=== PATIENT | male | born 1930 | race Caucasian/White ===

== ENCOUNTER → 2016-12-29 | Outpatient (CLI) | payer OTHER, BC ==
[2016-07-06 11:44] VITALS: BP 75/41
[2016-12-29 09:56] LABS: CREATININE 1.33 mg/dL (0.70-1.30)
--- NOTE | 2016-12-29 17:28 | MRI ---
HISTORY: Radiculopathy. Study: MRI lumbar spine without contrast. Comparison: MRI lumbar spine dated May 14, 2016. Technique: Multiplanar multi-sequence MRI of the lumbar spine was obtained. Sagittal T1, sagittal T 2, and stir weighted images, axial T1, and axial T2 images were obtained. Findings: Patient is status post posterior fusion at L4-L5. Otherwise, anatomic alignment without acute fractu re or listhesis. Multilevel disc desiccation with moderate disc height loss at L4-L5. Associated typ e 1 Modic endplate changes. The conus medullaris terminates at L1. A small seroma seen posterior to the surgical site. Otherwise, the soft tissues are unremarkable. L1 -- L2: No significant disc bulge, neural foraminal narrowing, or spinal canal stenosis. L2 -- L3: No significant disc bulge, neural foraminal narrowing, or spinal canal stenosis. L3 -- L4: Broad-based disc bulge with associated moderate to severe ligamentum flavum/facet hypertro phy causing moderate left and mild/moderate right neural foraminal narrowing. No significant spinal canal stenosis. L4 -- L5: No significant recurrent disc bulge. Moderate to severe facet hypertrophy causing moderate to severe bilateral neural foraminal narrowing. No significant spinal canal stenosis. L5 -- S1: Broad-based disc bulge with associated moderate to severe ligamentum flavum/facet hypertro phy causing bilateral moderate to severe neural foraminal narrowing. No significant spinal canal demi nosis. IMPRESSION: Postsurgical and chronic degenerative changes as above. Reported By:
== END | disposition home or self-care (01) | DRG 552 ==
LOC: RAD 09:10
PROVIDERS: ATTEND Neurological Surgery
DX: M51.26 Other intervertebral disc displacement, lumbar region (principal); M54.16 Radiculopathy, lumbar region
CPT/HCPCS: 36415; 72148; 82565; 84520

== ENCOUNTER → 2017-05-10 | Outpatient (CLI) | payer OTHER, BC ==
[2016-07-06 11:44] VITALS: BP 75/41
[2017-05-10 09:35] LABS: BASOPHILS # (AUTO) 0.1 X10^3/uL (0.0-0.1); BASOPHILS % (AUTO) 0.8 % (0.2-1.0); EOSINOPHILS # (AUTO) 0.5 x10^3/uL (0.0-0.2); EOSINOPHILS % (AUTO) 5.8 % (0.9-2.9); HEMOGLOBIN 12.4 g/dL (13.5-18.0); LYMPHOCYTES # (AUTO) 2.8 X10^3/uL (1.3-2.9); MEAN CORPUSCULAR HEMOGLOBIN 30.3 pg (27.0-34.0); MEAN CORPUSCULAR HGB CONC 34.4 g/dL (33.0-35.0); MEAN CORPUSCULAR VOLUME 88.3 fL (80.0-100.0); MEAN PLATELET VOLUME 7.8 fL (7.4-11.0); MONOCYTES # (AUTO) 0.7 x10^3/uL (0.3-0.8); MONOCYTES % (AUTO) 7.6 % (0.0-13.0); NEUTROPHILS # (AUTO) 4.7 x10^3/uL (2.2-4.8); NEUTROPHILS % (AUTO) 53.8 % (42.0-75.0); PLATELET COUNT 218 X10^3/uL (150.0-450.0); RED BLOOD COUNT 4.07 X10^6/uL (4.7-6.0); RED CELL DISTRIBUTION WIDTH 13.4 % (11.6-16.5); WHITE BLOOD COUNT 8.7 X10^3/uL (3.6-10.0)
[2017-05-10 09:38] LABS: ALBUMIN 3.5 g/dL (3.4-5.0); BLOOD UREA NITROGEN 22 mg/dL (7-18); CALCIUM 9.2 mg/dL (8.5-10.1); CARBON DIOXIDE 28.3 mmol/L (21-32); CHLORIDE 103 mmol/L (98-107); CREATININE 1.39 mg/dL (0.70-1.30); PHOSPHORUS 2.7 mg/dL (2.6-4.7); SODIUM 138 mmol/L (136-145); URIC ACID 5.6 mg/dL (3.5-7.2); eGFR BLACK RACES > 60 (>60); eGFR NON BLACK RACES 52 (>60)
[2017-05-10 09:52] LABS: CREATININE,URINE 60.96 mg/dL (40-278); TOTAL PROTEIN,URINE 7.3 mg/dl (0-11.9)
== END ==
LOC: LAB 08:51
PROVIDERS: ATTEND Internal Medicine
DX: I12.9 Hypertensive chronic kidney disease with stage 1 through stage 4 chronic kidney disease, or unspecified chronic kidney disease (principal); N18.9 Chronic kidney disease, unspecified
CPT/HCPCS: 36415; 80069; 82570; 84157; 84550; 85025

== ENCOUNTER 2019-09-20 09:42 | Inpatient (IN) ==
--- NOTE | 2019-09-20 09:56 | DR.SOBA ---
HPI - Time Seen Time seen: 09:55 - HPI Comment HPI Comment: Patient complaint of fever dyspnea onset today. Saw Dr. PETERS for last 2 weeks for stomache soreness. Patient here for further test and fever. - COVID-19 Coronavirus risk:travel/contact w/high risk person: No Has patient experienced Coronavirus symptoms: Yes Coronavirus symptoms experienced: Fever, Shortness of Breath - Reviewed Nurses Notes Reviewed: Yes - Source History Provided: Patient - Mode of Arrival Mode of Arrival: EMS - Context Onset:: At Rest History of:: None Currently on:: Neither - Modifying Factors Worsens:: Nothing - Associated Signs and Symptoms Associated Signs and Symptoms: Fever - If Cough Cough: None PMH - PMH Past Medical History: Dyslipidemia, GERD, Hypertension, Hypothyroidism Past Surgical History: Yes Surgical History: Ortho Surgery, Tonsillectomy - Social History Does patient currently use any type of tobacco product: No Do you use any recreational Drugs:: No ROS - Review of Systems Constitutional: Fever, Weakness Eyes: No Symptoms Reported ENTM: No Symptoms Reported Respiratoy: Short of Breath Cardiovascular: No Symptoms Reported Gastrointestinal/Abdominal: Abdominal Pain Genitourinary: No Symptoms Reported Neurological: No Symptoms Reported Musculoskeletal: No Symptoms Reported Integumentary: No Symptoms Reported Hematologic/Lymphatic: No Symptoms Reported Endocrine: No Symptoms Reported Psychiatric: No Symptoms Reported All Other Systems: Reviewed and Negative PE - General Limitations: No Limitations General Appearance: Alert, In No Apparent Distress - Head Head Exam: Normal Inspection - Eyes Eye exam: Normal Appearance, EOMI - ENT ENT Exam: Normal Exam, Normal Oropharynx - Neck Neck Exam: Normal Inspection, Full ROM, Trachea Midline - Chest Chest Inspection: Normal Inspection - Respiratory Respiratory Exam: Normal Lung Sounds Bilat, Accessory Muscle Use Respiratory Exam: Bilateral Clear to Auscultation - Cardiovascular Cardiovascular Exam: Tachycardia - Abdominal Exam Abdominal Exam: Normal Inspection, Normal Bowel Sounds, Soft. negative: Distent ion, Tenderness, Guarding Abdominal Tenderness: Epigastrium - Extremities Extremities Exam: Normal Inspection - Back Back Exam: Normal Inspection, Full ROM - Neurologic Neurological Exam: Alert, Oriented X3, CN II-XII Intact - Psychiatric Psychiatric Exam: Normal Mood - Skin Skin Exam: Intact, Normal Color - Vital Signs Vitals: Temperature 102.5 F Pulse Rate [Left Radial] 104 Pulse Rate 118 Respiratory Rate 18 Blood Pressure [Right Arm] 89/41 Blood Pressure [Left Arm] 128/61 Blood Pressure [Standing] 89/50 Blood Pressure [Sitting] 110/61 Blood Pressure [Lying] 109/52 Blood Pressure 125/56 O2 Sat by Pulse Oximetry 100 Course - Treatment Treatment: 1211: case discussed with DR. Peters [place] start sepsis protocol ROR - Labs Reviewed Result Diagrams: 09/20/19 10:05 09/20/19 10:05 - XRAY XRAY Interpreted by: Radiologist - Labs Reviewed Laboratory: WBC 16.8 X10^3/uL (3.6-10.0) H 09/20/19 10:05 RBC 3.27 X10^6/uL (4.7-6.0) L 09/20/19 10:05 Hgb 9.9 g/dL (13.5-18.0) L 09/20/19 10:05 Hct 29.6 % (42.0-54.0) L 09/20/19 10:05 MCV 90.5 fL (80.0-100.0) 09/20/19 10:05 MCH 30.4 pg (27.0-34.0) 09/20/19 10:05 MCHC 33.6 g/dL (33.0-35.0) 09/20/19 10:05 RDW 13.5 % (11.6-16.5) 09/20/19 10:05 Plt Count 360 X10^3/uL (150.0-450.0) 09/20/19 10:05 Plt Count Comment Adequate (ADEQUATE) 09/20/19 10:05 MPV 7.0 fL (7.4-11.0) L 09/20/19 10:05 Neut % (Auto) 95.2 % (42.0-75.0) H 09/20/19 10:05 Lymph % (Auto) 3.7 % (21.0-51.0) L 09/20/19 10:05 [place] % (Auto) 0.2 % (0.0-13.0) 09/20/19 10:05 Eos % (Auto) 0.7 % (0.9-2.9) L 09/20/19 10:05 Baso % (Auto) 0.2 % (0.2-1.0) 09/20/19 10:05 Neut # (Auto) 16.0 x10^3/uL (2.2-4.8) H 09/20/19 10:05 Lymph # (Auto) 0.6 X10^3/uL (1.3-2.9) L 09/20/19 10:05 [place] # (Auto) 0 x10^3/uL (0.3-0.8) L 09/20/19 10:05 Eos # (Auto) 0.1 x10^3/uL (0.0-0.2) 09/20/19 10:05 Baso # (Auto) 0.0 X10^3/uL (0.0-0.1) 09/20/19 10:05 Absolute Nucleated RBC 0.0 /100WBC 09/20/19 10:05 Total Counted 100 09/20/19 10:05 Neutrophils % (Manual) 91 % (39-76) H 09/20/19 10:05 Band Neutrophils % 4 % (0-10) 09/20/19 10:05 Lymphocytes % (Manual) 4 % (13-43) L 09/20/19 10:05 Monocytes % (Manual) 1 % (4-9) L 09/20/19 10:05 Plt Morphology Comment Normal (NORMAL) 09/20/19 10:05 RBC Morphology Normal (NORMAL) 09/20/19 10:05 ESR 108 MM/HOUR (0-15) H 09/20/19 10:05 Sodium 135 mmol/L (136-145) L 09/20/19 10:05 Corrected Sodium 136 mmol/L (136-145) 09/20/19 10:05 Potassium 4.5 mmol/L (3.5-5.1) 09/20/19 10:05 Chloride 100 mmol/L (98-107) 09/20/19 10:05 Carbon Dioxide 25.3 mmol/L (21-32) 09/20/19 10:05 BUN 33 mg/dL (7-18) H 09/20/19 10:05 Creatinine 2.10 mg/dL (0.70-1.30) H 09/20/19 10:05 Est GFR (MDRD) Af Amer 39 (>60) L 09/20/19 10:05 Est GFR (MDRD) Non-Af 32 (>60) L 09/20/19 10:05 Glucose 123 mg/dL (65-99) H 09/20/19 10:05 Calcium 8.5 mg/dL (8.5-10.1) 09/20/19 10:05 Corrected Calcium 9.9 mg/dL (8.5-10.1) 09/20/19 10:05 Total Bilirubin 0.50 mg/dL (0.2-1.0) 09/20/19 10:05 AST 25 Units/L (15-37) 09/20/19 10:05 ALT 28 Units/L (12-78) 09/20/19 10:05 Alkaline Phosphatase 147 Units/L (46-116) H 09/20/19 10:05 C-Reactive Protein 178.70 mg/L (0-3.0) H 09/20/19 10:05 Total Protein 6.9 g/dL (6.4-8.2) 09/20/19 10:05 Albumin 2.3 g/dL (3.4-5.0) L 09/20/19 10:05 Globulin 4.6 g/dL (2.5-4.5) H 09/20/19 10:05 Albumin/Globulin Ratio 0.5 Ratio (1.1-2.1) L 09/20/19 10:05 Influenza Type A Ag Negative-presumptive (NEGATIVE) 09/20/19 10:15 Influenza Type B Ag Negative-presumptive (NEGATIVE) 09/20/19 10:15 Mycoplasma pneumon IgG Negative (NEGATIVE) 09/20/19 10:05 S. pyogenes (TEM-PCR) Not detected (NOT DETECT) 09/20/19 10:15 - XRAY Xray Findings: GB ultrasound: hepatic steatosis AAS: No acute findings (NEDRA DO) Opioid - Opioid Risk Tool Total: 0 Total Score Risk Category: Low Risk - Diagnosis Discharge Problem: Sepsis associated hypotension - Discharge Plan Condition: Stable - Follow ups/Referrals Follow ups/Referrals: BRITTANIE PETERS [Primary Care Provider] - 3 days - Instructions
[2019-09-20] MEDS ORDERED: XOPENEX 1.25 MG/3 ML NEBULE NEB ONE ×2 (10:01→10:15)
[2019-09-20 10:09] VITALS: BMI 25.1
[2019-09-20 10:09] LABS: BASOPHILS % (AUTO) 0.2 % (0.2-1.0); EOSINOPHILS # (AUTO) 0.1 x10^3/uL (0.0-0.2); EOSINOPHILS % (AUTO) 0.7 % (0.9-2.9); HEMATOCRIT 29.6 % (42.0-54.0); HEMOGLOBIN 9.9 g/dL (13.5-18.0); LYMPHOCYTES # (AUTO) 0.6 X10^3/uL (1.3-2.9); LYMPHOCYTES % (AUTO) 3.7 % (21.0-51.0); MEAN CORPUSCULAR HEMOGLOBIN 30.4 pg (27.0-34.0); MEAN CORPUSCULAR HGB CONC 33.6 g/dL (33.0-35.0); MEAN CORPUSCULAR VOLUME 90.5 fL (80.0-100.0); MONOCYTES # (AUTO) 0 x10^3/uL (0.3-0.8); MONOCYTES % (AUTO) 0.2 % (0.0-13.0); NEUTROPHILS % (AUTO) 95.2 % (42.0-75.0); PLATELET COUNT 360 X10^3/uL (150.0-450.0); RED BLOOD COUNT 3.27 X10^6/uL (4.7-6.0); RED CELL DISTRIBUTION WIDTH 13.5 % (11.6-16.5); WHITE BLOOD COUNT 16.8 X10^3/uL (3.6-10.0)
[2019-09-20 10:29] LABS: BAND NEUTROPHILS % 4 % (0-10); PLATELET MORPHOLOGY COMMENT NORMAL (NORMAL)
[2019-09-20 10:38] LABS: ALBUMIN 2.3 g/dL (3.4-5.0); CALCIUM 8.5 mg/dL (8.5-10.1); CARBON DIOXIDE 25.3 mmol/L (21-32); COR CA(FOR HYPOALB) 9.9 mg/dL (8.5-10.1); CREATININE 2.1 mg/dL (0.70-1.30); TOTAL PROTEIN 6.9 g/dL (6.4-8.2)
[2019-09-20 10:47] LABS: ERYTHROCYTE SEDIMENTATION RATE 108 MM/HOUR (0-15)
--- NOTE | 2019-09-20 10:50 | RAD ---
HISTORYRUQ PAIN, SOB, FEVER HTN, SPINE, ORTHO, TONSILSSTUDYACUTE ABDOMEN SERIESCOMPARISONNoneFINDINGSThe trachea is midline. The cardiac silhouette is [unremarkable]. [The lungs are relatively clear without focalconsolidation. The aortic knob is partially calcified.Flat plate and upright evaluation of the abdomen demonstrates a [nonspecific bowel gas pattern.]. The renal shadows are partially obscured by overlying bowel content. Postoperative and degenerative changes of the spine are noted. If symptoms or clinical concern persist recommend continue follow-up for further evaluation.IMPRESSION1. [No acute cardiopulmonary disease.]2. [Overall nonspecific bowel gas pattern.]Electronically signed by: SARAI SALCIDO (Sep 20, 2019 10:49:20)
[2019-09-20 11:13] LABS: MYCOPLASMA PNEUMONIAE IGM AB NEGATIVE (NEGATIVE)
--- NOTE | 2019-09-20 11:26 | US ---
HISTORYRUQ PAINSTUDYGALL BLADDERCOMPARISONNoneTECHNIQUEMultiple nation scale and color flow Doppler images of the right upper quadrant were obtained.FINDINGSThe liver measures 13.9 cm. Increased echogenicity throughout the liver suggests fatty infiltration. Correlate clinically as other causes of hepatic disease may produce a similar appearance. No definite shadowing echogenic stones are appreciated within the gallbladder. Gallbladder wall thickness is within normal limits measuring approximately 2.6 mm. The common bile duct is within normal limits in caliber measuring 2.1 mm. The right kidney measures 9.2 x 5.8 x 5.0 cm. The right renal cortical thickness measures 1.8 cm. Pancreas is incompletely visualized. Proximal abdominal aorta measures 1.3 cm. The mid abdominal aorta measures 1.4 cm. The distal abdominal aorta measures 1.4 cm.IMPRESSIONSonographic findings of hepatic steatosis.Electronically signed by: SARAI SALCIDO (Sep 20, 2019 11:25:52)
[2019-09-20] MEDS ORDERED: NS 1000 ML 1,000 ML ONE ×2 (11:32→12:36)
[2019-09-20] MEDS ORDERED: NS 1000 ML 1,000 ML IV ONE (11:32)
[2019-09-20] MEDS ORDERED: DOPAMINE IV PREMIX 400 MG/250 ML 400 MG/250 ML BAG IV ONE (12:03)
[2019-09-20] MEDS ORDERED: NS 500 ML IV 500 ML IV ONE (12:06)
[2019-09-20] MEDS: DOPAMINE IV PREMIX 400 MG/250 ML 400 MG/250 ML BAG IV PRN (12:10)
[2019-09-20] MEDS ORDERED: VANCOMYCIN IV *PREMIX 1 G/200 ML BAG 1 G/200 ML PIGGYBACK IV ONE (12:18)
[2019-09-20] MEDS ORDERED: NS 250 ML IV 250 ML IV ONE (12:34)
[2019-09-20] MEDS ORDERED: VANCOMYCIN HCL ONE (12:34)
[2019-09-20] MEDS: NS 1000 ML 1,000 ML IV SCH ×2 (12:43→21:21)
[2019-09-20] MEDS: ZOSYN VIAL 3.375 GRAMS 3.375 G in NS 100 ML IV + SPIKE MINIBAG* 100 ML IV SCH ×2 (13:55→21:06)
--- NOTE | 2019-09-20 15:52 | CT ---
HISTORY:SepsisStudy: CT abdomen and pelvis without contrastComparison:NoneTechnique: Multiple axial images of the abdomen and pelvis were obtained without IV contrast. Oral contrast was administered. Dose reduction techniques including Automated Exposure Control (AEC) and adjustment of mA and kV were utilized.FINDINGS:Please note evaluation is limited without IV contrast.There is borderline cardiomegaly with extensive calcified plaque throughout the coronary arteries. There is bibasilar atelectasis. There is inflammatory stranding around the pancreas with low-attenuation changes compatible with pancreatitis. Necrotizing pancreatitis not excluded on noncontrast imaging. Inflammatory changes and low-density fluid or seen extending from the pancreatic tail into the splenic capsule suggestive of a pseudocyst or abscess measuring 5.2 x 3.2 cm. Again evaluation is limited without contrast. Cholelithiasis is noted. No biliary duct dilation. There is soft tissue thickening in the region of the ampulla for which underlying mass lesion is not excluded. The unenhanced liver and adrenal glands are unremarkable. There is bilateral perinephric stranding suggestive of chronic renal insufficiency.No free intraperitoneal air. No evidence of intestinal obstruction or inflammation. Moderate retained stool is seen throughout the colon with scattered colonic diverticula. The appendix is normal. No ascites.There are degenerative and postsurgical changes of the lumbosacral spine. There is extensive vascular plaque throughout the aorta and branch vessels. No pathologically enlarged lymph nodes are identified. Normal urinary bladder.IMPRESSION ABDOMEN/PELVIS:1. Inflammatory stranding in low-attenuation changes of the pancreas concerning for pancreatitis; necrotizing pancreatitis not excluded on noncontrast imaging. Low-density fluid seen at the pancreatic tail that extends to the splenic capsule may represent a pseudocyst or abscess measuring 5.2 x 3.2 cm.2. Cholelithiasis.3. There is suggestion of soft tissue thickening at the ampulla that may be reactive in nature but cannot exclude underlying ampullary lesion.4. Colonic diverticulosis and additional findings as noted above.Electronically signed by: YADI PATRICIA (Sep 20, 2019 15:51:30)
--- NOTE | 2019-09-20 16:12 | DR.H&P ---
H&P History & Physical for Day of: H&P Date: 09/20/19 Chief Complaint Chief Complaint: abdominal pain, weakness, chills Allergies Allergies Allergy/AdvReac Type Severity Reaction Status Date / Time niacin Allergy Verified 09/20/19 10:09 History of Present Illness History of Present Illness: Mr. June is a 89y/o male with a PMH of HTN and GERD who was seen by his PCP yesterday due to weakness, abdominal pain and fever. Patient states he has been feeling sick for about 10 days. He reports generalized weakness, decreased appetite and diffuse abdominal pain. He describes the pain as achy in the abdomen that has been intermittent, does not get worse with eating. He also reports low grade fever, chills and rigors. He was given Rocephin shot along with oral antibiotics and advised to get labs done along with GB U/S and abdominal XR. He also had a COVID swab done while in clinic which is pending.Patient reports he started having bad shakes and chills today so his called 911 and he was brought to the ED. He reports not taking his BP medication today. He denies hx of CAD or COPD. No smoking hx. Denies any abdominal problems in the past. ED work-up: Abdominal Xr/CXR: no acute process GB U/S: normal gallbladder and CBD, hepatic steatosis CTAP: inflammatory stranding in the pancreas concerning for pancreatitis, fluid seen at the pancreatic tail that extends to the splenic capsule may represent pseudocyst/abscess. Cholelithiasis. Thickening at the ampulla may be reactive but cannot exclude underlying lesion. Labs: elevated WBC: 16.8, Cr: 2.10 Hgb: 9.9 Lactic acid: 1.5 CRP: 178 Blood cultures collected, Strep, Flu, Mycoplasma negative. COVID pending Patient's BP dropped while in ED, received 2L NS but SBP in 80s, started on dopamine drip. Received dose of Vancomycin. Plan: titrate dopamine to keep MAP > 65, increase NS to 150 cc/hr, NPO, pain control prn, hold anti-hypertensives, check CEA, CA 19-9. Hood consult Dr. Trejo with surgery. Monitor AM labs. Follow cultures and COVID results. Continue vancomycin, add Zosyn. Past Medical History Past Medical History: Dyslipidemia, GERD, Hypertension and Hypothyroidism Past Surgical History Surgical History: Ortho Surgery Social History Does patient currently use any type of tobacco product: No Have you used tobacco products in the last 12 months: No Type of Tobacco Use: None Does any household member use tobacco: No Alcohol Use: Rarely Drug Use: None Medications Home Medications: niacin Allergy (Verified 09/20/19 10:09) CONTINUE taking the following medications doxycycline hyclate 100 mg PO BID 09/20/19 [History] Labs Result Diagrams: 09/20/19 10:05 09/20/19 10:05 Labs: Laboratory WBC 16.8 X10^3/uL (3.6-10.0) H 09/20/19 10:05 RBC 3.27 X10^6/uL (4.7-6.0) L 09/20/19 10:05 Hgb 9.9 g/dL (13.5-18.0) L 09/20/19 10:05 Hct 29.6 % (42.0-54.0) L 09/20/19 10:05 MCV 90.5 fL (80.0-100.0) 09/20/19 10:05 MCH 30.4 pg (27.0-34.0) 09/20/19 10:05 MCHC 33.6 g/dL (33.0-35.0) 09/20/19 10:05 RDW 13.5 % (11.6-16.5) 09/20/19 10:05 Plt Count 360 X10^3/uL (150.0-450.0) 09/20/19 10:05 Plt Count Comment Adequate (ADEQUATE) 09/20/19 10:05 MPV 7.0 fL (7.4-11.0) L 09/20/19 10:05 Neut % (Auto) 95.2 % (42.0-75.0) H 09/20/19 10:05 Lymph % (Auto) 3.7 % (21.0-51.0) L 09/20/19 10:05 [place] % (Auto) 0.2 % (0.0-13.0) 09/20/19 10:05 Eos % (Auto) 0.7 % (0.9-2.9) L 09/20/19 10:05 Baso % (Auto) 0.2 % (0.2-1.0) 09/20/19 10:05 Neut # (Auto) 16.0 x10^3/uL (2.2-4.8) H 09/20/19 10:05 Lymph # (Auto) 0.6 X10^3/uL (1.3-2.9) L 09/20/19 10:05 [place] # (Auto) 0 x10^3/uL (0.3-0.8) L 09/20/19 10:05 Eos # (Auto) 0.1 x10^3/uL (0.0-0.2) 09/20/19 10:05 Baso # (Auto) 0.0 X10^3/uL (0.0-0.1) 09/20/19 10:05 Absolute Nucleated RBC 0.0 /100WBC 09/20/19 10:05 Total Counted 100 09/20/19 10:05 Neutrophils % (Manual) 91 % (39-76) H 09/20/19 10:05 Band Neutrophils % 4 % (0-10) 09/20/19 10:05 Lymphocytes % (Manual) 4 % (13-43) L 09/20/19 10:05 Monocytes % (Manual) 1 % (4-9) L 09/20/19 10:05 Plt Morphology Comment Normal (NORMAL) 09/20/19 10:05 RBC Morphology Normal (NORMAL) 09/20/19 10:05 ESR 108 MM/HOUR (0-15) H 09/20/19 10:05 Sodium 135 mmol/L (136-145) L 09/20/19 10:05 Corrected Sodium 136 mmol/L (136-145) 09/20/19 10:05 Potassium 4.5 mmol/L (3.5-5.1) 09/20/19 10:05 Chloride 100 mmol/L (98-107) 09/20/19 10:05 Carbon Dioxide 25.3 mmol/L (21-32) 09/20/19 10:05 BUN 33 mg/dL (7-18) H 09/20/19 10:05 Creatinine 2.10 mg/dL (0.70-1.30) H 09/20/19 10:05 Est GFR (MDRD) Af Amer 39 (>60) L 09/20/19 10:05 Est GFR (MDRD) Non-Af 32 (>60) L 09/20/19 10:05 Glucose 123 mg/dL (65-99) H 09/20/19 10:05 Lactic Acid 1.5 mmol/L (0.4-2.0) 09/20/19 12:25 Calcium 8.5 mg/dL (8.5-10.1) 09/20/19 10:05 Corrected Calcium 9.9 mg/dL (8.5-10.1) 09/20/19 10:05 Total Bilirubin 0.50 mg/dL (0.2-1.0) 09/20/19 10:05 AST 25 Units/L (15-37) 09/20/19 10:05 ALT 28 Units/L (12-78) 09/20/19 10:05 Alkaline Phosphatase 147 Units/L (46-116) H 09/20/19 10:05 C-Reactive Protein 178.70 mg/L (0-3.0) H 09/20/19 10:05 Total Protein 6.9 g/dL (6.4-8.2) 09/20/19 10:05 Albumin 2.3 g/dL (3.4-5.0) L 09/20/19 10:05 Globulin 4.6 g/dL (2.5-4.5) H 09/20/19 10:05 Albumin/Globulin Ratio 0.5 Ratio (1.1-2.1) L 09/20/19 10:05 Influenza Type A Ag Negative-presumptive (NEGATIVE) 09/20/19 10:15 Influenza Type B Ag Negative-presumptive (NEGATIVE) 09/20/19 10:15 Mycoplasma pneumon IgG Negative (NEGATIVE) 09/20/19 10:05 S. pyogenes (TEM-PCR) Not detected (NOT DETECT) 09/20/19 10:15 Review of Systems Constitutional: Fever, Chills, Weakness and Malaise Eyes: No Symptoms Reported ENT: No Symptoms Reported Respiratory: No Symptoms Reported Cardiovascular: Light Headedness Gastrointestinal: Vomiting and Abdominal Pain Genitourinary: No Symptoms Reported Musculoskeletal: Back Pain Skin: No Symptoms Reported Neurological: No Symptoms Reported Physical Exam Vital Signs: Temperature 99.5 F Pulse Rate [Left Radial] 104 Pulse Rate 107 Respiratory Rate 35 Blood Pressure [Right Arm] 89/41 Blood Pressure [Left Arm] 128/61 Blood Pressure [Standing] 89/50 Blood Pressure [Sitting] 110/61 Blood Pressure [Lying] 109/52 Blood Pressure 108/53 O2 Sat by Pulse Oximetry 100 Oriented: Normal Eyes: Normal Nose: Normal Throat: Normal Respiratory: Diminished Throughout Cardiovascular: Normal Auscultation: Bowel Sounds: Decreased Palpation: Normal Tenderness: Normal Skin: Normal Musculoskeletal: Normal Psychiatric: Normal Mood Description: Calm Affect: Normal Speech Pattern: Clear and Appropriate Assessment/Plan (1) Sepsis associated hypotension: Status: Acute (2) Acute pancreatitis: Qualifiers: Acute pancreatitis complication: unspecified Pancreatitis type: unspecified pancreatitis type Qualified Code(s): K85.90 - Acute pancreatitis without necrosis or infection, unspecified Status: Acute (3) Suspected COVID-19 virus infection: Status: Acute (4) Anemia: Qualifiers: Anemia type: other cause Other causes of anemia: other cause, not classified Qualified Code(s): D64.89 - Other specified anemias Status: Acute (5) FARRAH (acute kidney injury): Status: Acute Review H&P Reviewed: Yes Patient was examined?: Yes
[2019-09-20] MEDS ORDERED: ULTRAM PO PRN (16:48)
[2019-09-20 18:44] LABS: AMYLASE 94 Units/L (25-115); LIPASE 1177 Units/L (73-393)
[2019-09-20 19:31] LABS: APPEARANCE,URINE CLEAR (CLEAR); BILIRUBIN,URINE NEGATIVE (NEGATIVE); BLOOD/HEMOGLOBIN,URINE NEGATIVE (NEGATIVE); COLOR,URINE YELLOW (YELLOW); GLUCOSE, URINE NEGATIVE (NEGATIVE); KETONES,URINE NEGATIVE (NEGATIVE); LEUKOCYTE ESTERASE ,URINE NEGATIVE (NEGATIVE); NITRITES,URINE NEGATIVE (NEGATIVE); PROTEIN,URINE 1+ (NEGATIVE); UROBILINOGEN,URINE NORMAL (NORMAL)
[2019-09-20 19:38] LABS: BACTERIA,URINE TRACE /HPF (NEGATIVE); MUCUS,URINE FEW /HPF (NEGATIVE); RBC,URINE 0-2 /HPF (0-3); SQUAMOUS EPITHELIAL CELL,UR FEW /HPF (NEGATIVE)
[2019-09-20] MEDS: LIPITOR TAB 10 MG PO SCH (20:23)
[2019-09-20] MEDS: PREVACID PO SCH (20:24)
[2019-09-20] MEDS ORDERED: PRAVASTATIN SODIUM 40 MG PO SCH (21:00)
[2019-09-21] MEDS: DOPAMINE IV PREMIX 400 MG/250 ML 400 MG/250 ML BAG IV PRN ×5 (00:35→13:46)
[2019-09-21] MEDS: NS 1000 ML 1,000 ML IV SCH ×4 (03:12→20:40)
[2019-09-21] MEDS: ZOSYN VIAL 3.375 GRAMS 3.375 G in NS 100 ML IV + SPIKE MINIBAG* 100 ML IV SCH ×3 (06:00→21:30)
[2019-09-21 06:02] LABS: BASOPHILS % (AUTO) 0.1 % (0.2-1.0); HEMATOCRIT 28.7 % (42.0-54.0); HEMOGLOBIN 9.6 g/dL (13.5-18.0); LYMPHOCYTES % (AUTO) 3.1 % (21.0-51.0); MEAN CORPUSCULAR HEMOGLOBIN 29.9 pg (27.0-34.0); MEAN CORPUSCULAR HGB CONC 33.3 g/dL (33.0-35.0); MEAN CORPUSCULAR VOLUME 89.7 fL (80.0-100.0); MEAN PLATELET VOLUME 7.5 fL (7.4-11.0); MONOCYTES # (AUTO) 1.2 x10^3/uL (0.3-0.8); MONOCYTES % (AUTO) 3.9 % (0.0-13.0); NEUTROPHILS # (AUTO) 28.8 x10^3/uL (2.2-4.8); NEUTROPHILS % (AUTO) 92.9 % (42.0-75.0); PLATELET COUNT 333 X10^3/uL (150.0-450.0); RED CELL DISTRIBUTION WIDTH 13.2 % (11.6-16.5)
[2019-09-21 06:25] LABS: WHITE BLOOD COUNT 31.1 X10^3/uL (3.6-10.0)
--- NOTE | 2019-09-21 06:25 | RAD ---
HISTORYHypoxiaSTUDYCHEST, 1 VIEWCOMPARISONNoneFINDINGSThe heart is within normal limits in size. The chely are normal. The lung gaffney are clear. No pleural effusions are identified. Bony thorax is unremarkable.IMPRESSIONNo significant abnormality identifiedElectronically signed by: PAMELA MARIE (September 21, 2019 06:24:00)
[2019-09-21 06:26] LABS: CALCIUM 7.9 mg/dL (8.5-10.1); CARBON DIOXIDE 22.2 mmol/L (21-32); COR CA(FOR HYPOALB) 9.5 mg/dL (8.5-10.1); CREATININE 2.05 mg/dL (0.70-1.30); TOTAL PROTEIN 6.6 g/dL (6.4-8.2)
[2019-09-21 06:46] LABS: BAND NEUTROPHILS % 6 % (0-10)
[2019-09-21 06:47] LABS: PLATELET MORPHOLOGY COMMENT NORMAL (NORMAL)
[2019-09-21] MEDS: VANCOMYCIN HCL 1 G in D5W 250 ML IV 250 ML IV SCH (08:57)
[2019-09-21] MEDS: PREVACID PO SCH ×2 (08:57→20:26)
[2019-09-21 10:22] LABS: ABG BASE EXCESS -1.9 mmol/L (-2.0-2.0); ABG HCO3 22.2 mmol/L (22-26)
[2019-09-21 10:23] LABS: ABG ALLEN TEST POS
[2019-09-21 10:46] LABS: BILIRUBIN,URINE NEGATIVE (NEGATIVE); BLOOD/HEMOGLOBIN,URINE 3+ (NEGATIVE); GLUCOSE, URINE 1+ (NEGATIVE); KETONES,URINE NEGATIVE (NEGATIVE); LEUKOCYTE ESTERASE ,URINE NEGATIVE (NEGATIVE); NITRITES,URINE NEGATIVE (NEGATIVE); PROTEIN,URINE 2+ (NEGATIVE); UROBILINOGEN,URINE NORMAL (NORMAL)
[2019-09-21 10:54] LABS: APPEARANCE,URINE CLEAR (CLEAR); COLOR,URINE YELLOW (YELLOW)
[2019-09-21 10:55] LABS: AMORPHOUS SEDIMENT,UR 2+ /HPF (NEGATIVE); SQUAMOUS EPITHELIAL CELL,UR RARE /HPF (NEGATIVE); TRANSITIONAL EPI CELLS,URINE FEW /HPF (NEGATIVE)
[2019-09-21 10:56] LABS: MUCUS,URINE FEW /HPF (NEGATIVE)
[2019-09-21 10:57] LABS: BACTERIA,URINE NEGATIVE /HPF (NEGATIVE)
[2019-09-21 10:58] LABS: GRANULAR CASTS,URINE FEW /LPF (NEGATIVE)
--- NOTE | 2019-09-21 11:24 | DR.PROGNOT ---
Hospital Progress Notes - Progress Note for Day of: Progress Note Date: 09/21/19 - Chief Complaint Chief Complaint: had another episode of chills and fever early on .. feeling better now . no SOB , vo chest pain or coughing . moderate abdominal pain , tolerated diet well and had normal BM. BP dropped after stopping DOPAMIN . GOOD URINE OUT PUT . ABG was normal. WBC was high 31.000. Amylase , Lipase - Past Medical Family Social History Past Med/Fam/Surg Hx: No changes since H&P Allergies: Allergies niacin Allergy (Verified 09/20/19 10:09) - Review Of Systems ROS: No change since H&P - Vital Signs Vital Signs: Temperature 97.8 F Pulse Rate [Left Radial] 104 Pulse Rate 76 Respiratory Rate 31 Blood Pressure [Right Arm] 89/41 Blood Pressure [Left Arm] 128/61 Blood Pressure [Standing] 89/50 Blood Pressure [Sitting] 110/61 Blood Pressure [Lying] 109/52 Blood Pressure 120/58 O2 Sat by Pulse Oximetry 99 - Physical Exam Oriented: Normal Eyes: Normal Nose: Normal Throat: Normal Respiratory: Normal Cardiovascular: Other (still on small dose of Dopamin ) : Normal GI:Auscultation: Decreased GI:Palpation: Normal GI: Tenderness: Diffuse (diffuse tenderness with hypoactive BS . no rebound ) Skin: Normal Musculoskeletal: Normal Psychiatric: Normal Mood Description: Calm Affect: Normal Speech Pattern: Clear, Appropriate - Laboratory and Diagnostics Result Diagrams: 09/21/19 05:42 09/21/19 05:42 Labs: Laboratory WBC 31.1 X10^3/uL (3.6-10.0) H* D 09/21/19 05:42 RBC 3.20 X10^6/uL (4.7-6.0) L 09/21/19 05:42 Hgb 9.6 g/dL (13.5-18.0) L 09/21/19 05:42 Hct 28.7 % (42.0-54.0) L 09/21/19 05:42 MCV 89.7 fL (80.0-100.0) 09/21/19 05:42 MCH 29.9 pg (27.0-34.0) 09/21/19 05:42 MCHC 33.3 g/dL (33.0-35.0) 09/21/19 05:42 RDW 13.2 % (11.6-16.5) 09/21/19 05:42 Plt Count 333 X10^3/uL (150.0-450.0) 09/21/19 05:42 Plt Count Comment Increased (ADEQUATE) 09/21/19 05:42 MPV 7.5 fL (7.4-11.0) 09/21/19 05:42 Neut % (Auto) 92.9 % (42.0-75.0) H 09/21/19 05:42 Lymph % (Auto) 3.1 % (21.0-51.0) L 09/21/19 05:42 [place] % (Auto) 3.9 % (0.0-13.0) 09/21/19 05:42 Eos % (Auto) 0.0 % (0.9-2.9) L 09/21/19 05:42 Baso % (Auto) 0.1 % (0.2-1.0) L 09/21/19 05:42 Neut # (Auto) 28.8 x10^3/uL (2.2-4.8) H 09/21/19 05:42 Lymph # (Auto) 1.0 X10^3/uL (1.3-2.9) L 09/21/19 05:42 [place] # (Auto) 1.2 x10^3/uL (0.3-0.8) H 09/21/19 05:42 Eos # (Auto) 0.0 x10^3/uL (0.0-0.2) 09/21/19 05:42 Baso # (Auto) 0.0 X10^3/uL (0.0-0.1) 09/21/19 05:42 Absolute Nucleated RBC 0.0 /100WBC 09/21/19 05:42 Total Counted 100 09/21/19 05:42 Neutrophils % (Manual) 86 % (39-76) H 09/21/19 05:42 Band Neutrophils % 6 % (0-10) 09/21/19 05:42 Lymphocytes % (Manual) 6 % (13-43) L 09/21/19 05:42 Monocytes % (Manual) 2 % (4-9) L 09/21/19 05:42 Plt Morphology Comment Normal (NORMAL) 09/21/19 05:42 RBC Morphology Normal (NORMAL) 09/21/19 05:42 ESR 108 MM/HOUR (0-15) H 09/21/19 05:42 Sample Site Lrad 09/21/19 10:12 ABG pH 7.410 (7.35-7.45) 09/21/19 10:12 ABG pCO2 35.0 mmHg (35.0-45.0) 09/21/19 10:12 ABG pO2 101.0 mmHg (80.0-100.0) H 09/21/19 10:12 ABG HCO3 22.2 mmol/L (22-26) 09/21/19 10:12 ABG O2 Saturation 98.0 % (90-100) 09/21/19 10:12 ABG Base Excess -1.9 mmol/L (-2.0-2.0) 09/21/19 10:12 Damian Test Pos 09/21/19 10:12 A-a Gradient 55.0 mmHg 09/21/19 10:12 FiO2 28.0 09/21/19 10:12 Blood Gas Comments Pt katlyn well elj cdn 09/21/19 10:12 Sodium 139 mmol/L (136-145) 09/21/19 05:42 Corrected Sodium 141 mmol/L (136-145) 09/21/19 05:42 Potassium 4.3 mmol/L (3.5-5.1) 09/21/19 05:42 Chloride 105 mmol/L (98-107) 09/21/19 05:42 Carbon Dioxide 22.2 mmol/L (21-32) 09/21/19 05:42 BUN 32 mg/dL (7-18) H 09/21/19 05:42 Creatinine 2.05 mg/dL (0.70-1.30) H 09/21/19 05:42 Est GFR (MDRD) Af Amer 40 (>60) L 09/21/19 05:42 Est GFR (MDRD) Non-Af 33 (>60) L 09/21/19 05:42 Glucose 177 mg/dL (65-99) H 09/21/19 05:42 Lactic Acid 1.5 mmol/L (0.4-2.0) 09/20/19 12:25 Calcium 7.9 mg/dL (8.5-10.1) L 09/21/19 05:42 Corrected Calcium 9.5 mg/dL (8.5-10.1) 09/21/19 05:42 Iron 19 ug/dL (50-175) L 09/20/19 10:05 Transferrin 102 mg/dL (202-364) L 09/20/19 10:05 Ferritin 1349 ng/mL (26-388) H 09/20/19 10:05 Total Bilirubin 0.60 mg/dL (0.2-1.0) 09/21/19 05:42 AST 44 Units/L (15-37) H 09/21/19 05:42 ALT 42 Units/L (12-78) 09/21/19 05:42 Alkaline Phosphatase 145 Units/L (46-116) H 09/21/19 05:42 C-Reactive Protein 227.70 mg/L (0-3.0) H 09/21/19 05:42 Total Protein 6.6 g/dL (6.4-8.2) 09/21/19 05:42 Albumin 2.0 g/dL (3.4-5.0) L 09/21/19 05:42 Globulin 4.6 g/dL (2.5-4.5) H 09/21/19 05:42 Albumin/Globulin Ratio 0.4 Ratio (1.1-2.1) L 09/21/19 05:42 Amylase 49 Units/L (25-115) 09/21/19 05:42 Lipase 381 Units/L (73-393) 09/21/19 05:42 Vitamin B12 955 pg/mL (193-986) 09/20/19 10:05 Folate 19.2 ng/mL (>8.6) 09/20/19 10:05 Specimen Type Catherized urine 09/21/19 10:38 Urine Color Yellow (YELLOW) 09/21/19 10:38 Urine Appearance Clear (CLEAR) 09/21/19 10:38 Urine pH 5.0 (5.0 - 8.0) 09/21/19 10:38 Ur Specific [place] 1.020 (1.000-1.030) 09/21/19 10:38 Urine Protein 2+ (NEGATIVE) 09/21/19 10:38 Urine Glucose (UA) 1+ (NEGATIVE) 09/21/19 10:38 Urine Ketones Negative (NEGATIVE) 09/21/19 10:38 Urine Occult Blood 3+ (NEGATIVE) 09/21/19 10:38 Urine Nitrite Negative (NEGATIVE) 09/21/19 10:38 Urine Bilirubin Negative (NEGATIVE) 09/21/19 10:38 Urine Urobilinogen Normal (NORMAL) 09/21/19 10:38 Ur Leukocyte Esterase Negative (NEGATIVE) 09/21/19 10:38 Urine RBC 3-5 /HPF (0-3) A 09/21/19 10:38 Urine WBC 0-2 /HPF (0-5) 09/21/19 10:38 Ur Squamous Epith Cells Rare /HPF (NEGATIVE) 09/21/19 10:38 Ur Transition Epith Cell Few /HPF (NEGATIVE) 09/21/19 10:38 Amorphous Sediment 2+ /HPF (NEGATIVE) 09/21/19 10:38 Urine Bacteria Negative /HPF (NEGATIVE) 09/21/19 10:38 Granular Casts Few /LPF (NEGATIVE) 09/21/19 10:38 Urine Mucus Few /HPF (NEGATIVE) 09/21/19 10:38 Ur Culture Indicated? No/not indicated 09/21/19 10:38 Influenza Type A Ag Negative-presumptive (NEGATIVE) 09/20/19 10:15 Influenza Type B Ag Negative-presumptive (NEGATIVE) 09/20/19 10:15 Mycoplasma pneumon IgG Negative (NEGATIVE) 09/20/19 10:05 S. pyogenes (TEM-PCR) Not detected (NOT DETECT) 09/20/19 10:15 - Assessment and Plan 1: 1-acute pancreatitis possible distal pacreatic abscess . sepsis secondary to 1. gallstones . same IVF and ATB . DVT prophylaxis and close monitoring of BP, O2, ABG , urine output - Problem Patient Problems: Patient Problems FARRAH (acute kidney injury) (Acute) N17.9 Suspected COVID-19 virus infection (Acute) Z20.828 Acute pancreatitis (Acute) K85.90 Sepsis associated hypotension (Acute) A41.9, I95.9
[2019-09-21] MEDS: CIPRO IV 400 MG PREMIX* 400 MG/200 ML IV.SOLN. IV SCH ×2 (11:25→20:26)
[2019-09-21] MEDS ORDERED: TYLENOL 325 MG TAB PO ONE (12:37)
[2019-09-21] MEDS ORDERED: TYLENOL 325 MG TAB PO PRN (12:52)
[2019-09-21] MEDS: LIPITOR TAB 10 MG PO SCH (20:26)
[2019-09-21] MEDS: RESTORIL CAP 15 MG PO PRN (22:20)
[2019-09-22] MEDS: ZOSYN VIAL 3.375 GRAMS 3.375 G in NS 100 ML IV + SPIKE MINIBAG* 100 ML IV SCH ×3 (06:45→22:30)
[2019-09-22 07:29] LABS: ALBUMIN 1.8 g/dL (3.4-5.0); CALCIUM 7.8 mg/dL (8.5-10.1); CARBON DIOXIDE 21.5 mmol/L (21-32); COR CA(FOR HYPOALB) 9.6 mg/dL (8.5-10.1); CREATININE 1.66 mg/dL (0.70-1.30); TOTAL PROTEIN 6.1 g/dL (6.4-8.2)
[2019-09-22 07:34] LABS: BASOPHILS # (AUTO) 0.1 X10^3/uL (0.0-0.1); BASOPHILS % (AUTO) 0.4 % (0.2-1.0); EOSINOPHILS # (AUTO) 0.4 x10^3/uL (0.0-0.2); EOSINOPHILS % (AUTO) 1.7 % (0.9-2.9); HEMOGLOBIN 9.1 g/dL (13.5-18.0); LYMPHOCYTES # (AUTO) 1.6 X10^3/uL (1.3-2.9); LYMPHOCYTES % (AUTO) 7.7 % (21.0-51.0); MEAN CORPUSCULAR HEMOGLOBIN 30.3 pg (27.0-34.0); MEAN CORPUSCULAR HGB CONC 33.9 g/dL (33.0-35.0); MEAN CORPUSCULAR VOLUME 89.5 fL (80.0-100.0); MEAN PLATELET VOLUME 7.8 fL (7.4-11.0); MONOCYTES # (AUTO) 1.7 x10^3/uL (0.3-0.8); MONOCYTES % (AUTO) 8.4 % (0.0-13.0); NEUTROPHILS % (AUTO) 81.8 % (42.0-75.0); PLATELET COUNT 291 X10^3/uL (150.0-450.0); RED BLOOD COUNT 3.01 X10^6/uL (4.7-6.0); RED CELL DISTRIBUTION WIDTH 13.8 % (11.6-16.5); WHITE BLOOD COUNT 20.8 X10^3/uL (3.6-10.0)
[2019-09-22 08:39] LABS: ERYTHROCYTE SEDIMENTATION RATE 115 MM/HOUR (0-15)
[2019-09-22] MEDS: LOVENOX INJ 30 MG SYR SC SCH (09:37)
[2019-09-22] MEDS: CIPRO IV 400 MG PREMIX* 400 MG/200 ML IV.SOLN. IV SCH ×2 (09:37→20:56)
[2019-09-22] MEDS: VANCOMYCIN HCL 1 G in D5W 250 ML IV 250 ML IV SCH (09:38)
[2019-09-22] MEDS: PREVACID PO SCH ×2 (09:39→20:57)
--- NOTE | 2019-09-22 10:09 | PCM.PROG ---
Progress Note - Progress Note for Day of Date of Exam: 09/21/19 - Subjective Subjective: IS A 89 YEAR OLD PATIENT OF . HE WS ADMITTED ON 09/20/19 FOR SEPSIS. ABDOMEN/PELVIS CT WITHOUT CONTRAST SUGGESTED PANCRATITIS AND CHOLELITHIASIS. NECROTIZING PANCREATITIS COULD NOT BE RULE OUT. IT ALSO REVEALED LOW DENSITY FLUID AT THE PANCRATIC TAIL THAT MAY REPRESENT A PSEUDOCYST OR ABSCESS MEASURING 5.2X3.2CM. TODAY, HE IS ALERT AND ORIENTED, LYING IN BED ON MORNING ROUNDS. HE REMAINS IN THE INTENSIVE CARE UNIT ON A DOPAMINE DRIP TODAY. STAFF REPORTS THAT BLOOD PRESSURE FALLS WHEN THEY TRY TO WEAN HIM OFF OF THE DRIP. HE CONTINUES WITH COMPLAINTS OF ABDOMINAL PAIN AND WEAKNESS. ON EXAMINATION, HEART IS REGULAR IN RATE AND RHYTHM. BILATERAL LUNGS ARE NOTED WITH DIMINISHED LUNG SOUNDS THROUGHOUT. ABDOMEN IS ROUND, SOFT, AND NOTED WITH DIFFUSE TENDERNESS TO PALPATION. NORMAL BOWEL SOUNDS ARE NOTED IN ALL QUADRANTS. HIS VITALS THIS MORNING ARE: 97.8-88-25-97%-142/69. LABS WERE OBTAINED. ABNORMAL LAB VALUES INCLUDE THE FOLLOWING: WBC INCREASED FROM 16.8 TO 31.1, RBC 3.20, HGB 9.6, HCT 28.7, BUN 32, CREATININE 2.05, GLUCOSE 177, CALCIUM 7.9, AST 44, ALK PHOS 145, ALBUMIN 2.0, GLOBULIN 4.6. CEA AND CA19-9 LEVELS ARE PENDING. BLOOD CULTURES AND COVID-19 ARE ALSO PENDING. A CHEST XRAY WAS OBTAINED TODAY AND REVEALED: NO SIGNIFICANT ABNORMALITY IDENTIFIED. HE IS CURRENTLY RECEIVING VANCOMYCIN 1G IV DAILY, ZOSYN 3.375G IV TID, NS AT 150ML/HR, LOVENOX 30MG SC D AILY, AND IS ON A DOPAMINE DRIP. TODAY, WE WILL ADD CIPRO 400MG IV Q12H. OTHERWISE, WE WILL CONTINUE WITH CURRENT PLAN OF CARE. WE WILL FOLLOW UP WITH AM LABS AND CONTINUE TO MONITOR. - Past Medical Family Social History Past Med/Fam/Surg Hx: No changes since H&P Allergies: Allergies niacin Allergy (Verified 09/20/19 10:09) - Review of Systems ROS: No change since H&P - Vital Signs and I&O's Vital Signs: Temperature 98.9 F Pulse Rate [Left Radial] 104 Pulse Rate 91 Respiratory Rate 20 Blood Pressure [Right Arm] 89/41 Blood Pressure [Left Arm] 128/61 Blood Pressure [Standing] 89/50 Blood Pressure [Sitting] 110/61 Blood Pressure [Lying] 109/52 Blood Pressure 145/65 O2 Sat by Pulse Oximetry 98 Intake and Output: Intake & Output 09/19/19 09/20/19 09/21/19 09/22/19 11:59 11:59 11:59 11:59 Intake Total 5475 / 5475 4802 / 4802 Output Total 1900 / 1900 Balance 5475 / 5475 2902 / 2902 - Physical Exam Oriented: Normal Eyes: Normal Nose: Normal Throat: Normal Respiratory: Generalized, Diminished Cardiovascular: Other (still on small dose of Dopamin ) : Normal Auscultation: Bowel Sounds: Decreased Palpation: Normal Tenderness: Diffuse (diffuse tenderness . no rebound ) Skin: Normal Musculoskeletal: Normal Psychiatric: Normal Mood Description: Calm Affect: Normal Speech Pattern: Clear, Appropriate - Laboratory and Diagnostics Result Diagrams: 09/22/19 06:30 09/22/19 06:30 Labs: 09/20/19 13:15 Blood Blood Culture - Preliminary 09/20/19 12:25 Blood Blood Culture - Preliminary Laboratory WBC 20.8 X10^3/uL (3.6-10.0) H D 09/22/19 06:30 RBC 3.01 X10^6/uL (4.7-6.0) L 09/22/19 06:30 Hgb 9.1 g/dL (13.5-18.0) L 09/22/19 06:30 Hct 27.0 % (42.0-54.0) L 09/22/19 06:30 MCV 89.5 fL (80.0-100.0) 09/22/19 06:30 MCH 30.3 pg (27.0-34.0) 09/22/19 06:30 MCHC 33.9 g/dL (33.0-35.0) 09/22/19 06:30 RDW 13.8 % (11.6-16.5) 09/22/19 06:30 Plt Count 291 X10^3/uL (150.0-450.0) 09/22/19 06:30 Plt Count Comment Increased (ADEQUATE) 09/21/19 05:42 MPV 7.8 fL (7.4-11.0) 09/22/19 06:30 Neut % (Auto) 81.8 % (42.0-75.0) H 09/22/19 06:30 Lymph % (Auto) 7.7 % (21.0-51.0) L 09/22/19 06:30 [place] % (Auto) 8.4 % (0.0-13.0) 09/22/19 06:30 Eos % (Auto) 1.7 % (0.9-2.9) 09/22/19 06:30 Baso % (Auto) 0.4 % (0.2-1.0) 09/22/19 06:30 Neut # (Auto) 17.0 x10^3/uL (2.2-4.8) H 09/22/19 06:30 Lymph # (Auto) 1.6 X10^3/uL (1.3-2.9) 09/22/19 06:30 [place] # (Auto) 1.7 x10^3/uL (0.3-0.8) H 09/22/19 06:30 Eos # (Auto) 0.4 x10^3/uL (0.0-0.2) H 09/22/19 06:30 Baso # (Auto) 0.1 X10^3/uL (0.0-0.1) 09/22/19 06:30 Absolute Nucleated RBC 0.0 /100WBC 09/22/19 06:30 Total Counted 100 09/21/19 05:42 Neutrophils % (Manual) 86 % (39-76) H 09/21/19 05:42 Band Neutrophils % 6 % (0-10) 09/21/19 05:42 Lymphocytes % (Manual) 6 % (13-43) L 09/21/19 05:42 Monocytes % (Manual) 2 % (4-9) L 09/21/19 05:42 Plt Morphology Comment Normal (NORMAL) 09/21/19 05:42 RBC Morphology Normal (NORMAL) 09/21/19 05:42 ESR 115 MM/HOUR (0-15) H 09/22/19 06:30 Sample Site Lrad 09/21/19 10:12 ABG pH 7.410 (7.35-7.45) 09/21/19 10:12 ABG pCO2 35.0 mmHg (35.0-45.0) 09/21/19 10:12 ABG pO2 101.0 mmHg (80.0-100.0) H 09/21/19 10:12 ABG HCO3 22.2 mmol/L (22-26) 09/21/19 10:12 ABG O2 Saturation 98.0 % (90-100) 09/21/19 10:12 ABG Base Excess -1.9 mmol/L (-2.0-2.0) 09/21/19 10:12 Damian Test Pos 09/21/19 10:12 A-a Gradient 55.0 mmHg 09/21/19 10:12 FiO2 28.0 09/21/19 10:12 Blood Gas Comments Pt katlyn well elj cdn 09/21/19 10:12 Sodium 140 mmol/L (136-145) 09/22/19 06:30 Corrected Sodium 140 mmol/L (136-145) 09/22/19 06:30 Potassium 4.0 mmol/L (3.5-5.1) 09/22/19 06:30 Chloride 108 mmol/L (98-107) H 09/22/19 06:30 Carbon Dioxide 21.5 mmol/L (21-32) 09/22/19 06:30 BUN 26 mg/dL (7-18) H 09/22/19 06:30 Creatinine 1.66 mg/dL (0.70-1.30) H 09/22/19 06:30 Est GFR (MDRD) Af Amer 51 (>60) L 09/22/19 06:30 Est GFR (MDRD) Non-Af 42 (>60) L 09/22/19 06:30 Glucose 114 mg/dL (65-99) H 09/22/19 06:30 Lactic Acid 1.5 mmol/L (0.4-2.0) 09/20/19 12:25 Calcium 7.8 mg/dL (8.5-10.1) L 09/22/19 06:30 Corrected Calcium 9.6 mg/dL (8.5-10.1) 09/22/19 06:30 Iron 19 ug/dL (50-175) L 09/20/19 10:05 Transferrin 102 mg/dL (202-364) L 09/20/19 10:05 Ferritin 1349 ng/mL (26-388) H 09/20/19 10:05 Total Bilirubin 0.20 mg/dL (0.2-1.0) 09/22/19 06:30 AST 37 Units/L (15-37) 09/22/19 06:30 ALT 38 Units/L (12-78) 09/22/19 06:30 Alkaline Phosphatase 158 Units/L (46-116) H 09/22/19 06:30 C-Reactive Protein 158.40 mg/L (0-3.0) H 09/22/19 06:30 Total Protein 6.1 g/dL (6.4-8.2) L 09/22/19 06:30 Albumin 1.8 g/dL (3.4-5.0) L 09/22/19 06:30 Globulin 4.3 g/dL (2.5-4.5) 09/22/19 06:30 Albumin/Globulin Ratio 0.4 Ratio (1.1-2.1) L 09/22/19 06:30 Amylase 32 Units/L (25-115) 09/22/19 06:30 Lipase 289 Units/L (73-393) 09/22/19 06:30 Vitamin B12 955 pg/mL (193-986) 09/20/19 10:05 Folate 19.2 ng/mL (>8.6) 09/20/19 10:05 Specimen Type Catherized urine 09/21/19 10:38 Urine Color Yellow (YELLOW) 09/21/19 10:38 Urine Appearance Clear (CLEAR) 09/21/19 10:38 Urine pH 5.0 (5.0 - 8.0) 09/21/19 10:38 Ur Specific [place] 1.020 (1.000-1.030) 09/21/19 10:38 Urine Protein 2+ (NEGATIVE) 09/21/19 10:38 Urine Glucose (UA) 1+ (NEGATIVE) 09/21/19 10:38 Urine Ketones Negative (NEGATIVE) 09/21/19 10:38 Urine Occult Blood 3+ (NEGATIVE) 09/21/19 10:38 Urine Nitrite Negative (NEGATIVE) 09/21/19 10:38 Urine Bilirubin Negative (NEGATIVE) 09/21/19 10:38 Urine Urobilinogen Normal (NORMAL) 09/21/19 10:38 Ur Leukocyte Esterase Negative (NEGATIVE) 09/21/19 10:38 Urine RBC 3-5 /HPF (0-3) A 09/21/19 10:38 Urine WBC 0-2 /HPF (0-5) 09/21/19 10:38 Ur Squamous Epith Cells Rare /HPF (NEGATIVE) 09/21/19 10:38 Ur Transition Epith Cell Few /HPF (NEGATIVE) 09/21/19 10:38 Amorphous Sediment 2+ /HPF (NEGATIVE) 09/21/19 10:38 Urine Bacteria Negative /HPF (NEGATIVE) 09/21/19 10:38 Granular Casts Few /LPF (NEGATIVE) 09/21/19 10:38 Urine Mucus Few /HPF (NEGATIVE) 09/21/19 10:38 Ur Culture Indicated? No/not indicated 09/21/19 10:38 Influenza Type A Ag Negative-presumptive (NEGATIVE) 09/20/19 10:15 Influenza Type B Ag Negative-presumptive (NEGATIVE) 09/20/19 10:15 Mycoplasma pneumon IgG Negative (NEGATIVE) 09/20/19 10:05 S. pyogenes (TEM-PCR) Not detected (NOT DETECT) 09/20/19 10:15 - Plan (1) Sepsis associated hypotension Status: Acute Plan: VANCOMYCIN 1G IV DAILY, ZOSYN 3.375G IV TID, CIPRO 400MG IV Q12H, NS AT 150ML/HR, LOVENOX 30MG SC DAILY, AND IS ON A DOPAMINE DRIP (2) Acute pancreatitis Status: Acute Qualifiers: Pancreatitis type: unspecified pancreatitis type Acute pancreatitis comp lication: unspecified Qualified Code(s): K85.90 - Acute pancreatitis without necrosis or infection, unspecified (3) FARRAH (acute kidney injury) Status: Acute (4) Suspected COVID-19 virus infection Status: Acute (5) Anemia Status: Acute Qualifiers: Anemia type: iron deficiency Iron deficiency anemia type: unspecified iron deficiency Qualified Code(s): D50.9 - Iron deficiency anemia, unspecified Plan: CONTINUE TO MONITOR
--- NOTE | 2019-09-22 10:36 | DR.PROGNOT ---
Hospital Progress Notes - Progress Note for Day of: Progress Note Date: 09/22/19 - Chief Complaint Chief Complaint: feeling much better today. no chills or fever last night . off Dopamin . mild abdominal pain and all lab work is improving . Amylase 32. lipase 289. WBC 20.8. CRP 158 - Past Medical Family Social History Past Med/Fam/Surg Hx: No changes since H&P Allergies: Allergies niacin Allergy (Verified 09/20/19 10:09) - Review Of Systems ROS: No change since H&P - Vital Signs Vital Signs: Temperature 98.9 F Pulse Rate [Left Radial] 104 Pulse Rate 91 Respiratory Rate 20 Blood Pressure [Right Arm] 89/41 Blood Pressure [Left Arm] 128/61 Blood Pressure [Standing] 89/50 Blood Pressure [Sitting] 110/61 Blood Pressure [Lying] 109/52 Blood Pressure 145/65 O2 Sat by Pulse Oximetry 98 - Physical Exam Oriented: Normal Eyes: Normal Nose: Normal Throat: Normal Respiratory: Generalized, Diminished Cardiovascular: Other (still on small dose of Dopamin ) : Normal GI:Auscultation: Decreased GI:Palpation: Normal GI: Tenderness: Diffuse (diffuse tenderness . no rebound ) Skin: Normal Musculoskeletal: Normal Psychiatric: Normal Mood Description: Calm Affect: Normal Speech Pattern: Clear, Appropriate - Laboratory and Diagnostics Result Diagrams: 09/22/19 06:30 09/22/19 06:30 Labs: 09/20/19 13:15 Blood Blood Culture - Preliminary 09/20/19 12:25 Blood Blood Culture - Preliminary Laboratory WBC 20.8 X10^3/uL (3.6-10.0) H D 09/22/19 06:30 RBC 3.01 X10^6/uL (4.7-6.0) L 09/22/19 06:30 Hgb 9.1 g/dL (13.5-18.0) L 09/22/19 06:30 Hct 27.0 % (42.0-54.0) L 09/22/19 06:30 MCV 89.5 fL (80.0-100.0) 09/22/19 06:30 MCH 30.3 pg (27.0-34.0) 09/22/19 06:30 MCHC 33.9 g/dL (33.0-35.0) 09/22/19 06:30 RDW 13.8 % (11.6-16.5) 09/22/19 06:30 Plt Count 291 X10^3/uL (150.0-450.0) 09/22/19 06:30 Plt Count Comment Increased (ADEQUATE) 09/21/19 05:42 MPV 7.8 fL (7.4-11.0) 09/22/19 06:30 Neut % (Auto) 81.8 % (42.0-75.0) H 09/22/19 06:30 Lymph % (Auto) 7.7 % (21.0-51.0) L 09/22/19 06:30 [place] % (Auto) 8.4 % (0.0-13.0) 09/22/19 06:30 Eos % (Auto) 1.7 % (0.9-2.9) 09/22/19 06:30 Baso % (Auto) 0.4 % (0.2-1.0) 09/22/19 06:30 Neut # (Auto) 17.0 x10^3/uL (2.2-4.8) H 09/22/19 06:30 Lymph # (Auto) 1.6 X10^3/uL (1.3-2.9) 09/22/19 06:30 [place] # (Auto) 1.7 x10^3/uL (0.3-0.8) H 09/22/19 06:30 Eos # (Auto) 0.4 x10^3/uL (0.0-0.2) H 09/22/19 06:30 Baso # (Auto) 0.1 X10^3/uL (0.0-0.1) 09/22/19 06:30 Absolute Nucleated RBC 0.0 /100WBC 09/22/19 06:30 Total Counted 100 09/21/19 05:42 Neutrophils % (Manual) 86 % (39-76) H 09/21/19 05:42 Band Neutrophils % 6 % (0-10) 09/21/19 05:42 Lymphocytes % (Manual) 6 % (13-43) L 09/21/19 05:42 Monocytes % (Manual) 2 % (4-9) L 09/21/19 05:42 Plt Morphology Comment Normal (NORMAL) 09/21/19 05:42 RBC Morphology Normal (NORMAL) 09/21/19 05:42 ESR 115 MM/HOUR (0-15) H 09/22/19 06:30 Sample Site Lrad 09/21/19 10:12 ABG pH 7.410 (7.35-7.45) 09/21/19 10:12 ABG pCO2 35.0 mmHg (35.0-45.0) 09/21/19 10:12 ABG pO2 101.0 mmHg (80.0-100.0) H 09/21/19 10:12 ABG HCO3 22.2 mmol/L (22-26) 09/21/19 10:12 ABG O2 Saturation 98.0 % (90-100) 09/21/19 10:12 ABG Base Excess -1.9 mmol/L (-2.0-2.0) 09/21/19 10:12 Damian Test Pos 09/21/19 10:12 A-a Gradient 55.0 mmHg 09/21/19 10:12 FiO2 28.0 09/21/19 10:12 Blood Gas Comments Pt katlyn well elj cdn 09/21/19 10:12 Sodium 140 mmol/L (136-145) 09/22/19 06:30 Corrected Sodium 140 mmol/L (136-145) 09/22/19 06:30 Potassium 4.0 mmol/L (3.5-5.1) 09/22/19 06:30 Chloride 108 mmol/L (98-107) H 09/22/19 06:30 Carbon Dioxide 21.5 mmol/L (21-32) 09/22/19 06:30 BUN 26 mg/dL (7-18) H 09/22/19 06:30 Creatinine 1.66 mg/dL (0.70-1.30) H 09/22/19 06:30 Est GFR (MDRD) Af Amer 51 (>60) L 09/22/19 06:30 Est GFR (MDRD) Non-Af 42 (>60) L 09/22/19 06:30 Glucose 114 mg/dL (65-99) H 09/22/19 06:30 Lactic Acid 1.5 mmol/L (0.4-2.0) 09/20/19 12:25 Calcium 7.8 mg/dL (8.5-10.1) L 09/22/19 06:30 Corrected Calcium 9.6 mg/dL (8.5-10.1) 09/22/19 06:30 Iron 19 ug/dL (50-175) L 09/20/19 10:05 Transferrin 102 mg/dL (202-364) L 09/20/19 10:05 Ferritin 1349 ng/mL (26-388) H 09/20/19 10:05 Total Bilirubin 0.20 mg/dL (0.2-1.0) 09/22/19 06:30 AST 37 Units/L (15-37) 09/22/19 06:30 ALT 38 Units/L (12-78) 09/22/19 06:30 Alkaline Phosphatase 158 Units/L (46-116) H 09/22/19 06:30 C-Reactive Protein 158.40 mg/L (0-3.0) H 09/22/19 06:30 Total Protein 6.1 g/dL (6.4-8.2) L 09/22/19 06:30 Albumin 1.8 g/dL (3.4-5.0) L 09/22/19 06:30 Globulin 4.3 g/dL (2.5-4.5) 09/22/19 06:30 Albumin/Globulin Ratio 0.4 Ratio (1.1-2.1) L 09/22/19 06:30 Amylase 32 Units/L (25-115) 09/22/19 06:30 Lipase 289 Units/L (73-393) 09/22/19 06:30 Vitamin B12 955 pg/mL (193-986) 09/20/19 10:05 Folate 19.2 ng/mL (>8.6) 09/20/19 10:05 Specimen Type Catherized urine 09/21/19 10:38 Urine Color Yellow (YELLOW) 09/21/19 10:38 Urine Appearance Clear (CLEAR) 09/21/19 10:38 Urine pH 5.0 (5.0 - 8.0) 09/21/19 10:38 Ur Specific [place] 1.020 (1.000-1.030) 09/21/19 10:38 Urine Protein 2+ (NEGATIVE) 09/21/19 10:38 Urine Glucose (UA) 1+ (NEGATIVE) 09/21/19 10:38 Urine Ketones Negative (NEGATIVE) 09/21/19 10:38 Urine Occult Blood 3+ (NEGATIVE) 09/21/19 10:38 Urine Nitrite Negative (NEGATIVE) 09/21/19 10:38 Urine Bilirubin Negative (NEGATIVE) 09/21/19 10:38 Urine Urobilinogen Normal (NORMAL) 09/21/19 10:38 Ur Leukocyte Esterase Negative (NEGATIVE) 09/21/19 10:38 Urine RBC 3-5 /HPF (0-3) A 09/21/19 10:38 Urine WBC 0-2 /HPF (0-5) 09/21/19 10:38 Ur Squamous Epith Cells Rare /HPF (NEGATIVE) 09/21/19 10:38 Ur Transition Epith Cell Few /HPF (NEGATIVE) 09/21/19 10:38 Amorphous Sediment 2+ /HPF (NEGATIVE) 09/21/19 10:38 Urine Bacteria Negative /HPF (NEGATIVE) 09/21/19 10:38 Granular Casts Few /LPF (NEGATIVE) 09/21/19 10:38 Urine Mucus Few /HPF (NEGATIVE) 09/21/19 10:38 Ur Culture Indicated? No/not indicated 09/21/19 10:38 Influenza Type A Ag Negative-presumptive (NEGATIVE) 09/20/19 10:15 Influenza Type B Ag Negative-presumptive (NEGATIVE) 09/20/19 10:15 Mycoplasma pneumon IgG Negative (NEGATIVE) 09/20/19 10:05 S. pyogenes (TEM-PCR) Not detected (NOT DETECT) 09/20/19 10:15 - Assessment and Plan 1: 1-subsiding acute pancreatitis possible distal pacreatic abscess . sepsis secondary to 1. gallstones . anemia and dehydration. same IVF and ATB . DVT prophylaxis and close monitoring - Problem Patient Problems: Patient Problems Anemia (Acute) D64.9 FARRAH (acute kidney injury) (Acute) N17.9 Suspected COVID-19 virus infection (Acute) Z20.828 Acute pancreatitis (Acute) K85.90 Sepsis associated hypotension (Acute) A41.9, I95.9
[2019-09-22] MEDS: ALBUMIN HUMAN 25%- 100 ML 100 ML IV SCH (11:25)
[2019-09-22] MEDS: VENTOLIN or PROAIR HFA IN PRN ×2 (13:06→17:49)
[2019-09-22] MEDS: NS 1000 ML 1,000 ML IV SCH (15:33)
--- NOTE | 2019-09-22 17:49 | PCM.PROG ---
Progress Note - Progress Note for Day of Date of Exam: 09/22/19 - Subjective Subjective: IS A 89 YEAR OLD PATIENT OF . HE WS ADMITTED ON 09/20/19 FOR SEPSIS. ABDOMEN/PELVIS CT WITHOUT CONTRAST SUGGESTED PANCRATITIS AND CHOLELITHIASIS. NECROTIZING PANCREATITIS COULD NOT BE RULE OUT. IT ALSO REVEALED LOW DENSITY FLUID AT THE PANCRATIC TAIL THAT MAY REPRESENT A PSEUDOCYST OR ABSCESS MEASURING 5.2X3.2CM. TODAY, HE IS ALERT AND ORIENTED, LYING IN BED ON MORNING ROUNDS. HE REMAINS IN THE INTENSIVE CARE UNIT ON A DOPAMINE DRIP TODAY. STAFF REPORTS THAT BLOOD PRESSURE FALLS WHEN THEY TRY TO WEAN HIM OFF OF THE DRIP. HE CONTINUES WITH COMPLAINTS OF ABDOMINAL PAIN AND WEAKNESS. ON EXAMINATION, HEART IS REGULAR IN RATE AND RHYTHM. BILATERAL LUNGS ARE NOTED WITH DIMINISHED LUNG SOUNDS THROUGHOUT. ABDOMEN IS ROUND, SOFT, AND NOTED WITH DIFFUSE TENDERNESS TO PALPATION. NORMAL BOWEL SOUNDS ARE NOTED IN ALL QUADRANTS. HIS VITALS THIS MORNING ARE: 97.8-88-25-97%-142/69. LABS WERE OBTAINED. ABNORMAL LAB VALUES INCLUDE THE FOLLOWING: WBC INCREASED FROM 16.8 TO 31.1, RBC 3.20, HGB 9.6, HCT 28.7, BUN 32, CREATININE 2.05, GLUCOSE 177, CALCIUM 7.9, AST 44, ALK PHOS 145, ALBUMIN 2.0, GLOBULIN 4.6. CEA AND CA19-9 LEVELS ARE PENDING. BLOOD CULTURES PENDING. COVID-19 NEGATIVE. A CHEST XRAY WAS OBTAINED TODAY AND REVEALED: NO SIGNIFICANT ABNORMALITY IDENTIFIED. HE IS CURRENTLY RECEIVING VANCOMYCIN 1G IV DAILY, ZOSYN 3.375G IV TID, NS AT 150ML/HR, LOVENOX 30MG SC DAILY, AND IS ON A DOPAMINE DRIP. TODAY, WE WILL ADD CIPRO 400MG IV Q12H. OTHERWISE, WE WILL CONTINUE WITH CURRENT PLAN OF CARE. WE WILL FOLLOW UP WITH AM LABS AND CONTINUE TO MONITOR. - Past Medical Family Social History Past Med/Fam/Surg Hx: No changes since H&P Allergies: Allergies niacin Allergy (Verified 09/20/19 10:09) - Review of Systems ROS: No change since H&P - Vital Signs and I&O's Vital Signs: Temperature 98.5 F Pulse Rate [Left Radial] 104 Pulse Rate 92 Respiratory Rate 20 Blood Pressure [Right Arm] 89/41 Blood Pressure [Left Arm] 128/61 Blood Pressure [Standing] 89/50 Blood Pressure [Sitting] 110/61 Blood Pressure [Lying] 109/52 Blood Pressure 146/68 O2 Sat by Pulse Oximetry 98 Intake and Output: Intake & Output 09/20/19 09/21/19 09/22/19 09/23/19 11:59 11:59 11:59 11:59 Intake Total 5475 / 5475 4802 / 4802 Output Total 1900 / 1900 Balance 5475 / 5475 2902 / 2902 - Physical Exam Oriented: Normal Eyes: Normal Nose: Normal Throat: Normal Respiratory: Generalized, Diminished Cardiovascular: Other (still on small dose of Dopamin ) : Normal Auscultation: Bowel Sounds: Decreased Palpation: Normal Tenderness: Diffuse (diffuse tenderness . no rebound ) Skin: Normal Musculoskeletal: Normal Psychiatric: Normal Mood Description: Calm Affect: Normal Speech Pattern: Clear, Appropriate - Laboratory and Diagnostics Result Diagrams: 09/22/19 06:30 09/22/19 06:30 Labs: 09/20/19 13:15 Blood Blood Culture - Preliminary 09/20/19 12:25 Blood Blood Culture - Preliminary Laboratory WBC 20.8 X10^3/uL (3.6-10.0) H D 09/22/19 06:30 RBC 3.01 X10^6/uL (4.7-6.0) L 09/22/19 06:30 Hgb 9.1 g/dL (13.5-18.0) L 09/22/19 06:30 Hct 27.0 % (42.0-54.0) L 09/22/19 06:30 MCV 89.5 fL (80.0-100.0) 09/22/19 06:30 MCH 30.3 pg (27.0-34.0) 09/22/19 06:30 MCHC 33.9 g/dL (33.0-35.0) 09/22/19 06:30 RDW 13.8 % (11.6-16.5) 09/22/19 06:30 Plt Count 291 X10^3/uL (150.0-450.0) 09/22/19 06:30 Plt Count Comment Increased (ADEQUATE) 09/21/19 05:42 MPV 7.8 fL (7.4-11.0) 09/22/19 06:30 Neut % (Auto) 81.8 % (42.0-75.0) H 09/22/19 06:30 Lymph % (Auto) 7.7 % (21.0-51.0) L 09/22/19 06:30 [place] % (Auto) 8.4 % (0.0-13.0) 09/22/19 06:30 Eos % (Auto) 1.7 % (0.9-2.9) 09/22/19 06:30 Baso % (Auto) 0.4 % (0.2-1.0) 09/22/19 06:30 Neut # (Auto) 17.0 x10^3/uL (2.2-4.8) H 09/22/19 06:30 Lymph # (Auto) 1.6 X10^3/uL (1.3-2.9) 09/22/19 06:30 [place] # (Auto) 1.7 x10^3/uL (0.3-0.8) H 09/22/19 06:30 Eos # (Auto) 0.4 x10^3/uL (0.0-0.2) H 09/22/19 06:30 Baso # (Auto) 0.1 X10^3/uL (0.0-0.1) 09/22/19 06:30 Absolute Nucleated RBC 0.0 /100WBC 09/22/19 06:30 Total Counted 100 09/21/19 05:42 Neutrophils % (Manual) 86 % (39-76) H 09/21/19 05:42 Band Neutrophils % 6 % (0-10) 09/21/19 05:42 Lymphocytes % (Manual) 6 % (13-43) L 09/21/19 05:42 Monocytes % (Manual) 2 % (4-9) L 09/21/19 05:42 Plt Morphology Comment Normal (NORMAL) 09/21/19 05:42 RBC Morphology Normal (NORMAL) 09/21/19 05:42 ESR 115 MM/HOUR (0-15) H 09/22/19 06:30 Sample Site Lrad 09/21/19 10:12 ABG pH 7.410 (7.35-7.45) 09/21/19 10:12 ABG pCO2 35.0 mmHg (35.0-45.0) 09/21/19 10:12 ABG pO2 101.0 mmHg (80.0-100.0) H 09/21/19 10:12 ABG HCO3 22.2 mmol/L (22-26) 09/21/19 10:12 ABG O2 Saturation 98.0 % (90-100) 09/21/19 10:12 ABG Base Excess -1.9 mmol/L (-2.0-2.0) 09/21/19 10:12 Damian Test Pos 09/21/19 10:12 A-a Gradient 55.0 mmHg 09/21/19 10:12 FiO2 28.0 09/21/19 10:12 Blood Gas Comments Pt katlyn well elj cdn 09/21/19 10:12 Sodium 140 mmol/L (136-145) 09/22/19 06:30 Corrected Sodium 140 mmol/L (136-145) 09/22/19 06:30 Potassium 4.0 mmol/L (3.5-5.1) 09/22/19 06:30 Chloride 108 mmol/L (98-107) H 09/22/19 06:30 Carbon Dioxide 21.5 mmol/L (21-32) 09/22/19 06:30 BUN 26 mg/dL (7-18) H 09/22/19 06:30 Creatinine 1.66 mg/dL (0.70-1.30) H 09/22/19 06:30 Est GFR (MDRD) Af Amer 51 (>60) L 09/22/19 06:30 Est GFR (MDRD) Non-Af 42 (>60) L 09/22/19 06:30 Glucose 114 mg/dL (65-99) H 09/22/19 06:30 Lactic Acid 1.5 mmol/L (0.4-2.0) 09/20/19 12:25 Calcium 7.8 mg/dL (8.5-10.1) L 09/22/19 06:30 Corrected Calcium 9.6 mg/dL (8.5-10.1) 09/22/19 06:30 Iron 19 ug/dL (50-175) L 09/20/19 10:05 Transferrin 102 mg/dL (202-364) L 09/20/19 10:05 Ferritin 1349 ng/mL (26-388) H 09/20/19 10:05 Total Bilirubin 0.20 mg/dL (0.2-1.0) 09/22/19 06:30 AST 37 Units/L (15-37) 09/22/19 06:30 ALT 38 Units/L (12-78) 09/22/19 06:30 Alkaline Phosphatase 158 Units/L (46-116) H 09/22/19 06:30 C-Reactive Protein 158.40 mg/L (0-3.0) H 09/22/19 06:30 Total Protein 6.1 g/dL (6.4-8.2) L 09/22/19 06:30 Albumin 1.8 g/dL (3.4-5.0) L 09/22/19 06:30 Globulin 4.3 g/dL (2.5-4.5) 09/22/19 06:30 Albumin/Globulin Ratio 0.4 Ratio (1.1-2.1) L 09/22/19 06:30 Amylase 32 Units/L (25-115) 09/22/19 06:30 Lipase 289 Units/L (73-393) 09/22/19 06:30 Vitamin B12 955 pg/mL (193-986) 09/20/19 10:05 Folate 19.2 ng/mL (>8.6) 09/20/19 10:05 Specimen Type Catherized urine 09/21/19 10:38 Urine Color Yellow (YELLOW) 09/21/19 10:38 Urine Appearance Clear (CLEAR) 09/21/19 10:38 Urine pH 5.0 (5.0 - 8.0) 09/21/19 10:38 Ur Specific [place] 1.020 (1.000-1.030) 09/21/19 10:38 Urine Protein 2+ (NEGATIVE) 09/21/19 10:38 Urine Glucose (UA) 1+ (NEGATIVE) 09/21/19 10:38 Urine Ketones Negative (NEGATIVE) 09/21/19 10:38 Urine Occult Blood 3+ (NEGATIVE) 09/21/19 10:38 Urine Nitrite Negative (NEGATIVE) 09/21/19 10:38 Urine Bilirubin Negative (NEGATIVE) 09/21/19 10:38 Urine Urobilinogen Normal (NORMAL) 09/21/19 10:38 Ur Leukocyte Esterase Negative (NEGATIVE) 09/21/19 10:38 Urine RBC 3-5 /HPF (0-3) A 09/21/19 10:38 Urine WBC 0-2 /HPF (0-5) 09/21/19 10:38 Ur Squamous Epith Cells Rare /HPF (NEGATIVE) 09/21/19 10:38 Ur Transition Epith Cell Few /HPF (NEGATIVE) 09/21/19 10:38 Amorphous Sediment 2+ /HPF (NEGATIVE) 09/21/19 10:38 Urine Bacteria Negative /HPF (NEGATIVE) 09/21/19 10:38 Granular Casts Few /LPF (NEGATIVE) 09/21/19 10:38 Urine Mucus Few /HPF (NEGATIVE) 09/21/19 10:38 Ur Culture Indicated? No/not indicated 09/21/19 10:38 Influenza Type A Ag Negative-presumptive (NEGATIVE) 09/20/19 10:15 Influenza Type B Ag Negative-presumptive (NEGATIVE) 09/20/19 10:15 Mycoplasma pneumon IgG Negative (NEGATIVE) 09/20/19 10:05 S. pyogenes (TEM-PCR) Not detected (NOT DETECT) 09/20/19 10:15 - Plan (1) Sepsis associated hypotension Status: Acute Plan: VANCOMYCIN 1G IV DAILY, ZOSYN 3.375G IV TID, CIPRO 400MG IV Q12H, NS AT 150ML/HR, LOVENOX 30MG SC DAILY, AND IS ON A DOPAMINE DRIP (2) Acute pancreatitis Status: Acute Qualifiers: Pancreatitis type: unspecified pancreatitis type Acute pancreatitis complic ation: unspecified Qualified Code(s): K85.90 - Acute pancreatitis without necrosis or infection, unspecified Plan: REPEAT ABDOMEN/PELVIS CT WITH CONTRAST IN AM, CONTINUE TO MONITOR (3) FARRAH (acute kidney injury) Status: Acute (4) Suspected COVID-19 virus infection Status: Acute (5) Anemia Status: Acute Qualifiers: Anemia type: iron deficiency Iron deficiency anemia type: unspecified iron deficiency Qualified Code(s): D50.9 - Iron deficiency anemia, unspecified Plan: CONTINUE TO MONITOR
[2019-09-22] MEDS: LIPITOR TAB 10 MG PO SCH (20:57)
[2019-09-22] MEDS: RESTORIL CAP 15 MG PO PRN (20:57)
[2019-09-23] MEDS: ZOSYN VIAL 3.375 GRAMS 3.375 G in NS 100 ML IV + SPIKE MINIBAG* 100 ML IV SCH ×3 (05:37→21:45)
[2019-09-23 06:16] LABS: BASOPHILS # (AUTO) 0.1 X10^3/uL (0.0-0.1); BASOPHILS % (AUTO) 0.5 % (0.2-1.0); EOSINOPHILS # (AUTO) 0.3 x10^3/uL (0.0-0.2); EOSINOPHILS % (AUTO) 1.7 % (0.9-2.9); HEMATOCRIT 23.7 % (42.0-54.0); HEMOGLOBIN 8.1 g/dL (13.5-18.0); LYMPHOCYTES # (AUTO) 1.8 X10^3/uL (1.3-2.9); LYMPHOCYTES % (AUTO) 11.6 % (21.0-51.0); MEAN CORPUSCULAR HEMOGLOBIN 30.7 pg (27.0-34.0); MEAN CORPUSCULAR HGB CONC 33.9 g/dL (33.0-35.0); MEAN CORPUSCULAR VOLUME 90.3 fL (80.0-100.0); MEAN PLATELET VOLUME 8.1 fL (7.4-11.0); MONOCYTES # (AUTO) 1.3 x10^3/uL (0.3-0.8); MONOCYTES % (AUTO) 8.3 % (0.0-13.0); NEUTROPHILS # (AUTO) 12.3 x10^3/uL (2.2-4.8); NEUTROPHILS % (AUTO) 77.9 % (42.0-75.0); PLATELET COUNT 247 X10^3/uL (150.0-450.0); RED BLOOD COUNT 2.63 X10^6/uL (4.7-6.0); RED CELL DISTRIBUTION WIDTH 13.6 % (11.6-16.5); WHITE BLOOD COUNT 15.7 X10^3/uL (3.6-10.0)
[2019-09-23 06:21] LABS: ALANINE AMINOTRANSFERASE 36 Units/L (12-78); ALBUMIN 2.1 g/dL (3.4-5.0); ALKALINE PHOSPHATASE 177 Units/L (46-116); AMYLASE 27 Units/L (25-115); ASPARTATE AMINO TRANSFERASE 30 Units/L (15-37); BLOOD UREA NITROGEN 18 mg/dL (7-18); CALCIUM 7.5 mg/dL (8.5-10.1); CARBON DIOXIDE 22.6 mmol/L (21-32); CHLORIDE 110 mmol/L (98-107); LIPASE 263 Units/L (73-393); SODIUM 143 mmol/L (136-145); TOTAL PROTEIN 5.8 g/dL (6.4-8.2); eGFR NON BLACK RACES 56 (>60)
[2019-09-23 07:14] LABS: ERYTHROCYTE SEDIMENTATION RATE 109 MM/HOUR (0-15)
[2019-09-23] MEDS ORDERED: PHARMACY COMMENT IV NR (08:30)
[2019-09-23] MEDS: CIPRO IV 400 MG PREMIX* 400 MG/200 ML IV.SOLN. IV SCH ×2 (08:46→21:44)
[2019-09-23] MEDS: LOVENOX INJ 30 MG SYR SC SCH (08:46)
[2019-09-23] MEDS: ALBUMIN HUMAN 25%- 100 ML 100 ML IV SCH (08:47)
[2019-09-23 09:22] LABS: CREATININE 1.38 mg/dL (0.70-1.30); VANCOMYCIN,TROUGH 11.3 ug/mL (15-20)
--- NOTE | 2019-09-23 11:09 | DR.PROGNOT ---
Hospital Progress Notes - Progress Note for Day of: Progress Note Date: 09/23/19 - Chief Complaint Chief Complaint: moderate SOB and mild whezing . no chills or fever last night . no abdominal pain , LFT , Amylase , Lipase are normal . WBC 15.7. afebrile - Past Medical Family Social History Past Med/Fam/Surg Hx: No changes since H&P Allergies: Allergies niacin Allergy (Verified 09/20/19 10:09) - Review Of Systems ROS: No change since H&P - Vital Signs Vital Signs: Temperature 97.8 F Pulse Rate [Left Radial] 104 Pulse Rate 75 Respiratory Rate 20 Blood Pressure [Right Arm] 89/41 Blood Pressure [Left Arm] 128/61 Blood Pressure [Standing] 89/50 Blood Pressure [Sitting] 110/61 Blood Pressure [Lying] 109/52 Blood Pressure 195/87 O2 Sat by Pulse Oximetry 98 - Physical Exam Oriented: Normal Eyes: Normal Nose: Normal Throat: Normal Respiratory: Generalized, Diminished Cardiovascular: Other (still on small dose of Dopamin ) : Normal GI:Auscultation: Decreased GI:Palpation: Normal GI: Tenderness: Diffuse (diffuse tenderness . no rebound ) Skin: Normal Musculoskeletal: Normal Psychiatric: Normal Mood Description: Calm Affect: Normal Speech Pattern: Clear, Appropriate - Laboratory and Diagnostics Result Diagrams: 09/23/19 05:20 09/23/19 08:58 Labs: 09/20/19 13:15 Blood Blood Culture - Preliminary 09/20/19 12:25 Blood Blood Culture - Preliminary Laboratory WBC 15.7 X10^3/uL (3.6-10.0) H 09/23/19 05:20 RBC 2.63 X10^6/uL (4.7-6.0) L 09/23/19 05:20 Hgb 8.1 g/dL (13.5-18.0) L 09/23/19 05:20 Hct 23.7 % (42.0-54.0) L 09/23/19 05:20 MCV 90.3 fL (80.0-100.0) 09/23/19 05:20 MCH 30.7 pg (27.0-34.0) 09/23/19 05:20 MCHC 33.9 g/dL (33.0-35.0) 09/23/19 05:20 RDW 13.6 % (11.6-16.5) 09/23/19 05:20 Plt Count 247 X10^3/uL (150.0-450.0) 09/23/19 05:20 Plt Count Comment Increased (ADEQUATE) 09/21/19 05:42 MPV 8.1 fL (7.4-11.0) 09/23/19 05:20 Neut % (Auto) 77.9 % (42.0-75.0) H 09/23/19 05:20 Lymph % (Auto) 11.6 % (21.0-51.0) L 09/23/19 05:20 [place] % (Auto) 8.3 % (0.0-13.0) 09/23/19 05:20 Eos % (Auto) 1.7 % (0.9-2.9) 09/23/19 05:20 Baso % (Auto) 0.5 % (0.2-1.0) 09/23/19 05:20 Neut # (Auto) 12.3 x10^3/uL (2.2-4.8) H 09/23/19 05:20 Lymph # (Auto) 1.8 X10^3/uL (1.3-2.9) 09/23/19 05:20 [place] # (Auto) 1.3 x10^3/uL (0.3-0.8) H 09/23/19 05:20 Eos # (Auto) 0.3 x10^3/uL (0.0-0.2) H 09/23/19 05:20 Baso # (Auto) 0.1 X10^3/uL (0.0-0.1) 09/23/19 05:20 Absolute Nucleated RBC 0.0 /100WBC 09/23/19 05:20 Total Counted 100 09/21/19 05:42 Neutrophils % (Manual) 86 % (39-76) H 09/21/19 05:42 Band Neutrophils % 6 % (0-10) 09/21/19 05:42 Lymphocytes % (Manual) 6 % (13-43) L 09/21/19 05:42 Monocytes % (Manual) 2 % (4-9) L 09/21/19 05:42 Plt Morphology Comment Normal (NORMAL) 09/21/19 05:42 RBC Morphology Normal (NORMAL) 09/21/19 05:42 ESR 109 MM/HOUR (0-15) H 09/23/19 05:20 Sample Site Lrad 09/21/19 10:12 ABG pH 7.410 (7.35-7.45) 09/21/19 10:12 ABG pCO2 35.0 mmHg (35.0-45.0) 09/21/19 10:12 ABG pO2 101.0 mmHg (80.0-100.0) H 09/21/19 10:12 ABG HCO3 22.2 mmol/L (22-26) 09/21/19 10:12 ABG O2 Saturation 98.0 % (90-100) 09/21/19 10:12 ABG Base Excess -1.9 mmol/L (-2.0-2.0) 09/21/19 10:12 Damian Test Pos 09/21/19 10:12 A-a Gradient 55.0 mmHg 09/21/19 10:12 FiO2 28.0 09/21/19 10:12 Blood Gas Comments Pt katlyn well elj cdn 09/21/19 10:12 Sodium 143 mmol/L (136-145) 09/23/19 05:20 Corrected Sodium TNP 09/23/19 05:20 Potassium 3.7 mmol/L (3.5-5.1) 09/23/19 05:20 Chloride 110 mmol/L (98-107) H 09/23/19 05:20 Carbon Dioxide 22.6 mmol/L (21-32) 09/23/19 05:20 BUN 18 mg/dL (7-18) 09/23/19 05:20 Creatinine 1.38 mg/dL (0.70-1.30) H 09/23/19 08:58 Est GFR (MDRD) Af Amer > 60 (>60) 09/23/19 05:20 Est GFR (MDRD) Non-Af 56 (>60) L 09/23/19 05:20 Glucose 86 mg/dL (65-99) 09/23/19 05:20 Lactic Acid 1.5 mmol/L (0.4-2.0) 09/20/19 12:25 Calcium 7.5 mg/dL (8.5-10.1) L 09/23/19 05:20 Corrected Calcium 9.0 mg/dL (8.5-10.1) 09/23/19 05:20 Iron 19 ug/dL (50-175) L 09/20/19 10:05 Transferrin 102 mg/dL (202-364) L 09/20/19 10:05 Ferritin 1349 ng/mL (26-388) H 09/20/19 10:05 Total Bilirubin 0.30 mg/dL (0.2-1.0) 09/23/19 05:20 AST 30 Units/L (15-37) 09/23/19 05:20 ALT 36 Units/L (12-78) 09/23/19 05:20 Alkaline Phosphatase 177 Units/L (46-116) H 09/23/19 05:20 C-Reactive Protein 121.30 mg/L (0-3.0) H 09/23/19 05:20 Total Protein 5.8 g/dL (6.4-8.2) L 09/23/19 05:20 Albumin 2.1 g/dL (3.4-5.0) L 09/23/19 05:20 Globulin 3.7 g/dL (2.5-4.5) 09/23/19 05:20 Albumin/Globulin Ratio 0.6 Ratio (1.1-2.1) L 09/23/19 05:20 Amylase 27 Units/L (25-115) 09/23/19 05:20 Lipase 263 Units/L (73-393) 09/23/19 05:20 Vitamin B12 955 pg/mL (193-986) 09/20/19 10:05 Folate 19.2 ng/mL (>8.6) 09/20/19 10:05 Specimen Type Catherized urine 09/21/19 10:38 Urine Color Yellow (YELLOW) 09/21/19 10:38 Urine Appearance Clear (CLEAR) 09/21/19 10:38 Urine pH 5.0 (5.0 - 8.0) 09/21/19 10:38 Ur Specific [place] 1.020 (1.000-1.030) 09/21/19 10:38 Urine Protein 2+ (NEGATIVE) 09/21/19 10:38 Urine Glucose (UA) 1+ (NEGATIVE) 09/21/19 10:38 Urine Ketones Negative (NEGATIVE) 09/21/19 10:38 Urine Occult Blood 3+ (NEGATIVE) 09/21/19 10:38 Urine Nitrite Negative (NEGATIVE) 09/21/19 10:38 Urine Bilirubin Negative (NEGATIVE) 09/21/19 10:38 Urine Urobilinogen Normal (NORMAL) 09/21/19 10:38 Ur Leukocyte Esterase Negative (NEGATIVE) 09/21/19 10:38 Urine RBC 3-5 /HPF (0-3) A 09/21/19 10:38 Urine WBC 0-2 /HPF (0-5) 09/21/19 10:38 Ur Squamous Epith Cells Rare /HPF (NEGATIVE) 09/21/19 10:38 Ur Transition Epith Cell Few /HPF (NEGATIVE) 09/21/19 10:38 Amorphous Sediment 2+ /HPF (NEGATIVE) 09/21/19 10:38 Urine Bacteria Negative /HPF (NEGATIVE) 09/21/19 10:38 Granular Casts Few /LPF (NEGATIVE) 09/21/19 10:38 Urine Mucus Few /HPF (NEGATIVE) 09/21/19 10:38 Ur Culture Indicated? No/not indicated 09/21/19 10:38 Vancomycin Trough 11.3 ug/mL (15-20) L 09/23/19 08:58 Influenza Type A Ag Negative-presumptive (NEGATIVE) 09/20/19 10:15 Influenza Type B Ag Negative-presumptive (NEGATIVE) 09/20/19 10:15 Mycoplasma pneumon IgG Negative (NEGATIVE) 09/20/19 10:05 S. pyogenes (TEM-PCR) Not detected (NOT DETECT) 09/20/19 10:15 - Assessment and Plan 1: 1-subsiding acute pancreatitis possible distal pacreatic abscess . sepsis secondary to 1. gallstones . anemia and dehydration. same IVF and ATB . DVT prophylaxis and close monitoring . for abdominal CT today . - Problem Patient Problems: Patient Problems Anemia (Acute) D64.9 FARRAH (acute kidney injury) (Acute) N17.9 Suspected COVID-19 virus infection (Acute) Z20.828 Acute pancreatitis (Acute) K85.90 Sepsis associated hypotension (Acute) A41.9, I95.9
[2019-09-23] MEDS: VANCOMYCIN HCL 1 G in D5W 250 ML IV 250 ML IV SCH ×2 (12:00→21:44)
--- NOTE | 2019-09-23 12:30 | CT ---
ABDOMEN/PELVIS WITH CONIndication: Abdominal pain, sepsis, pancreatitisTechnique: Helical CT images of the abdomen and pelvis were obtained with IV contrast. Reformatted images in the coronal and sagittal planes were also generated for review.Comparison: 09/20/2019Findings: Limited images of the lower chest demonstrate small bilateral pleural effusions and mild atelectasis of the bilateral lung bases. Degenerative changes throughout the spine and postsurgical changes of the lower lumbar spine noted. No acute osseous abnormality.The liver, adrenals and kidneys are unremarkable. There is cholelithiasis without CT evidence of acute cholecystitis. There is mild retroperitoneal stranding centered about the pancreas, which appears grossly unchanged when compared to prior exam and is compatible with persistent acute pancreatitis. There is a grossly stable multilobulated 5.2 cm peripherally enhancing collection arising from the pancreatic tail extending into the splenic hilum. There is diffuse smooth dilatation of the pancreatic duct and diffuse atrophy of the pancreas. The remainder of the pancreas otherwise enhances normally without current evidence of necrosis. There is a 2.1 cm periampullary duodenal diverticulum. No definite lesion within the pancreatic head is otherwise seen. The main portal vein, splenic vein and SMV remain patent.There is mild likely reactive thickening of the duodenal C loop. There is colonic diverticulosis without diverticulitis. The remainder of the GI tract is otherwise without obstruction or inflammation. The appendix is normal. There is moderate calcification of the abdominal aorta without aneurysm. The urinary bladder is collapsed around a Pope catheter, limiting evaluation. The prostate is not enlarged. No free air, significant free fluid or lymphadenopathy is identified.Impression:1. Persistent but stable findings of acute interstitial pancreatitis as above.2. Unchanged 5.2 cm fluid collection in the region of the pancreatic tail, which is favored to represent a pseudocyst, with or without superimposed infection. Correlate clinically.3. 2.1 cm periampullary duodenal diverticulum with mild diffuse dilatation of the main pancreatic duct. Associated obstruction is possible. No definite pancreatic head lesion is identified, although ERCP is recommended for further evaluation, when clinically possible.4. Colonic diverticulosis without diverticulitis, cholelithiasis, small bilateral pleural effusions and additional nonacute findings as above.Electronically signed by: KAYLI FUENTES (September 23, 2019 12:28:10)
[2019-09-23] MEDS: NS 1000 ML 1,000 ML IV SCH ×2 (14:08)
[2019-09-23] MEDS: PREVACID PO SCH ×2 (14:08→21:43)
[2019-09-23] MEDS: VENTOLIN or PROAIR HFA IN PRN ×2 (16:40→21:05)
--- NOTE | 2019-09-23 20:54 | PCM.PROG ---
Progress Note - Progress Note for Day of Date of Exam: 09/23/19 - Subjective Subjective: IS A 89 YEAR OLD PATIENT OF . HE WS ADMITTED ON 09/20/19 FOR SEPSIS. ABDOMEN/PELVIS CT WITHOUT CONTRAST SUGGESTED PANCRATITIS AND CHOLELITHIASIS. NECROTIZING PANCREATITIS COULD NOT BE RULE OUT. IT ALSO REVEALED LOW DENSITY FLUID AT THE PANCRATIC TAIL THAT MAY REPRESENT A PSEUDOCYST OR ABSCESS MEASURING 5.2X3.2CM. TODAY, HE IS ALERT AND ORIENTED, LYING IN BED ON MORNING ROUNDS. DOPAMINE DRIP WAS DISCONTINUED THROUGHOUT THE NIGHT. HE CONTINUES WITH COMPLAINTS OF ABDOMINAL PAIN AND WEAKNESS, BUT REPORTS IMPROVEMENT IN SYMPTOMS SINCE YESTERDAY. ON EXAMINATION, HEART IS REGULAR IN RATE AND RHYTHM. BILATERAL LUNGS ARE NOTED WITH DIMINISHED LUNG SOUNDS THROUGHOUT. ABDOMEN IS ROUND, SOFT, AND NOTED WITH DIFFUSE TENDERNESS TO PALPATION. NORMAL BOWEL SOUNDS ARE NOTED IN ALL QUADRANTS. HIS VITALS THIS MORNING ARE: 98.1-71-20-100%-181/87. LABS WERE OBTAINED. ABNORMAL LAB VALUES INCLUDE THE FOLLOWING: WBC 15.7, RBC 2.63, HGB 8.1, HCT 23.7, CHLORIDE 110, CALCIUM 7.5, CREATININE 1.38, ALK PHOS 177, CRP 121.30, TOTAL PROTEIN 5.8, ALBUMIN 2.1. CEA AND CA19-9 LEVELS ARE PENDING. BLOOD CULTURES PENDING. COVID-19 NEGATIVE. HE IS CURRENTLY RECEIVING VANCOMYCIN 1G IV DAILY, ZOSYN 3.375G IV TID, CIPRO 400MG IV Q12H, NS AT 150ML/HR, LOVENOX 30MG SC DAILY. TODAY, WE WILL REPEAT AN ABDOMEN/PELVIS CT WITH CONTRAST. WE WILL START BLADDER TRAINING. OTHERWISE, WE WILL CONTINUE WITH CURRENT PLAN OF CARE. WE WILL FOLLOW UP WITH AM LABS AND CONTINUE TO MONITOR. - Past Medical Family Social History Past Med/Fam/Surg Hx: No changes since H&P Allergies: Allergies niacin Allergy (Verified 09/20/19 10:09) - Review of Systems ROS: No change since H&P - Vital Signs and I&O's Vital Signs: Temperature 98 F Pulse Rate [Left Radial] 104 Pulse Rate 74 Respiratory Rate 20 Blood Pressure [Right Arm] 89/41 Blood Pressure [Left Arm] 128/61 Blood Pressure [Standing] 89/50 Blood Pressure [Sitting] 110/61 Blood Pressure [Lying] 109/52 Blood Pressure 157/70 O2 Sat by Pulse Oximetry 100 Intake and Output: Intake & Output 09/21/19 09/22/19 09/23/19 09/24/19 11:59 11:59 11:59 11:59 Intake Total 5475 / 5475 6421 / 6421 4521 / 4521 2810 / 2810 Output Total 1900 / 1900 1900 / 1900 500 / 500 Balance 5475 / 5475 4521 / 4521 2621 / 2621 2310 / 2310 - Physical Exam Oriented: Normal Eyes: Normal Nose: Normal Throat: Normal Respiratory: Generalized, Diminished Cardiovascular: Other (still on small dose of Dopamin ) : Normal Auscultation: Bowel Sounds: Decreased Palpation: Normal Tenderness: Diffuse (diffuse tenderness . no rebound ) Skin: Normal Musculoskeletal: Normal Psychiatric: Normal Mood Description: Calm Affect: Normal Speech Pattern: Clear, Appropriate - Laboratory and Diagnostics Result Diagrams: 09/23/19 05:20 09/23/19 08:58 Labs: 09/20/19 13:15 Blood Blood Culture - Preliminary 09/20/19 12:25 Blood Blood Culture - Preliminary Laboratory WBC 15.7 X10^3/uL (3.6-10.0) H 09/23/19 05:20 RBC 2.63 X10^6/uL (4.7-6.0) L 09/23/19 05:20 Hgb 8.1 g/dL (13.5-18.0) L 09/23/19 05:20 Hct 23.7 % (42.0-54.0) L 09/23/19 05:20 MCV 90.3 fL (80.0-100.0) 09/23/19 05:20 MCH 30.7 pg (27.0-34.0) 09/23/19 05:20 MCHC 33.9 g/dL (33.0-35.0) 09/23/19 05:20 RDW 13.6 % (11.6-16.5) 09/23/19 05:20 Plt Count 247 X10^3/uL (150.0-450.0) 09/23/19 05:20 Plt Count Comment Increased (ADEQUATE) 09/21/19 05:42 MPV 8.1 fL (7.4-11.0) 09/23/19 05:20 Neut % (Auto) 77.9 % (42.0-75.0) H 09/23/19 05:20 Lymph % (Auto) 11.6 % (21.0-51.0) L 09/23/19 05:20 [place] % (Auto) 8.3 % (0.0-13.0) 09/23/19 05:20 Eos % (Auto) 1.7 % (0.9-2.9) 09/23/19 05:20 Baso % (Auto) 0.5 % (0.2-1.0) 09/23/19 05:20 Neut # (Auto) 12.3 x10^3/uL (2.2-4.8) H 09/23/19 05:20 Lymph # (Auto) 1.8 X10^3/uL (1.3-2.9) 09/23/19 05:20 [place] # (Auto) 1.3 x10^3/uL (0.3-0.8) H 09/23/19 05:20 Eos # (Auto) 0.3 x10^3/uL (0.0-0.2) H 09/23/19 05:20 Baso # (Auto) 0.1 X10^3/uL (0.0-0.1) 09/23/19 05:20 Absolute Nucleated RBC 0.0 /100WBC 09/23/19 05:20 Total Counted 100 09/21/19 05:42 Neutrophils % (Manual) 86 % (39-76) H 09/21/19 05:42 Band Neutrophils % 6 % (0-10) 09/21/19 05:42 Lymphocytes % (Manual) 6 % (13-43) L 09/21/19 05:42 Monocytes % (Manual) 2 % (4-9) L 09/21/19 05:42 Plt Morphology Comment Normal (NORMAL) 09/21/19 05:42 RBC Morphology Normal (NORMAL) 09/21/19 05:42 ESR 109 MM/HOUR (0-15) H 09/23/19 05:20 Sample Site Lrad 09/21/19 10:12 ABG pH 7.410 (7.35-7.45) 09/21/19 10:12 ABG pCO2 35.0 mmHg (35.0-45.0) 09/21/19 10:12 ABG pO2 101.0 mmHg (80.0-100.0) H 09/21/19 10:12 ABG HCO3 22.2 mmol/L (22-26) 09/21/19 10:12 ABG O2 Saturation 98.0 % (90-100) 09/21/19 10:12 ABG Base Excess -1.9 mmol/L (-2.0-2.0) 09/21/19 10:12 Damian Test Pos 09/21/19 10:12 A-a Gradient 55.0 mmHg 09/21/19 10:12 FiO2 28.0 09/21/19 10:12 Blood Gas Comments Pt katlyn well elj cdn 09/21/19 10:12 Sodium 143 mmol/L (136-145) 09/23/19 05:20 Corrected Sodium TNP 09/23/19 05:20 Potassium 3.7 mmol/L (3.5-5.1) 09/23/19 05:20 Chloride 110 mmol/L (98-107) H 09/23/19 05:20 Carbon Dioxide 22.6 mmol/L (21-32) 09/23/19 05:20 BUN 18 mg/dL (7-18) 09/23/19 05:20 Creatinine 1.38 mg/dL (0.70-1.30) H 09/23/19 08:58 Est GFR (MDRD) Af Amer > 60 (>60) 09/23/19 05:20 Est GFR (MDRD) Non-Af 56 (>60) L 09/23/19 05:20 Glucose 86 mg/dL (65-99) 09/23/19 05:20 Lactic Acid 1.5 mmol/L (0.4-2.0) 09/20/19 12:25 Calcium 7.5 mg/dL (8.5-10.1) L 09/23/19 05:20 Corrected Calcium 9.0 mg/dL (8.5-10.1) 09/23/19 05:20 Iron 19 ug/dL (50-175) L 09/20/19 10:05 Transferrin 102 mg/dL (202-364) L 09/20/19 10:05 Ferritin 1349 ng/mL (26-388) H 04/30/20 10:05 Total Bilirubin 0.30 mg/dL (0.2-1.0) 09/23/19 05:20 AST 30 Units/L (15-37) 09/23/19 05:20 ALT 36 Units/L (12-78) 09/23/19 05:20 Alkaline Phosphatase 177 Units/L (46-116) H 09/23/19 05:20 C-Reactive Protein 121.30 mg/L (0-3.0) H 09/23/19 05:20 Total Protein 5.8 g/dL (6.4-8.2) L 09/23/19 05:20 Albumin 2.1 g/dL (3.4-5.0) L 09/23/19 05:20 Globulin 3.7 g/dL (2.5-4.5) 09/23/19 05:20 Albumin/Globulin Ratio 0.6 Ratio (1.1-2.1) L 09/23/19 05:20 Amylase 27 Units/L (25-115) 09/23/19 05:20 Lipase 263 Units/L (73-393) 09/23/19 05:20 Vitamin B12 955 pg/mL (193-986) 09/20/19 10:05 Folate 19.2 ng/mL (>8.6) 09/20/19 10:05 Specimen Type Catherized urine 09/21/19 10:38 Urine Color Yellow (YELLOW) 09/21/19 10:38 Urine Appearance Clear (CLEAR) 09/21/19 10:38 Urine pH 5.0 (5.0 - 8.0) 09/21/19 10:38 Ur Specific [place] 1.020 (1.000-1.030) 09/21/19 10:38 Urine Protein 2+ (NEGATIVE) 09/21/19 10:38 Urine Glucose (UA) 1+ (NEGATIVE) 09/21/19 10:38 Urine Ketones Negative (NEGATIVE) 09/21/19 10:38 Urine Occult Blood 3+ (NEGATIVE) 09/21/19 10:38 Urine Nitrite Negative (NEGATIVE) 09/21/19 10:38 Urine Bilirubin Negative (NEGATIVE) 09/21/19 10:38 Urine Urobilinogen Normal (NORMAL) 09/21/19 10:38 Ur Leukocyte Esterase Negative (NEGATIVE) 09/21/19 10:38 Urine RBC 3-5 /HPF (0-3) A 09/21/19 10:38 Urine WBC 0-2 /HPF (0-5) 09/21/19 10:38 Ur Squamous Epith Cells Rare /HPF (NEGATIVE) 09/21/19 10:38 Ur Transition Epith Cell Few /HPF (NEGATIVE) 09/21/19 10:38 Amorphous Sediment 2+ /HPF (NEGATIVE) 09/21/19 10:38 Urine Bacteria Negative /HPF (NEGATIVE) 09/21/19 10:38 Granular Casts Few /LPF (NEGATIVE) 09/21/19 10:38 Urine Mucus Few /HPF (NEGATIVE) 09/21/19 10:38 Ur Culture Indicated? No/not indicated 09/21/19 10:38 Vancomycin Trough 11.3 ug/mL (15-20) L 09/23/19 08:58 Influenza Type A Ag Negative-presumptive (NEGATIVE) 09/20/19 10:15 Influenza Type B Ag Negative-presumptive (NEGATIVE) 09/20/19 10:15 Mycoplasma pneumon IgG Negative (NEGATIVE) 09/20/19 10:05 S. pyogenes (TEM-PCR) Not detected (NOT DETECT) 09/20/19 10:15 - Plan (1) Sepsis associated hypotension Status: Acute Plan: VANCOMYCIN 1G IV DAILY, ZOSYN 3.375G IV TID, CIPRO 400MG IV Q12H, NS AT 150ML/HR, LOVENOX 30MG SC DAILY (2) Acute pancreatitis Status: Acute Qualifiers: Pancreatitis type: unspecified pancreatitis type Acute pancreatitis complication: unspecified Qualified Code(s): K85.90 - Acute pancreatitis without necrosis or infection, unspecified Plan: REPEAT ABDOMEN/PELVIS CT WITH CONTRAST, CONTINUE TO MONITOR (3) FARRAH (acute kidney injury) Status: Acute (4) Anemia Status: Acute Qualifiers: Anemia type: iron deficiency Iron deficiency anemia type: unspecified iron deficiency Qualified Code(s): D50.9 - Iron deficiency anemia, unspecified Plan: CONTINUE TO MONITOR
[2019-09-23] MEDS: RESTORIL CAP 15 MG PO PRN (21:43)
[2019-09-23] MEDS: LIPITOR TAB 10 MG PO SCH (21:43)
[2019-09-23] MEDS: ARTIFICIAL TEARS DROPS AFFEYE SCH (22:09)
[2019-09-24] MEDS: NS 1000 ML 1,000 ML IV SCH (00:52)
[2019-09-24] MEDS ORDERED: MORPHINE SULFATE INJ 2 MG INJ IVP ONE (01:15)
[2019-09-24] MEDS ORDERED: MORPHINE SULFATE INJ 2 MG INJ ONE (01:18)
[2019-09-24] MEDS ORDERED: PROVENTIL NEB TX 0.083% 2.5MG/ 3ML NEB ONE (01:30)
[2019-09-24 05:18] LABS: ALANINE AMINOTRANSFERASE 29 Units/L (12-78); ALBUMIN 2.3 g/dL (3.4-5.0); ALKALINE PHOSPHATASE 232 Units/L (46-116); ASPARTATE AMINO TRANSFERASE 23 Units/L (15-37); BLOOD UREA NITROGEN 14 mg/dL (7-18); CALCIUM 7.9 mg/dL (8.5-10.1); CARBON DIOXIDE 20.9 mmol/L (21-32); CHLORIDE 109 mmol/L (98-107); COR CA(FOR HYPOALB) 9.3 mg/dL (8.5-10.1); CREATININE 1.42 mg/dL (0.70-1.30); SODIUM 142 mmol/L (136-145); TOTAL PROTEIN 5.8 g/dL (6.4-8.2); eGFR NON BLACK RACES 50 (>60)
[2019-09-24 05:27] LABS: BASOPHILS # (AUTO) 0.1 X10^3/uL (0.0-0.1); BASOPHILS % (AUTO) 0.5 % (0.2-1.0); EOSINOPHILS # (AUTO) 0.2 x10^3/uL (0.0-0.2); EOSINOPHILS % (AUTO) 0.9 % (0.9-2.9); HEMATOCRIT 25.1 % (42.0-54.0); HEMOGLOBIN 8.6 g/dL (13.5-18.0); LYMPHOCYTES # (AUTO) 0.6 X10^3/uL (1.3-2.9); LYMPHOCYTES % (AUTO) 3.2 % (21.0-51.0); MEAN CORPUSCULAR HEMOGLOBIN 30.4 pg (27.0-34.0); MEAN CORPUSCULAR HGB CONC 34.2 g/dL (33.0-35.0); MEAN CORPUSCULAR VOLUME 88.9 fL (80.0-100.0); MEAN PLATELET VOLUME 7.7 fL (7.4-11.0); MONOCYTES # (AUTO) 0.5 x10^3/uL (0.3-0.8); MONOCYTES % (AUTO) 2.7 % (0.0-13.0); NEUTROPHILS # (AUTO) 16.7 x10^3/uL (2.2-4.8); NEUTROPHILS % (AUTO) 92.7 % (42.0-75.0); PLATELET COUNT 257 X10^3/uL (150.0-450.0); RED BLOOD COUNT 2.82 X10^6/uL (4.7-6.0); RED CELL DISTRIBUTION WIDTH 13.8 % (11.6-16.5); WHITE BLOOD COUNT 18.1 X10^3/uL (3.6-10.0)
[2019-09-24] MEDS: ZOSYN VIAL 3.375 GRAMS 3.375 G in NS 100 ML IV + SPIKE MINIBAG* 100 ML IV SCH ×3 (05:38→21:38)
[2019-09-24 05:55] LABS: PLATELET MORPHOLOGY COMMENT NORMAL (NORMAL)
[2019-09-24] MEDS: ARTIFICIAL TEARS DROPS AFFEYE SCH ×3 (09:20→20:31)
[2019-09-24] MEDS: LOVENOX INJ 30 MG SYR SC SCH (09:20)
[2019-09-24] MEDS: CIPRO IV 400 MG PREMIX* 400 MG/200 ML IV.SOLN. IV SCH ×2 (09:20→20:31)
[2019-09-24] MEDS: PREVACID PO SCH ×2 (09:20→20:31)
--- NOTE | 2019-09-24 10:19 | RAD ---
HISTORYHYPOXIASTUDYCHEST x-ray, 1 VIEWCOMPARISONX-ray 09/21/2019FINDINGSThe trachea is midline. The cardiac silhouette is likely normal in size on this AP radiograph.Probable mild atelectasis in the lung basis with associated small pleural effusions, new since prior study. No pneumothorax is seen.No acute bony abnormality is seen.IMPRESSIONLikely new small pleural effusions and associated atelectasis.Electronically signed by: Ignacio Juarez (September 24, 2019 10:18:17)
--- NOTE | 2019-09-24 12:06 | PCM.PROG ---
Progress Note Progress Note for Day of Date of Exam: 09/24/19 Subjective Subjective: Patient seen at bedside, no events overnight. Patient states he feels slightly better. He denies N/V/D or abdominal pain. He still has decreased appetite but has improved. He had a repeat CTAP done yesterday which showed persistent acute pancreatitis with pseudocyst and possible obstruction of the pancreatic duct. He is currently on 2L NC. He is on Cipro, Vancomycin and Zosyn. Dr. Trejo also seeing the patient. Labs: WBC slightly elevated from yesterday, BUN/Cr: 14/1.42, Hgb: 8.6 Plan: follow surgery recommendations, wean off oxygen, repeat CXR, follow tumor markers. Will DC vancomycin as blood cultures remain negative. Will DC fluids as patient has good oral intake. Monitor AM labs. Past Medical Family Social History Past Med/Fam/Surg Hx: No changes since H&P Allergies: Allergies niacin Allergy (Verified 09/20/19 10:09) Review of Systems ROS: No change since H&P Vital Signs and I&O's Vital Signs: Temperature 98.1 F Pulse Rate [Left Radial] 104 Pulse Rate 80 Respiratory Rate 20 Blood Pressure [Right Arm] 89/41 Blood Pressure [Left Arm] 128/61 Blood Pressure [Standing] 89/50 Blood Pressure [Sitting] 110/61 Blood Pressure [Lying] 109/52 Blood Pressure 162/77 O2 Sat by Pulse Oximetry 100 Intake and Output: Intake & Output 09/21/19 09/22/19 09/23/19 09/24/19 23:59 23:59 23:59 23:59 Intake Total 7577 / 7577 4220 / 4220 4561 / 4561 0 / 0 Output Total 1300 / 1300 1999 / 1999 1700 / 1700 400 / 400 Balance 6277 / 6277 2220 / 2220 2861 / 2861 -400 / -400 Physical Exam Oriented: Normal Eyes: Normal Nose: Normal Throat: Normal Respiratory: Generalized and Diminished Cardiovascular: Normal Auscultation: Bowel Sounds: Decreased Tenderness: Normal Skin: Normal Musculoskeletal: Normal Psychiatric: Normal Mood Description: Calm Affect: Normal Speech Pattern: Clear and Appropriate Laboratory and Diagnostics Result Diagrams: 09/24/19 04:40 09/24/19 04:40 Labs: 09/20/19 13:15 Blood Blood Culture - Preliminary 09/20/19 12:25 Blood Blood Culture - Preliminary Laboratory WBC 18.1 X10^3/uL (3.6-10.0) H 09/24/19 04:40 RBC 2.82 X10^6/uL (4.7-6.0) L 09/24/19 04:40 Hgb 8.6 g/dL (13.5-18.0) L 09/24/19 04:40 Hct 25.1 % (42.0-54.0) L 09/24/19 04:40 MCV 88.9 fL (80.0-100.0) 09/24/19 04:40 MCH 30.4 pg (27.0-34.0) 09/24/19 04:40 MCHC 34.2 g/dL (33.0-35.0) 09/24/19 04:40 RDW 13.8 % (11.6-16.5) 09/24/19 04:40 Plt Count 257 X10^3/uL (150.0-450.0) 09/24/19 04:40 Plt Count Comment Adequate (ADEQUATE) 09/24/19 04:40 MPV 7.7 fL (7.4-11.0) 09/24/19 04:40 Neut % (Auto) 92.7 % (42.0-75.0) H 09/24/19 04:40 Lymph % (Auto) 3.2 % (21.0-51.0) L 09/24/19 04:40 [place] % (Auto) 2.7 % (0.0-13.0) 09/24/19 04:40 Eos % (Auto) 0.9 % (0.9-2.9) 09/24/19 04:40 Baso % (Auto) 0.5 % (0.2-1.0) 09/24/19 04:40 Neut # (Auto) 16.7 x10^3/uL (2.2-4.8) H 09/24/19 04:40 Lymph # (Auto) 0.6 X10^3/uL (1.3-2.9) L 09/24/19 04:40 [place] # (Auto) 0.5 x10^3/uL (0.3-0.8) 09/24/19 04:40 Eos # (Auto) 0.2 x10^3/uL (0.0-0.2) 09/24/19 04:40 Baso # (Auto) 0.1 X10^3/uL (0.0-0.1) 09/24/19 04:40 Absolute Nucleated RBC 0.0 /100WBC 09/24/19 04:40 Total Counted 100 09/24/19 04:40 Neutrophils % (Manual) 92 % (39-76) H 09/24/19 04:40 Band Neutrophils % 6 % (0-10) 09/21/19 05:42 Lymphocytes % (Manual) 5 % (13-43) L 09/24/19 04:40 Monocytes % (Manual) 1 % (4-9) L 09/24/19 04:40 Eosinophils % (Manual) 2 % (0-6) 09/24/19 04:40 Plt Morphology Comment Normal (NORMAL) 09/24/19 04:40 RBC Morphology Normal (NORMAL) 09/24/19 04:40 ESR 109 MM/HOUR (0-15) H 09/23/19 05:20 Sample Site Lrad 09/21/19 10:12 ABG pH 7.410 (7.35-7.45) 09/21/19 10:12 ABG pCO2 35.0 mmHg (35.0-45.0) 09/21/19 10:12 ABG pO2 101.0 mmHg (80.0-100.0) H 09/21/19 10:12 ABG HCO3 22.2 mmol/L (22-26) 09/21/19 10:12 ABG O2 Saturation 98.0 % (90-100) 09/21/19 10:12 ABG Base Excess -1.9 mmol/L (-2.0-2.0) 09/21/19 10:12 Damian Test Pos 09/21/19 10:12 A-a Gradient 55.0 mmHg 09/21/19 10:12 FiO2 28.0 09/21/19 10:12 Blood Gas Comments Pt katlyn well elj cdn 09/21/19 10:12 Sodium 142 mmol/L (136-145) 09/24/19 04:40 Corrected Sodium TNP 09/24/19 04:40 Potassium 3.8 mmol/L (3.5-5.1) 09/24/19 04:40 Chloride 109 mmol/L (98-107) H 09/24/19 04:40 Carbon Dioxide 20.9 mmol/L (21-32) L 09/24/19 04:40 BUN 14 mg/dL (7-18) 09/24/19 04:40 Creatinine 1.42 mg/dL (0.70-1.30) H 09/24/19 04:40 Est GFR (MDRD) Af Amer > 60 (>60) 09/24/19 04:40 Est GFR (MDRD) Non-Af 50 (>60) L 09/24/19 04:40 Glucose 100 mg/dL (65-99) H 09/24/19 04:40 Lactic Acid 1.5 mmol/L (0.4-2.0) 09/20/19 12:25 Calcium 7.9 mg/dL (8.5-10.1) L 09/24/19 04:40 Corrected Calcium 9.3 mg/dL (8.5-10.1) 09/24/19 04:40 Iron 19 ug/dL (50-175) L 09/20/19 10:05 Transferrin 102 mg/dL (202-364) L 09/20/19 10:05 Ferritin 1349 ng/mL (26-388) H 09/20/19 10:05 Total Bilirubin 0.60 mg/dL (0.2-1.0) 09/24/19 04:40 AST 23 Units/L (15-37) 09/24/19 04:40 ALT 29 Units/L (12-78) 09/24/19 04:40 Alkaline Phosphatase 232 Units/L (46-116) H 09/24/19 04:40 C-Reactive Protein 121.30 mg/L (0-3.0) H 09/23/19 05:20 Total Protein 5.8 g/dL (6.4-8.2) L 09/24/19 04:40 Albumin 2.3 g/dL (3.4-5.0) L 09/24/19 04:40 Globulin 3.5 g/dL (2.5-4.5) 09/24/19 04:40 Albumin/Globulin Ratio 0.7 Ratio (1.1-2.1) L 09/24/19 04:40 Amylase 27 Units/L (25-115) 09/23/19 05:20 Lipase 263 Units/L (73-393) 09/23/19 05:20 Carcinoembryonic Ag 3.4 ng/mL (0.0-3.0) H 09/20/19 12:25 CA 19-9 Antigen 435 U/mL (0-37) H 09/20/19 12:25 Vitamin B12 955 pg/mL (193-986) 09/20/19 10:05 Folate 19.2 ng/mL (>8.6) 09/20/19 10:05 Specimen Type Catherized urine 09/21/19 10:38 Urine Color Yellow (YELLOW) 09/21/19 10:38 Urine Appearance Clear (CLEAR) 09/21/19 10:38 Urine pH 5.0 (5.0 - 8.0) 09/21/19 10:38 Ur Specific [place] 1.020 (1.000-1.030) 09/21/19 10:38 Urine Protein 2+ (NEGATIVE) 09/21/19 10:38 Urine Glucose (UA) 1+ (NEGATIVE) 09/21/19 10:38 Urine Ketones Negative (NEGATIVE) 09/21/19 10:38 Urine Occult Blood 3+ (NEGATIVE) 09/21/19 10:38 Urine Nitrite Negative (NEGATIVE) 09/21/19 10:38 Urine Bilirubin Negative (NEGATIVE) 09/21/19 10:38 Urine Urobilinogen Normal (NORMAL) 09/21/19 10:38 Ur Leukocyte Esterase Negative (NEGATIVE) 09/21/19 10:38 Urine RBC 3-5 /HPF (0-3) A 09/21/19 10:38 Urine WBC 0-2 /HPF (0-5) 09/21/19 10:38 Ur Squamous Epith Cells Rare /HPF (NEGATIVE) 09/21/19 10:38 Ur Transition Epith Cell Few /HPF (NEGATIVE) 09/21/19 10:38 Amorphous Sediment 2+ /HPF (NEGATIVE) 09/21/19 10:38 Urine Bacteria Negative /HPF (NEGATIVE) 09/21/19 10:38 Granular Casts Few /LPF (NEGATIVE) 09/21/19 10:38 Urine Mucus Few /HPF (NEGATIVE) 09/21/19 10:38 Ur Culture Indicated? No/not indicated 09/21/19 10:38 Vancomycin Trough 11.3 ug/mL (15-20) L 09/23/19 08:58 Influenza Type A Ag Negative-presumptive (NEGATIVE) 09/20/19 10:15 Influenza Type B Ag Negative-presumptive (NEGATIVE) 09/20/19 10:15 Mycoplasma pneumon IgG Negative (NEGATIVE) 09/20/19 10:05 S. pyogenes (TEM-PCR) Not detected (NOT DETECT) 09/20/19 10:15 Plan (1) Sepsis associated hypotension: Status: Acute Plan: VANCOMYCIN 1G IV DAILY, ZOSYN 3.375G IV TID, CIPRO 400MG IV Q12H, NS AT 150ML/HR, LOVENOX 30MG SC DAILY (2) Acute pancreatitis: Status: Acute Qualifiers: Acute pancreatitis complication: unspecified Pancreatitis type: unspecified pancreatitis type Qualified Code(s): K85.90 - Acute pancreatitis without necrosis or infection, unspecified Plan: REPEAT ABDOMEN/PELVIS CT WITH CONTRAST, CONTINUE TO MONITOR (3) FARRAH (acute kidney injury): Status: Acute (4) Anemia: Status: Acute Qualifiers: Anemia type: iron deficiency Iron deficiency anemia type: unspecified iron deficiency Qualified Code(s): D50.9 - Iron deficiency anemia, unspecified Plan: CONTINUE TO MONITOR (5) Cyst and pseudocyst of pancreas: Status: Acute (6) Pancreatic duct obstruction: Status: Acute
--- NOTE | 2019-09-24 14:16 | DR.PROGNOT ---
Hospital Progress Notes - Progress Note for Day of: Progress Note Date: 09/24/19 - Chief Complaint Chief Complaint: moderate SOB. had another episode of chills last night.. no abdominal pain , LFT , Amylase , Lipase are normal . WBC 18.1. Ca 19-9 high 435 CEA 3.4 .. Alk ph 232 . afebrile - Past Medical Family Social History Past Med/Fam/Surg Hx: No changes since H&P Allergies: Allergies niacin Allergy (Verified 09/20/19 10:09) - Review Of Systems ROS: No change since H&P - Vital Signs Vital Signs: Temperature 97.9 F Pulse Rate [Left Radial] 104 Pulse Rate 66 Respiratory Rate 20 Blood Pressure [Right Arm] 89/41 Blood Pressure [Left Arm] 128/61 Blood Pressure [Standing] 89/50 Blood Pressure [Sitting] 110/61 Blood Pressure [Lying] 109/52 Blood Pressure 160/74 O2 Sat by Pulse Oximetry 100 - Physical Exam Oriented: Normal Eyes: Normal Nose: Normal Throat: Normal Respiratory: Generalized, Diminished Cardiovascular: Other (still on small dose of Dopamin) : Normal GI:Auscultation: Decreased GI:Palpation: Normal GI: Tenderness: Diffuse (diffuse tenderness . no rebound) Skin: Normal Musculoskeletal: Normal Psychiatric: Normal Mood Description: Calm Affect: Normal Speech Pattern: Clear, Appropriate - Laboratory and Diagnostics Result Diagrams: 09/24/19 04:40 09/24/19 04:40 Labs: 09/20/19 13:15 Blood Blood Culture - Preliminary 09/20/19 12:25 Blood Blood Culture - Preliminary Laboratory WBC 18.1 X10^3/uL (3.6-10.0) H 09/24/19 04:40 RBC 2.82 X10^6/uL (4.7-6.0) L 09/24/19 04:40 Hgb 8.6 g/dL (13.5-18.0) L 09/24/19 04:40 Hct 25.1 % (42.0-54.0) L 09/24/19 04:40 MCV 88.9 fL (80.0-100.0) 09/24/19 04:40 MCH 30.4 pg (27.0-34.0) 09/24/19 04:40 MCHC 34.2 g/dL (33.0-35.0) 09/24/19 04:40 RDW 13.8 % (11.6-16.5) 09/24/19 04:40 Plt Count 257 X10^3/uL (150.0-450.0) 09/24/19 04:40 Plt Count Comment Adequate (ADEQUATE) 09/24/19 04:40 MPV 7.7 fL (7.4-11.0) 09/24/19 04:40 Neut % (Auto) 92.7 % (42.0-75.0) H 09/24/19 04:40 Lymph % (Auto) 3.2 % (21.0-51.0) L 09/24/19 04:40 [place] % (Auto) 2.7 % (0.0-13.0) 09/24/19 04:40 Eos % (Auto) 0.9 % (0.9-2.9) 09/24/19 04:40 Baso % (Auto) 0.5 % (0.2-1.0) 09/24/19 04:40 Neut # (Auto) 16.7 x10^3/uL (2.2-4.8) H 09/24/19 04:40 Lymph # (Auto) 0.6 X10^3/uL (1.3-2.9) L 09/24/19 04:40 [place] # (Auto) 0.5 x10^3/uL (0.3-0.8) 09/24/19 04:40 Eos # (Auto) 0.2 x10^3/uL (0.0-0.2) 09/24/19 04:40 Baso # (Auto) 0.1 X10^3/uL (0.0-0.1) 09/24/19 04:40 Absolute Nucleated RBC 0.0 /100WBC 09/24/19 04:40 Total Counted 100 09/24/19 04:40 Neutrophils % (Manual) 92 % (39-76) H 09/24/19 04:40 Band Neutrophils % 6 % (0-10) 09/21/19 05:42 Lymphocytes % (Manual) 5 % (13-43) L 09/24/19 04:40 Monocytes % (Manual) 1 % (4-9) L 09/24/19 04:40 Eosinophils % (Manual) 2 % (0-6) 09/24/19 04:40 Plt Morphology Comment Normal (NORMAL) 09/24/19 04:40 RBC Morphology Normal (NORMAL) 09/24/19 04:40 ESR 109 MM/HOUR (0-15) H 09/23/19 05:20 Sample Site Lrad 09/21/19 10:12 ABG pH 7.410 (7.35-7.45) 09/21/19 10:12 ABG pCO2 35.0 mmHg (35.0-45.0) 09/21/19 10:12 ABG pO2 101.0 mmHg (80.0-100.0) H 09/21/19 10:12 ABG HCO3 22.2 mmol/L (22-26) 09/21/19 10:12 ABG O2 Saturation 98.0 % (90-100) 09/21/19 10:12 ABG Base Excess -1.9 mmol/L (-2.0-2.0) 09/21/19 10:12 Damian Test Pos 09/21/19 10:12 A-a Gradient 55.0 mmHg 09/21/19 10:12 FiO2 28.0 09/21/19 10:12 Blood Gas Comments Pt katlyn well elj cdn 09/21/19 10:12 Sodium 142 mmol/L (136-145) 09/24/19 04:40 Corrected Sodium TNP 09/24/19 04:40 Potassium 3.8 mmol/L (3.5-5.1) 09/24/19 04:40 Chloride 109 mmol/L (98-107) H 09/24/19 04:40 Carbon Dioxide 20.9 mmol/L (21-32) L 09/24/19 04:40 BUN 14 mg/dL (7-18) 09/24/19 04:40 Creatinine 1.42 mg/dL (0.70-1.30) H 09/24/19 04:40 Est GFR (MDRD) Af Amer > 60 (>60) 09/24/19 04:40 Est GFR (MDRD) Non-Af 50 (>60) L 09/24/19 04:40 Glucose 100 mg/dL (65-99) H 09/24/19 04:40 Lactic Acid 1.5 mmol/L (0.4-2.0) 09/20/19 12:25 Calcium 7.9 mg/dL (8.5-10.1) L 09/24/19 04:40 Corrected Calcium 9.3 mg/dL (8.5-10.1) 09/24/19 04:40 Iron 19 ug/dL (50-175) L 09/20/19 10:05 Transferrin 102 mg/dL (202-364) L 09/20/19 10:05 Ferritin 1349 ng/mL (26-388) H 09/20/19 10:05 Total Bilirubin 0.60 mg/dL (0.2-1.0) 09/24/19 04:40 AST 23 Units/L (15-37) 09/24/19 04:40 ALT 29 Units/L (12-78) 09/24/19 04:40 Alkaline Phosphatase 232 Units/L (46-116) H 09/24/19 04:40 C-Reactive Protein 121.30 mg/L (0-3.0) H 09/23/19 05:20 Total Protein 5.8 g/dL (6.4-8.2) L 09/24/19 04:40 Albumin 2.3 g/dL (3.4-5.0) L 09/24/19 04:40 Globulin 3.5 g/dL (2.5-4.5) 09/24/19 04:40 Albumin/Globulin Ratio 0.7 Ratio (1.1-2.1) L 09/24/19 04:40 Amylase 27 Units/L (25-115) 09/23/19 05:20 Lipase 263 Units/L (73-393) 09/23/19 05:20 Carcinoembryonic Ag 3.4 ng/mL (0.0-3.0) H 09/20/19 12:25 CA 19-9 Antigen 435 U/mL (0-37) H 09/20/19 12:25 Vitamin B12 955 pg/mL (193-986) 09/20/19 10:05 Folate 19.2 ng/mL (>8.6) 09/20/19 10:05 Specimen Type Catherized urine 09/21/19 10:38 Urine Color Yellow (YELLOW) 09/21/19 10:38 Urine Appearance Clear (CLEAR) 09/21/19 10:38 Urine pH 5.0 (5.0 - 8.0) 09/21/19 10:38 Ur Specific [place] 1.020 (1.000-1.030) 09/21/19 10:38 Urine Protein 2+ (NEGATIVE) 09/21/19 10:38 Urine Glucose (UA) 1+ (NEGATIVE) 09/21/19 10:38 Urine Ketones Negative (NEGATIVE) 09/21/19 10:38 Urine Occult Blood 3+ (NEGATIVE) 09/21/19 10:38 Urine Nitrite Negative (NEGATIVE) 09/21/19 10:38 Urine Bilirubin Negative (NEGATIVE) 09/21/19 10:38 Urine Urobilinogen Normal (NORMAL) 09/21/19 10:38 Ur Leukocyte Esterase Negative (NEGATIVE) 09/21/19 10:38 Urine RBC 3-5 /HPF (0-3) A 09/21/19 10:38 Urine WBC 0-2 /HPF (0-5) 09/21/19 10:38 Ur Squamous Epith Cells Rare /HPF (NEGATIVE) 09/21/19 10:38 Ur Transition Epith Cell Few /HPF (NEGATIVE) 09/21/19 10:38 Amorphous Sediment 2+ /HPF (NEGATIVE) 09/21/19 10:38 Urine Bacteria Negative /HPF (NEGATIVE) 09/21/19 10:38 Granular Casts Few /LPF (NEGATIVE) 09/21/19 10:38 Urine Mucus Few /HPF (NEGATIVE) 09/21/19 10:38 Ur Culture Indicated? No/not indicated 09/21/19 10:38 Vancomycin Trough 11.3 ug/mL (15-20) L 09/23/19 08:58 Influenza Type A Ag Negative-presumptive (NEGATIVE) 09/20/19 10:15 Influenza Type B Ag Negative-presumptive (NEGATIVE) 09/20/19 10:15 Mycoplasma pneumon IgG Negative (NEGATIVE) 09/20/19 10:05 S. pyogenes (TEM-PCR) Not detected (NOT DETECT) 09/20/19 10:15 - Assessment and Plan 1: 1-subsiding acute pancreatitis possible distal pacreatic pseudocyst and underlining malignancy . subsided sepsis . gallstones . anemia and dehydration. same IVF and ATB . DVT prophylaxis and close monitoring . for MRI o abdomen .. - Problem Patient Problems: Patient Problems Anemia (Acute) D64.9 FARRAH (acute kidney injury) (Acute) N17.9 Suspected COVID-19 virus infection (Acute) Z20.828 Acute pancreatitis (Acute) K85.90 Sepsis associated hypotension (Acute) A41.9, I95.9
[2019-09-24] MEDS ORDERED: ZESTORETIC 10/ 12.5MG PO SCH (14:45)
[2019-09-24] MEDS ORDERED: NS 1000 ML 1,000 ML ONE (20:14)
[2019-09-24] MEDS ORDERED: PHARMACY COMMENT IV NR (20:30)
[2019-09-24] MEDS: LIPITOR TAB 10 MG PO SCH (20:31)
[2019-09-25 05:16] LABS: BASOPHILS # (AUTO) 0.1 X10^3/uL (0.0-0.1); BASOPHILS % (AUTO) 0.6 % (0.2-1.0); EOSINOPHILS # (AUTO) 0.6 x10^3/uL (0.0-0.2); EOSINOPHILS % (AUTO) 4.6 % (0.9-2.9); HEMATOCRIT 26.8 % (42.0-54.0); HEMOGLOBIN 9.2 g/dL (13.5-18.0); LYMPHOCYTES # (AUTO) 1.3 X10^3/uL (1.3-2.9); LYMPHOCYTES % (AUTO) 10.4 % (21.0-51.0); MEAN CORPUSCULAR HEMOGLOBIN 30.8 pg (27.0-34.0); MEAN CORPUSCULAR HGB CONC 34.2 g/dL (33.0-35.0); MONOCYTES # (AUTO) 0.8 x10^3/uL (0.3-0.8); MONOCYTES % (AUTO) 6.8 % (0.0-13.0); NEUTROPHILS # (AUTO) 9.7 x10^3/uL (2.2-4.8); NEUTROPHILS % (AUTO) 77.6 % (42.0-75.0); PLATELET COUNT 259 X10^3/uL (150.0-450.0); RED BLOOD COUNT 2.97 X10^6/uL (4.7-6.0); RED CELL DISTRIBUTION WIDTH 13.6 % (11.6-16.5); WHITE BLOOD COUNT 12.5 X10^3/uL (3.6-10.0)
[2019-09-25 05:20] LABS: ALANINE AMINOTRANSFERASE 34 Units/L (12-78); ALBUMIN 2.4 g/dL (3.4-5.0); ALKALINE PHOSPHATASE 217 Units/L (46-116); ASPARTATE AMINO TRANSFERASE 31 Units/L (15-37); BLOOD UREA NITROGEN 12 mg/dL (7-18); CALCIUM 8.2 mg/dL (8.5-10.1); CARBON DIOXIDE 20.2 mmol/L (21-32); CHLORIDE 109 mmol/L (98-107); COR CA(FOR HYPOALB) 9.5 mg/dL (8.5-10.1); COR NA(FOR HYPERGLY) 142 mmol/L (136-145); CREATININE 1.39 mg/dL (0.70-1.30); SODIUM 142 mmol/L (136-145); TOTAL PROTEIN 5.9 g/dL (6.4-8.2); eGFR NON BLACK RACES 51 (>60)
[2019-09-25] MEDS: ZOSYN VIAL 3.375 GRAMS 3.375 G in NS 100 ML IV + SPIKE MINIBAG* 100 ML IV SCH ×3 (05:28→22:37)
[2019-09-25] MEDS ORDERED: ATIVAN INJ 2 MG VIAL IVP ONE (08:18)
--- NOTE | 2019-09-25 08:53 | PCM.PROG ---
Progress Note Progress Note for Day of Date of Exam: 09/25/19 Subjective Subjective: Patient seen at bedside, no events overnight. He is currently NPO for MRI abdomen this morning. Patient states he is claustrophobic and would like something to rest during the anxiety. He denies abdominal pain, N/V/D. He is off the oxygen and reports doing well. CXR yesterday showed small b/l pleural effusions and atelectasis. BP has been elevated, SBP in 170's. Labs: WBC trending down, Hgb: 9.2 Cr: 1.39 CEA: 3.4 CA 19-0: 435 Plan: follow up MRI, add incentive spirometer, PT/OT, continue Zosyn and Cipro. Monitor AM labs. Will add Ativan prn for prior to MRI. Increase lisinopril-hctz. Past Medical Family Social History Past Med/Fam/Surg Hx: No changes since H&P Allergies: Allergies niacin Allergy (Verified 09/20/19 10:09) Review of Systems ROS: No change since H&P Vital Signs and I&O's Vital Signs: Temperature 97.9 F Pulse Rate [Left Radial] 104 Pulse Rate 68 Respiratory Rate 20 Blood Pressure [Right Arm] 89/41 Blood Pressure [Left Arm] 128/61 Blood Pressure [Standing] 89/50 Blood Pressure [Sitting] 110/61 Blood Pressure [Lying] 109/52 Blood Pressure 183/77 O2 Sat by Pulse Oximetry 98 Intake and Output: Intake & Output 09/22/19 09/23/19 09/24/19 09/25/19 23:59 23:59 23:59 23:59 Intake Total 4220 / 4220 4561 / 4561 2250 / 2250 650 / 650 Output Total 1999 1700 / 1700 1625 / 1625 Balance 2220 / 2220 2861 / 2861 625 / 625 650 / 650 Physical Exam Oriented: Normal Eyes: Normal Nose: Normal Throat: Normal Respiratory: Generalized and Diminished Cardiovascular: Normal Auscultation: Bowel Sounds: Decreased Tenderness: Normal Skin: Normal Musculoskeletal: Normal Psychiatric: Normal Mood Description: Calm Affect: Normal Speech Pattern: Clear and Appropriate Laboratory and Diagnostics Result Diagrams: 09/25/19 04:35 09/25/19 04:35 Labs: 09/20/19 13:15 Blood Blood Culture - Preliminary 09/20/19 12:25 Blood Blood Culture - Preliminary Laboratory WBC 12.5 X10^3/uL (3.6-10.0) H 09/25/19 04:35 RBC 2.97 X10^6/uL (4.7-6.0) L 09/25/19 04:35 Hgb 9.2 g/dL (13.5-18.0) L 09/25/19 04:35 Hct 26.8 % (42.0-54.0) L 09/25/19 04:35 MCV 90.0 fL (80.0-100.0) 09/25/19 04:35 MCH 30.8 pg (27.0-34.0) 09/25/19 04:35 MCHC 34.2 g/dL (33.0-35.0) 09/25/19 04:35 RDW 13.6 % (11.6-16.5) 09/25/19 04:35 Plt Count 259 X10^3/uL (150.0-450.0) 09/25/19 04:35 Plt Count Comment Adequate (ADEQUATE) 09/24/19 04:40 MPV 8.0 fL (7.4-11.0) 09/25/19 04:35 Neut % (Auto) 77.6 % (42.0-75.0) H 09/25/19 04:35 Lymph % (Auto) 10.4 % (21.0-51.0) L 09/25/19 04:35 [place] % (Auto) 6.8 % (0.0-13.0) 09/25/19 04:35 Eos % (Auto) 4.6 % (0.9-2.9) H 09/25/19 04:35 Baso % (Auto) 0.6 % (0.2-1.0) 09/25/19 04:35 Neut # (Auto) 9.7 x10^3/uL (2.2-4.8) H 09/25/19 04:35 Lymph # (Auto) 1.3 X10^3/uL (1.3-2.9) 09/25/19 04:35 [place] # (Auto) 0.8 x10^3/uL (0.3-0.8) 09/25/19 04:35 Eos # (Auto) 0.6 x10^3/uL (0.0-0.2) H 09/25/19 04:35 Baso # (Auto) 0.1 X10^3/uL (0.0-0.1) 09/25/19 04:35 Absolute Nucleated RBC 0.0 /100WBC 09/25/19 04:35 Total Counted 100 09/24/19 04:40 Neutrophils % (Manual) 92 % (39-76) H 09/24/19 04:40 Band Neutrophils % 6 % (0-10) 09/21/19 05:42 Lymphocytes % (Manual) 5 % (13-43) L 09/24/19 04:40 Monocytes % (Manual) 1 % (4-9) L 09/24/19 04:40 Eosinophils % (Manual) 2 % (0-6) 09/24/19 04:40 Plt Morphology Comment Normal (NORMAL) 09/24/19 04:40 RBC Morphology Normal (NORMAL) 09/24/19 04:40 ESR 109 MM/HOUR (0-15) H 09/23/19 05:20 Sample Site Lrad 09/21/19 10:12 ABG pH 7.410 (7.35-7.45) 09/21/19 10:12 ABG pCO2 35.0 mmHg (35.0-45.0) 09/21/19 10:12 ABG pO2 101.0 mmHg (80.0-100.0) H 09/21/19 10:12 ABG HCO3 22.2 mmol/L (22-26) 09/21/19 10:12 ABG O2 Saturation 98.0 % (90-100) 09/21/19 10:12 ABG Base Excess -1.9 mmol/L (-2.0-2.0) 09/21/19 10:12 Damian Test Pos 09/21/19 10:12 A-a Gradient 55.0 mmHg 09/21/19 10:12 FiO2 28.0 09/21/19 10:12 Blood Gas Comments Pt katlyn well elj cdn 09/21/19 10:12 Sodium 142 mmol/L (136-145) 09/25/19 04:35 Corrected Sodium 142 mmol/L (136-145) 09/25/19 04:35 Potassium 3.6 mmol/L (3.5-5.1) 09/25/19 04:35 Chloride 109 mmol/L (98-107) H 09/25/19 04:35 Carbon Dioxide 20.2 mmol/L (21-32) L 09/25/19 04:35 BUN 12 mg/dL (7-18) 09/25/19 04:35 Creatinine 1.39 mg/dL (0.70-1.30) H 09/25/19 04:35 Est GFR (MDRD) Af Amer > 60 (>60) 09/25/19 04:35 Est GFR (MDRD) Non-Af 51 (>60) L 09/25/19 04:35 Glucose 112 mg/dL (65-99) H 09/25/19 04:35 Lactic Acid 1.5 mmol/L (0.4-2.0) 09/20/19 12:25 Calcium 8.2 mg/dL (8.5-10.1) L 09/25/19 04:35 Corrected Calcium 9.5 mg/dL (8.5-10.1) 09/25/19 04:35 Iron 19 ug/dL (50-175) L 09/20/19 10:05 Transferrin 102 mg/dL (202-364) L 09/20/19 10:05 Ferritin 1349 ng/mL (26-388) H 09/20/19 10:05 Total Bilirubin 0.40 mg/dL (0.2-1.0) 09/25/19 04:35 AST 31 Units/L (15-37) 09/25/19 04:35 ALT 34 Units/L (12-78) 09/25/19 04:35 Alkaline Phosphatase 217 Units/L (46-116) H 09/25/19 04:35 C-Reactive Protein 121.30 mg/L (0-3.0) H 09/23/19 05:20 Total Protein 5.9 g/dL (6.4-8.2) L 09/25/19 04:35 Albumin 2.4 g/dL (3.4-5.0) L 09/25/19 04:35 Globulin 3.5 g/dL (2.5-4.5) 09/25/19 04:35 Albumin/Globulin Ratio 0.7 Ratio (1.1-2.1) L 09/25/19 04:35 Amylase 27 Units/L (25-115) 09/23/19 05:20 Lipase 263 Units/L (73-393) 09/23/19 05:20 Carcinoembryonic Ag 3.4 ng/mL (0.0-3.0) H 09/20/19 12:25 CA 19-9 Antigen 435 U/mL (0-37) H 09/20/19 12:25 Vitamin B12 955 pg/mL (193-986) 09/20/19 10:05 Folate 19.2 ng/mL (>8.6) 09/20/19 10:05 Specimen Type Catherized urine 09/21/19 10:38 Urine Color Yellow (YELLOW) 09/21/19 10:38 Urine Appearance Clear (CLEAR) 09/21/19 10:38 Urine pH 5.0 (5.0 - 8.0) 09/21/19 10:38 Ur Specific [place] 1.020 (1.000-1.030) 09/21/19 10:38 Urine Protein 2+ (NEGATIVE) 09/21/19 10:38 Urine Glucose (UA) 1+ (NEGATIVE) 09/21/19 10:38 Urine Ketones Negative (NEGATIVE) 09/21/19 10:38 Urine Occult Blood 3+ (NEGATIVE) 09/21/19 10:38 Urine Nitrite Negative (NEGATIVE) 09/21/19 10:38 Urine Bilirubin Negative (NEGATIVE) 09/21/19 10:38 Urine Urobilinogen Normal (NORMAL) 09/21/19 10:38 Ur Leukocyte Esterase Negative (NEGATIVE) 09/21/19 10:38 Urine RBC 3-5 /HPF (0-3) A 09/21/19 10:38 Urine WBC 0-2 /HPF (0-5) 09/21/19 10:38 Ur Squamous Epith Cells Rare /HPF (NEGATIVE) 09/21/19 10:38 Ur Transition Epith Cell Few /HPF (NEGATIVE) 09/21/19 10:38 Amorphous Sediment 2+ /HPF (NEGATIVE) 09/21/19 10:38 Urine Bacteria Negative /HPF (NEGATIVE) 09/21/19 10:38 Granular Casts Few /LPF (NEGATIVE) 09/21/19 10:38 Urine Mucus Few /HPF (NEGATIVE) 09/21/19 10:38 Ur Culture Indicated? No/not indicated 09/21/19 10:38 Vancomycin Trough 11.3 ug/mL (15-20) L 09/23/19 08:58 Influenza Type A Ag Negative-presumptive (NEGATIVE) 09/20/19 10:15 Influenza Type B Ag Negative-presumptive (NEGATIVE) 09/20/19 10:15 Mycoplasma pneumon IgG Negative (NEGATIVE) 09/20/19 10:05 S. pyogenes (TEM-PCR) Not detected (NOT DETECT) 09/20/19 10:15 Plan (1) Sepsis associated hypotension: Status: Acute Plan: VANCOMYCIN 1G IV DAILY, ZOSYN 3.375G IV TID, CIPRO 400MG IV Q12H, NS AT 150ML/HR, LOVENOX 30MG SC DAILY (2) Acute pancreatitis: Status: Acute Qualifiers: Acute pancreatitis complication: unspecified Pancreatitis type: unspecified pancreatitis type Qualified Code(s): K85.90 - Acute pancreatitis without necrosis or infection, unspecified Plan: REPEAT ABDOMEN/PELVIS CT WITH CONTRAST, CONTINUE TO MONITOR (3) FARRAH (acute kidney injury): Status: Acute (4) Anemia: Status: Acute Qualifiers: Anemia type: iron deficiency Iron deficiency anemia type: unspecified iron deficiency Qualified Code(s): D50.9 - Iron deficiency anemia, unspecified Plan: CONTINUE TO MONITOR (5) Cyst and pseudocyst of pancreas: Status: Acute (6) Pancreatic duct obstruction: Status: Acute (7) Accelerated hypertension: Status: Acute
[2019-09-25] MEDS: ARTIFICIAL TEARS DROPS AFFEYE SCH ×4 (09:00→21:07)
[2019-09-25] MEDS ORDERED: NS 100 ML IV 100 ML IV ONE (09:09)
--- NOTE | 2019-09-25 10:25 | DR.PROGNOT ---
Hospital Progress Notes - Progress Note for Day of: Progress Note Date: 09/25/19 - Chief Complaint Chief Complaint: mild abdominal pain and SOB. tolerating diet well , no nausea or vomiting .LFT normal with Alk Ph 217 , , Amylase , Lipase are normal . WBC 13. Ca 19-9 high 435 CEA 3.4 .. afebrile . - Past Medical Family Social History Past Med/Fam/Surg Hx: No changes since H&P Allergies: Allergies niacin Allergy (Verified 09/20/19 10:09) - Review Of Systems ROS: No change since H&P - Vital Signs Vital Signs: Temperature 97.9 F Pulse Rate [Left Radial] 104 Pulse Rate 68 Respiratory Rate 20 Blood Pressure [Right Arm] 89/41 Blood Pressure [Left Arm] 128/61 Blood Pressure [Standing] 89/50 Blood Pressure [Sitting] 110/61 Blood Pressure [Lying] 109/52 Blood Pressure 183/77 O2 Sat by Pulse Oximetry 98 - Physical Exam Oriented: Normal Eyes: Normal Nose: Normal Throat: Normal Respiratory: Generalized, Diminished Cardiovascular: Normal : Normal GI:Auscultation: Decreased GI:Palpation: Normal GI: Tenderness: Other (soft abdomen with mild epigastric tenderness. BS+) Skin: Normal Musculoskeletal: Normal Psychiatric: Normal Mood Description: Calm Affect: Normal Speech Pattern: Clear, Appropriate - Laboratory and Diagnostics Result Diagrams: 09/25/19 04:35 09/25/19 04:35 Labs: 09/20/19 13:15 Blood Blood Culture - Preliminary 09/20/19 12:25 Blood Blood Culture - Preliminary Laboratory WBC 12.5 X10^3/uL (3.6-10.0) H 09/25/19 04:35 RBC 2.97 X10^6/uL (4.7-6.0) L 09/25/19 04:35 Hgb 9.2 g/dL (13.5-18.0) L 09/25/19 04:35 Hct 26.8 % (42.0-54.0) L 09/25/19 04:35 MCV 90.0 fL (80.0-100.0) 09/25/19 04:35 MCH 30.8 pg (27.0-34.0) 09/25/19 04:35 MCHC 34.2 g/dL (33.0-35.0) 09/25/19 04:35 RDW 13.6 % (11.6-16.5) 09/25/19 04:35 Plt Count 259 X10^3/uL (150.0-450.0) 09/25/19 04:35 Plt Count Comment Adequate (ADEQUATE) 09/24/19 04:40 MPV 8.0 fL (7.4-11.0) 09/25/19 04:35 Neut % (Auto) 77.6 % (42.0-75.0) H 09/25/19 04:35 Lymph % (Auto) 10.4 % (21.0-51.0) L 09/25/19 04:35 [place] % (Auto) 6.8 % (0.0-13.0) 09/25/19 04:35 Eos % (Auto) 4.6 % (0.9-2.9) H 09/25/19 04:35 Baso % (Auto) 0.6 % (0.2-1.0) 09/25/19 04:35 Neut # (Auto) 9.7 x10^3/uL (2.2-4.8) H 09/25/19 04:35 Lymph # (Auto) 1.3 X10^3/uL (1.3-2.9) 09/25/19 04:35 [place] # (Auto) 0.8 x10^3/uL (0.3-0.8) 09/25/19 04:35 Eos # (Auto) 0.6 x10^3/uL (0.0-0.2) H 09/25/19 04:35 Baso # (Auto) 0.1 X10^3/uL (0.0-0.1) 09/25/19 04:35 Absolute Nucleated RBC 0.0 /100WBC 09/25/19 04:35 Total Counted 100 09/24/19 04:40 Neutrophils % (Manual) 92 % (39-76) H 09/24/19 04:40 Band Neutrophils % 6 % (0-10) 09/21/19 05:42 Lymphocytes % (Manual) 5 % (13-43) L 09/24/19 04:40 Monocytes % (Manual) 1 % (4-9) L 09/24/19 04:40 Eosinophils % (Manual) 2 % (0-6) 09/24/19 04:40 Plt Morphology Comment Normal (NORMAL) 09/24/19 04:40 RBC Morphology Normal (NORMAL) 09/24/19 04:40 ESR 109 MM/HOUR (0-15) H 09/23/19 05:20 Sample Site Lrad 09/21/19 10:12 ABG pH 7.410 (7.35-7.45) 09/21/19 10:12 ABG pCO2 35.0 mmHg (35.0-45.0) 09/21/19 10:12 ABG pO2 101.0 mmHg (80.0-100.0) H 09/21/19 10:12 ABG HCO3 22.2 mmol/L (22-26) 09/21/19 10:12 ABG O2 Saturation 98.0 % (90-100) 09/21/19 10:12 ABG Base Excess -1.9 mmol/L (-2.0-2.0) 09/21/19 10:12 Damian Test Pos 09/21/19 10:12 A-a Gradient 55.0 mmHg 09/21/19 10:12 FiO2 28.0 09/21/19 10:12 Blood Gas Comments Pt katlyn well elj cdn 09/21/19 10:12 Sodium 142 mmol/L (136-145) 09/25/19 04:35 Corrected Sodium 142 mmol/L (136-145) 09/25/19 04:35 Potassium 3.6 mmol/L (3.5-5.1) 09/25/19 04:35 Chloride 109 mmol/L (98-107) H 09/25/19 04:35 Carbon Dioxide 20.2 mmol/L (21-32) L 09/25/19 04:35 BUN 12 mg/dL (7-18) 09/25/19 04:35 Creatinine 1.39 mg/dL (0.70-1.30) H 09/25/19 04:35 Est GFR (MDRD) Af Amer > 60 (>60) 09/25/19 04:35 Est GFR (MDRD) Non-Af 51 (>60) L 09/25/19 04:35 Glucose 112 mg/dL (65-99) H 09/25/19 04:35 Lactic Acid 1.5 mmol/L (0.4-2.0) 09/20/19 12:25 Calcium 8.2 mg/dL (8.5-10.1) L 09/25/19 04:35 Corrected Calcium 9.5 mg/dL (8.5-10.1) 09/25/19 04:35 Iron 19 ug/dL (50-175) L 09/20/19 10:05 Transferrin 102 mg/dL (202-364) L 09/20/19 10:05 Ferritin 1349 ng/mL (26-388) H 09/20/19 10:05 Total Bilirubin 0.40 mg/dL (0.2-1.0) 09/25/19 04:35 AST 31 Units/L (15-37) 09/25/19 04:35 ALT 34 Units/L (12-78) 09/25/19 04:35 Alkaline Phosphatase 217 Units/L (46-116) H 09/25/19 04:35 C-Reactive Protein 121.30 mg/L (0-3.0) H 09/23/19 05:20 Total Protein 5.9 g/dL (6.4-8.2) L 09/25/19 04:35 Albumin 2.4 g/dL (3.4-5.0) L 09/25/19 04:35 Globulin 3.5 g/dL (2.5-4.5) 09/25/19 04:35 Albumin/Globulin Ratio 0.7 Ratio (1.1-2.1) L 09/25/19 04:35 Amylase 27 Units/L (25-115) 09/23/19 05:20 Lipase 263 Units/L (73-393) 09/23/19 05:20 Carcinoembryonic Ag 3.4 ng/mL (0.0-3.0) H 09/20/19 12:25 CA 19-9 Antigen 435 U/mL (0-37) H 09/20/19 12:25 Vitamin B12 955 pg/mL (193-986) 09/20/19 10:05 Folate 19.2 ng/mL (>8.6) 09/20/19 10:05 Specimen Type Catherized urine 09/21/19 10:38 Urine Color Yellow (YELLOW) 09/21/19 10:38 Urine Appearance Clear (CLEAR) 09/21/19 10:38 Urine pH 5.0 (5.0 - 8.0) 09/21/19 10:38 Ur Specific [place] 1.020 (1.000-1.030) 09/21/19 10:38 Urine Protein 2+ (NEGATIVE) 09/21/19 10:38 Urine Glucose (UA) 1+ (NEGATIVE) 09/21/19 10:38 Urine Ketones Negative (NEGATIVE) 09/21/19 10:38 Urine Occult Blood 3+ (NEGATIVE) 09/21/19 10:38 Urine Nitrite Negative (NEGATIVE) 09/21/19 10:38 Urine Bilirubin Negative (NEGATIVE) 09/21/19 10:38 Urine Urobilinogen Normal (NORMAL) 09/21/19 10:38 Ur Leukocyte Esterase Negative (NEGATIVE) 09/21/19 10:38 Urine RBC 3-5 /HPF (0-3) A 09/21/19 10:38 Urine WBC 0-2 /HPF (0-5) 09/21/19 10:38 Ur Squamous Epith Cells Rare /HPF (NEGATIVE) 09/21/19 10:38 Ur Transition Epith Cell Few /HPF (NEGATIVE) 09/21/19 10:38 Amorphous Sediment 2+ /HPF (NEGATIVE) 09/21/19 10:38 Urine Bacteria Negative /HPF (NEGATIVE) 09/21/19 10:38 Granular Casts Few /LPF (NEGATIVE) 09/21/19 10:38 Urine Mucus Few /HPF (NEGATIVE) 09/21/19 10:38 Ur Culture Indicated? No/not indicated 09/21/19 10:38 Vancomycin Trough 11.3 ug/mL (15-20) L 09/23/19 08:58 Influenza Type A Ag Negative-presumptive (NEGATIVE) 09/20/19 10:15 Influenza Type B Ag Negative-presumptive (NEGATIVE) 09/20/19 10:15 Mycoplasma pneumon IgG Negative (NEGATIVE) 09/20/19 10:05 S. pyogenes (TEM-PCR) Not detected (NOT DETECT) 09/20/19 10:15 - Assessment and Plan 1: 1-subsiding acute pancreatitis possible distal pacreatic pseudocyst and underlining malignancy . subsided sepsis . gallstones . CKD. anemia . same IVF and ATB . DVT prophylaxis and close monitoring . for MRI o abdomen .. - Problem Patient Problems: Patient Problems Accelerated hypertension (Acute) I10 Pancreatic duct obstruction (Acute) K86.89 Cyst and pseudocyst of pancreas (Acute) K86.2, K86.3 Anemia (Acute) D64.9 FARRAH (acute kidney injury) (Acute) N17.9 Suspected COVID-19 virus infection (Acute) Z20.828 Acute pancreatitis (Acute) K85.90 Sepsis associated hypotension (Acute) A41.9, I95.9
[2019-09-25] MEDS: LOVENOX INJ 30 MG SYR SC SCH (11:00)
[2019-09-25] MEDS: PREVACID PO SCH ×2 (11:00→21:07)
[2019-09-25] MEDS: ZESTORETIC 20/25 MG PO SCH (11:00)
[2019-09-25] MEDS: CIPRO IV 400 MG PREMIX* 400 MG/200 ML IV.SOLN. IV SCH ×2 (11:00→21:07)
--- NOTE | 2019-09-25 11:48 | MRI ---
HISTORYABDOMINAL PAIN, SEPSIS, PANCREATITISSTUDYMRI ABDOMEN W/WO IV CONTRASTCOMPARISONCT 09/23/2019TECHNIQUEMRI of the abdomenwithout and with IV contrast is performed using standard sequences in multiple planes. 16 cc MultiHance IV contrast is administered.FINDINGSNo biliary ductal dilation or stone is seen. However, there is very minimal cholelithiasis. No evidence of cholecystitis. Pancreatic duct is dilated to approximately 7 millimeters in diameter. Possible very minimal edema is seen inferior to the pancreas that could be due to resolving acute pancreatitis.In the tail of the pancreas there is a complex fluid collection that extends into the splenic hilum. It is likely a pseudocyst with septations. There is no wall enhancement. No enhancing pancreatic mass is identified.Liver and spleen are normal in size. No focal hepatic abnormality is seen. No renal lesion is seen. Adrenal glands appear normal. Abdominal aorta is normal in size. No lymphadenopathy is seen.IMPRESSIONVery minimal acute pancreatitis changes near the head and proximal body. 5.8 x 4.0 cm pseudocyst in the tail of the pancreas and splenic hilum has septations. Continued CT monitoring of this pseudocyst is recommended to assure stability or resolution.Very minimal cholelithiasis without evidence of biliary size ductal stone or biliary ductal dilation.Electronically signed by: Ignacio Juarez (September 25, 2019 11:45:47)
[2019-09-25] MEDS: LIPITOR TAB 10 MG PO SCH (21:07)
[2019-09-25] MEDS: RESTORIL CAP 15 MG PO PRN (21:08)
[2019-09-26 05:07] LABS: BASOPHILS # (AUTO) 0.1 X10^3/uL (0.0-0.1); BASOPHILS % (AUTO) 0.5 % (0.2-1.0); EOSINOPHILS # (AUTO) 0.9 x10^3/uL (0.0-0.2); EOSINOPHILS % (AUTO) 5.3 % (0.9-2.9); HEMOGLOBIN 10.2 g/dL (13.5-18.0); LYMPHOCYTES # (AUTO) 1.5 X10^3/uL (1.3-2.9); LYMPHOCYTES % (AUTO) 8.5 % (21.0-51.0); MEAN CORPUSCULAR HEMOGLOBIN 30.6 pg (27.0-34.0); MEAN CORPUSCULAR VOLUME 89.9 fL (80.0-100.0); MEAN PLATELET VOLUME 8.2 fL (7.4-11.0); MONOCYTES % (AUTO) 5.9 % (0.0-13.0); NEUTROPHILS # (AUTO) 13.9 x10^3/uL (2.2-4.8); NEUTROPHILS % (AUTO) 79.8 % (42.0-75.0); PLATELET COUNT 302 X10^3/uL (150.0-450.0); RED BLOOD COUNT 3.33 X10^6/uL (4.7-6.0); RED CELL DISTRIBUTION WIDTH 13.8 % (11.6-16.5); WHITE BLOOD COUNT 17.4 X10^3/uL (3.6-10.0)
[2019-09-26 05:15] LABS: ALBUMIN 2.4 g/dL (3.4-5.0); CALCIUM 8.3 mg/dL (8.5-10.1); CARBON DIOXIDE 21.3 mmol/L (21-32); COR CA(FOR HYPOALB) 9.6 mg/dL (8.5-10.1); CREATININE 1.44 mg/dL (0.70-1.30); TOTAL PROTEIN 6.1 g/dL (6.4-8.2)
[2019-09-26] MEDS: ZOSYN VIAL 3.375 GRAMS 3.375 G in NS 100 ML IV + SPIKE MINIBAG* 100 ML IV SCH (05:49)
[2019-09-26] MEDS ORDERED: POTASSIUM CHLORIDE LIQ 20 MEQ UDC PO PRN (07:40)
[2019-09-26] MEDS ORDERED: MICRO K EXTEN CAP 10 MEQ PO PRN (07:40)
[2019-09-26] MEDS ORDERED: POTASSIUM CHL 60 MEQ/NS 0.45% 500 ML IV PRN (07:40)
[2019-09-26] MEDS ORDERED: KLOR-CON PO PRN (07:40)
[2019-09-26] MEDS ORDERED: K-RIDER 10 MEQ/NS 100 ML 10 MEQ/100 ML BAG IV PRN (07:40)
[2019-09-26] MEDS ORDERED: MAGNESIUM SULFATE 1 GRAM/100 mL PREMIX 1 GM/100 ML BAG IV PRN (07:40)
[2019-09-26] MEDS ORDERED: K-DUR TAB 20 MEQ PO PRN (07:40)
[2019-09-26] MEDS ORDERED: POTASSIUM CHL 40 MEQ/NS 0.45% 500 ML IV PRN (07:40)
[2019-09-26] MEDS: ARTIFICIAL TEARS DROPS AFFEYE SCH (08:35)
[2019-09-26] MEDS: PREVACID PO SCH (08:36)
[2019-09-26] MEDS: CIPRO IV 400 MG PREMIX* 400 MG/200 ML IV.SOLN. IV SCH (08:36)
[2019-09-26] MEDS: LOVENOX INJ 30 MG SYR SC SCH (08:36)
[2019-09-26] MEDS: ZESTORETIC 20/25 MG PO SCH (08:36)
--- NOTE | 2019-09-26 12:07 | W.DIS.FURT ---
Summary of Discharge Discharge Summary of Date Date of Exam: 09/26/19 Admission Date Date of Admission: 09/20/19 Admission Diagnosis Hospital Course: Mr. June is a 89y/o male with a PMH of HTN and GERD who was seen by his PCP due to weakness, abdominal pain and fever. Patient states he has been feeling sick for about 10 days. He reports generalized weakness, decreased appetite and diffuse abdominal pain. He describes the pain as achy in the abdomen that has been intermittent, does not get worse with eating. He also reports low grade fever, chills and rigors. He was given Rocephin shot along with oral antibiotics and advised to get labs done along with GB U/S and abdominal XR. He also had a COVID swab done while in clinic which is pending.Patient reports he started having bad shakes and chills today so his called 911 and he was brought to the ED. He reports not taking his BP medication today. He denies hx of CAD or COPD. No smoking hx. Denies any abdominal problems in the past. ED work-up included Abdominal Xr/CXR: no acute process , GB U/S: normal gallbladder and CBD, hepatic steatosis .CTAP: inflammatory stranding in the pancreas concerning for pancreatitis, fluid seen at the pancreatic tail that extends to the splenic capsule may represent pseudocyst/abscess. Cholelithiasis. Thickening at the ampulla may be reactive but cannot exclude underlying lesion. Labs: elevated WBC: 16.8, Cr: 2.10 Hgb: 9.9 Lactic acid: 1.5 CRP: 178 Blood cultures collected, Strep, Flu, Mycoplasma negative. COVID negative Patient's BP dropped while in ED, received 2L NS but SBP in 80s, started on dopamine drip. Received dose of Vancomycin. Patient was admitted to ICU with droplet precautions. Patient was given IV fluids for hydration and dopamine was weaned off. He was kept NPO and Dr. Trejo was consulted for further evaluation. Zosyn was added to cover anerobes and Gram neg. CDEA and CA 19-9 were ordered. Patient's diet was gradually advanced and his abdominal pain improved. Repeat CTAP showed stable pancreatitis and ps eudocyst. Patient's CEA was mildly elevated but CA 19-9 was 436 concerning for malignancy. MRI abdomen was done which showed dilated pancreatic duct and minimal pancreatic stranding. Patient was hemodynamically stable and tolerating diet. He was stable for discharge with outpatient follow up with Dr. Trejo and PCP Dr. Pittman. Patient will likely need a MRCP/ERCP for further diagnostic work-up. Vital Signs: Vital Signs (72 hours) 09/23/19 13:00 09/23/19 14:00 09/23/19 15:00 Temperature 97 F L 97.7 F 97.7 F Pulse Rate 77 72 70 Respiratory Rate 20 20 20 Blood Pressure 188/86 175/77 177/77 O2 Sat by Pulse Oximetry 100 100 100 09/23/19 16:00 09/23/19 16:40 09/23/19 17:00 Temperature 98.1 F 98.1 F Pulse Rate 72 73 76 Respiratory Rate 20 20 Blood Pressure 168/79 164/69 O2 Sat by Pulse Oximetry 100 100 98 09/23/19 18:00 09/23/19 19:00 09/23/19 20:00 Temperature 98 F 98.5 F Pulse Rate 74 69 70 Respiratory Rate 20 20 20 Blood Pressure 157/70 159/71 164/76 O2 Sat by Pulse Oximetry 100 98 98 09/23/19 21:00 09/23/19 21:20 09/23/19 22:00 Temperature Pulse Rate 77 74 74 Respiratory Rate 18 22 Blood Pressure 162/70 183/78 O2 Sat by Pulse Oximetry 99 99 99 09/23/19 23:00 09/24/19 00:00 09/24/19 01:00 Temperature 98.2 F Pulse Rate 69 80 115 H Respiratory Rate 20 20 30 H Blood Pressure 158/74 134/78 176/77 O2 Sat by Pulse Oximetry 98 97 96 09/24/19 01:05 09/24/19 02:00 09/24/19 03:00 Temperature Pulse Rate 133 H 75 75 Respiratory Rate 22 20 Blood Pressure 112/54 118/57 O2 Sat by Pulse Oximetry 93 L 98 99 09/24/19 04:00 09/24/19 05:00 09/24/19 06:00 Temperature 98.0 F Pulse Rate 79 84 75 Respiratory Rate 18 18 22 Blood Pressure 130/62 144/68 167/79 O2 Sat by Pulse Oximetry 100 100 99 09/24/19 07:00 09/24/19 08:00 09/24/19 09:00 Temperature 97.8 F 98.1 F Pulse Rate 90 86 80 Respiratory Rate 20 20 20 Blood Pressure 138/66 170/77 167/79 O2 Sat by Pulse Oximetry 100 100 100 09/24/19 10:00 09/24/19 10:22 09/24/19 11:00 Temperature 97.9 F Pulse Rate 80 96 H Respiratory Rate 20 20 Blood Pressure 162/77 171/80 O2 Sat by Pulse Oximetry 99 100 98 09/24/19 12:00 09/24/19 13:00 09/24/19 14:00 Temperature 97.9 F 97.8 F Pulse Rate 66 78 76 Respiratory Rate 20 20 20 Blood Pressure 160/74 166/77 166/74 O2 Sat by Pulse Oximetry 100 100 100 09/24/19 15:00 09/24/19 16:00 09/24/19 17:00 Temperature 98.4 F Pulse Rate 78 78 76 Respiratory Rate 20 20 20 Blood Pressure 169/78 169/78 173/86 O2 Sat by Pulse Oximetry 100 100 100 09/24/19 18:00 09/24/19 19:00 09/24/19 20:00 Temperature 98.0 F Pulse Rate 60 68 70 Respiratory Rate 20 18 20 Blood Pressure 164/74 168/77 167/76 O2 Sat by Pulse Oximetry 100 100 100 09/24/19 21:00 09/24/19 22:00 09/24/19 23:00 Temperature Pulse Rate 69 68 65 Respiratory Rate 18 18 20 Blood Pressure 165/78 164/80 149/78 O2 Sat by Pulse Oximetry 100 99 100 09/25/19 00:00 09/25/19 01:00 09/25/19 02:00 Temperature Pulse Rate 72 67 64 Respiratory Rate 20 18 18 Blood Pressure 172/82 165/76 174/77 O2 Sat by Pulse Oximetry 100 100 100 09/25/19 03:00 09/25/19 04:00 09/25/19 05:00 Temperature 97.9 F Pulse Rate 85 84 55 L Respiratory Rate 18 22 20 Blood Pressure 175/78 187/81 173/74 O2 Sat by Pulse Oximetry 100 97 100 09/25/19 06:00 09/25/19 07:00 09/25/19 08:00 Temperature 97.5 F L Pulse Rate 76 68 77 Respiratory Rate 20 20 20 Blood Pressure 168/78 183/77 141/82 O2 Sat by Pulse Oximetry 100 98 95 09/25/19 09:00 09/25/19 10:00 09/25/19 11:00 Temperature 97.5 F L 97.5 F L 97.5 F L Pulse Rate 62 60 62 Respiratory Rate 20 20 20 Blood Pressure 160/72 160/72 149/67 O2 Sat by Pulse Oximetry 98 98 100 09/25/19 12:00 09/25/19 13:00 09/25/19 14:00 Temperature 98.1 F Pulse Rate 66 68 62 Respiratory Rate 20 20 20 Blood Pressure 178/80 175/83 166/80 O2 Sat by Pulse Oximetry 100 100 100 09/25/19 15:00 09/25/19 16:00 09/25/19 17:00 Temperature 98.1 F Pulse Rate 56 L 55 L 98 H Respiratory Rate 20 18 24 Blood Pressure 159/73 131/62 177/73 O2 Sat by Pulse Oximetry 100 100 97 09/25/19 18:00 09/25/19 19:00 09/25/19 20:00 Temperature 97.7 F Pulse Rate 71 70 76 Respiratory Rate 20 18 20 Blood Pressure 186/79 145/67 192/80 O2 Sat by Pulse Oximetry 100 99 97 09/25/19 20:15 09/25/19 21:00 09/25/19 22:00 Temperature Pulse Rate 75 74 75 Respiratory Rate 20 18 Blood Pressure 179/89 175/74 O2 Sat by Pulse Oximetry 100 100 100 09/25/19 23:00 09/26/19 00:00 09/26/19 01:00 Temperature 98.0 F Pulse Rate 96 H 58 L 59 L Respiratory Rate 30 H 22 20 Blood Pressure 179/87 142/64 161/73 O2 Sat by Pulse Oximetry 99 100 100 09/26/19 02:00 09/26/19 03:00 09/26/19 04:00 Temperature 98.0 F Pulse Rate 60 75 70 Respiratory Rate 18 26 H 26 H Blood Pressure 120/58 172/79 163/74 O2 Sat by Pulse Oximetry 100 99 100 09/26/19 05:00 09/26/19 06:00 09/26/19 07:00 Temperature 98.8 F Pulse Rate 70 60 70 Respiratory Rate 22 18 20 Blood Pressure 149/69 145/63 166/57 O2 Sat by Pulse Oximetry 100 100 100 09/26/19 08:00 09/26/19 09:00 09/26/19 09:27 Temperature Pulse Rate 60 61 60 Respiratory Rate 20 20 18 Blood Pressure 163/74 150/65 145/63 O2 Sat by Pulse Oximetry 100 100 97 09/26/19 10:00 Temperature Pulse Rate 96 H Respiratory Rate 20 Blood Pressure 140/65 O2 Sat by Pulse Oximetry 96 Labs: Laboratory Last Values WBC 17.4 X10^3/uL (3.6-10.0) H 09/26/19 04:45 RBC 3.33 X10^6/uL (4.7-6.0) L 09/26/19 04:45 Hgb 10.2 g/dL (13.5-18.0) L 09/26/19 04:45 Hct 30.0 % (42.0-54.0) L 09/26/19 04:45 MCV 89.9 fL (80.0-100.0) 09/26/19 04:45 MCH 30.6 pg (27.0-34.0) 09/26/19 04:45 MCHC 34.0 g/dL (33.0-35.0) 09/26/19 04:45 RDW 13.8 % (11.6-16.5) 09/26/19 04:45 Plt Count 302 X10^3/uL (150.0-450.0) 09/26/19 04:45 Plt Count Comment Adequate (ADEQUATE) 09/24/19 04:40 MPV 8.2 fL (7.4-11.0) 09/26/19 04:45 Neut % (Auto) 79.8 % (42.0-75.0) H 09/26/19 04:45 Lymph % (Auto) 8.5 % (21.0-51.0) L 09/26/19 04:45 Mccreary % (Auto) 5.9 % (0.0-13.0) 09/26/19 04:45 Eos % (Auto) 5.3 % (0.9-2.9) H 09/26/19 04:45 Baso % (Auto) 0.5 % (0.2-1.0) 09/26/19 04:45 Neut # (Auto) 13.9 x10^3/uL (2.2-4.8) H 09/26/19 04:45 Lymph # (Auto) 1.5 X10^3/uL (1.3-2.9) 09/26/19 04:45 [place] # (Auto) 1.0 x10^3/uL (0.3-0.8) H 09/26/19 04:45 Eos # (Auto) 0.9 x10^3/uL (0.0-0.2) H 09/26/19 04:45 Baso # (Auto) 0.1 X10^3/uL (0.0-0.1) 09/26/19 04:45 Absolute Nucleated RBC 0.0 /100WBC 09/26/19 04:45 Total Counted 100 09/24/19 04:40 Neutrophils % (Manual) 92 % (39-76) H 09/24/19 04:40 Band Neutrophils % 6 % (0-10) 09/21/19 05:42 Lymphocytes % (Manual) 5 % (13-43) L 09/24/19 04:40 Monocytes % (Manual) 1 % (4-9) L 09/24/19 04:40 Eosinophils % (Manual) 2 % (0-6) 09/24/19 04:40 Plt Morphology Comment Normal (NORMAL) 09/24/19 04:40 RBC Morphology Normal (NORMAL) 09/24/19 04:40 ESR 109 MM/HOUR (0-15) H 09/23/19 05:20 Sample Site Lrad 09/21/19 10:12 ABG pH 7.410 (7.35-7.45) 09/21/19 10:12 ABG pCO2 35.0 mmHg (35.0-45.0) 09/21/19 10:12 ABG pO2 101.0 mmHg (80.0-100.0) H 09/21/19 10:12 ABG HCO3 22.2 mmol/L (22-26) 09/21/19 10:12 ABG O2 Saturation 98.0 % (90-100) 09/21/19 10:12 ABG Base Excess -1.9 mmol/L (-2.0-2.0) 09/21/19 10:12 Damian Test Pos 09/21/19 10:12 A-a Gradient 55.0 mmHg 09/21/19 10:12 FiO2 28.0 09/21/19 10:12 Blood Gas Comments Pt katlyn well elj cdn 09/21/19 10:12 Sodium 141 mmol/L (136-145) 09/26/19 04:45 Corrected Sodium 141 mmol/L (136-145) 09/26/19 04:45 Potassium 3.5 mmol/L (3.5-5.1) 09/26/19 04:45 Chloride 108 mmol/L (98-107) H 09/26/19 04:45 Carbon Dioxide 21.3 mmol/L (21-32) 09/26/19 04:45 BUN 12 mg/dL (7-18) 09/26/19 04:45 Creatinine 1.44 mg/dL (0.70-1.30) H 09/26/19 04:45 Est GFR (MDRD) Af Amer 60 (>60) 09/26/19 04:45 Est GFR (MDRD) Non-Af 49 (>60) L 09/26/19 04:45 Glucose 120 mg/dL (65-99) H 09/26/19 04:45 Lactic Acid 1.5 mmol/L (0.4-2.0) 09/20/19 12:25 Calcium 8.3 mg/dL (8.5-10.1) L 09/26/19 04:45 Corrected Calcium 9.6 mg/dL (8.5-10.1) 09/26/19 04:45 Magnesium 1.5 mg/dL (1.7-2.9) L 09/26/19 04:45 Iron 19 ug/dL (50-175) L 09/20/19 10:05 Transferrin 102 mg/dL (202-364) L 09/20/19 10:05 Ferritin 1349 ng/mL (26-388) H 09/20/19 10:05 Total Bilirubin 0.30 mg/dL (0.2-1.0) 09/26/19 04:45 AST 30 Units/L (15-37) 09/26/19 04:45 ALT 37 Units/L (12-78) 09/26/19 04:45 Alkaline Phosphatase 202 Units/L (46-116) H 09/26/19 04:45 C-Reactive Protein 121.30 mg/L (0-3.0) H 09/23/19 05:20 Total Protein 6.1 g/dL (6.4-8.2) L 09/26/19 04:45 Albumin 2.4 g/dL (3.4-5.0) L 09/26/19 04:45 Globulin 3.7 g/dL (2.5-4.5) 09/26/19 04:45 Albumin/Globulin Ratio 0.6 Ratio (1.1-2.1) L 09/26/19 04:45 Amylase 27 Units/L (25-115) 09/23/19 05:20 Lipase 263 Units/L (73-393) 09/23/19 05:20 Carcinoembryonic Ag 3.4 ng/mL (0.0-3.0) H 09/20/19 12:25 CA 19-9 Antigen 435 U/mL (0-37) H 09/20/19 12:25 Vitamin B12 955 pg/mL (193-986) 09/20/19 10:05 Folate 19.2 ng/mL (>8.6) 09/20/19 10:05 Specimen Type Catherized urine 09/21/19 10:38 Urine Color Yellow (YELLOW) 09/21/19 10:38 Urine Appearance Clear (CLEAR) 09/21/19 10:38 Urine pH 5.0 (5.0 - 8.0) 09/21/19 10:38 Ur Specific [place] 1.020 (1.000-1.030) 09/21/19 10:38 Urine Protein 2+ (NEGATIVE) 09/21/19 10:38 Urine Glucose (UA) 1+ (NEGATIVE) 09/21/19 10:38 Urine Ketones Negative (NEGATIVE) 09/21/19 10:38 Urine Occult Blood 3+ (NEGATIVE) 09/21/19 10:38 Urine Nitrite Negative (NEGATIVE) 09/21/19 10:38 Urine Bilirubin Negative (NEGATIVE) 09/21/19 10:38 Urine Urobilinogen Normal (NORMAL) 09/21/19 10:38 Ur Leukocyte Esterase Negative (NEGATIVE) 09/21/19 10:38 Urine RBC 3-5 /HPF (0-3) A 09/21/19 10:38 Urine WBC 0-2 /HPF (0-5) 09/21/19 10:38 Ur Squamous Epith Cells Rare /HPF (NEGATIVE) 09/21/19 10:38 Ur Transition Epith Cell Few /HPF (NEGATIVE) 09/21/19 10:38 Amorphous Sediment 2+ /HPF (NEGATIVE) 09/21/19 10:38 Urine Bacteria Negative /HPF (NEGATIVE) 09/21/19 10:38 Granular Casts Few /LPF (NEGATIVE) 09/21/19 10:38 Urine Mucus Few /HPF (NEGATIVE) 09/21/19 10:38 Ur Culture Indicated? No/not indicated 09/21/19 10:38 Vancomycin Trough 11.3 ug/mL (15-20) L 09/23/19 08:58 Influenza Type A Ag Negative-presumptive (NEGATIVE) 09/20/19 10:15 Influenza Type B Ag Negative-presumptive (NEGATIVE) 09/20/19 10:15 Mycoplasma pneumon IgG Negative (NEGATIVE) 09/20/19 10:05 S. pyogenes (TEM-PCR) Not detected (NOT DETECT) 09/20/19 10:15 Reason For Visit: SEPSIS Discharge Date Discharge Date: 09/26/19 Discharge Diagnosis All Active Problems (Updated 09/25/19 @ 08:53 by Stacia Smith) Accelerated hypertension (Acute) Pancreatic duct obstruction (Acute) Cyst and pseudocyst of pancreas (Acute) Anemia (Acute) FARRAH (acute kidney injury) (Acute) Suspected COVID-19 virus infection (Acute) Acute pancreatitis (Acute) Sepsis associated hypotension (Acute) Plan of Treatment: Continue with present treatment and follow up plan. Pt is to keep follow up appointment as instructed and take medications as ordered. Discharge Medications Discharge Medications: niacin Allergy (Verified 09/20/19 10:09) New Prescriptions ciprofloxacin HCl [Cipro] 500 mg PO BID 5 Days #10 tab 09/26/19 [Rx] lisinopril-hydrochlorothiazide 1 tab PO DAILY 30 Days #30 tab 09/26/19 [Rx] metronidazole 500 mg PO TID 5 Days #15 tab 09/26/19 [Rx] Follow up and Referral Follow Up: 1 Week (PCP) 1 Week (Surgery ) Discharge Disposition Discharge Disposition: Home Discharge Condition: Stable
[2019-09-26 13:32] VITALS: BP 161/70
== END 2019-09-26 13:15 | disposition home or self-care (01) | DRG 871 ==
LOC: ER 09:42 → ICU 12:14 → MED/SURG 09-21 21:38
PROVIDERS: ADMIT Internal Medicine; ATTEND Internal Medicine
DX: R26.89 Other abnormalities of gait and mobility; K86.3 Pseudocyst of pancreas; N17.8 Other acute kidney failure; K86.89 Other specified diseases of pancreas; D50.8 Other iron deficiency anemias; I10 Essential (primary) hypertension; I95.89 Other hypotension; K85.80 Other acute pancreatitis without necrosis or infection; Z66 Do not resuscitate; K86.2 Cyst of pancreas; R94.31 Abnormal electrocardiogram [ECG] [EKG]; A41.89 Other specified sepsis; K80.20 Calculus of gallbladder without cholecystitis without obstruction
CPT/HCPCS: 36415; 36600; 71010; 71045; 74022; 74176; 74177; 74183; 76705; 80053; 80202; 81001; 82150; 82378; 82565; 82607; 82728; 82746; 82803; 83540; 83605; 83690; 83735; 84466; 85025; 85652; 86140; 86301; 86316; 86738; 87040; 87400; 87651; 87804; 93005; 94640; 94760; 96365; 96367; 96374; 96375; 97116; 97162; 99285; A4222; J0744; J1265; J1650; J2060; J2543; J3370; J7030; J7040; J7050; J7060; J7613; P9047

== ENCOUNTER 2019-10-15 12:40 | Inpatient (IN) ==
--- NOTE | 2019-10-15 12:56 | DR.EXTPAIN ---
HPI Time seen Time Seen by Provider: 10/15/19 12:50 PCP Primary Care Physician: jorge HPI Comment HPI Comment: pt just doesn't feel completely back to normal Complaint/Symptoms Chief Complaint:: ems stated that dr patel was at the scene, and thought he was still septic and wanted him to come to the er to be seen. pt statewd he was in the hospital for the same thing a couple of weaks ago. pt stated he was not in any pain or distress Source History Provided: Patient Mode of arrival Mode of Arrival: EMS Timing Onset of Chief Complaint: 10/14/19 Context History of: None Associated signs and symptoms Associated Signs and Symptoms: Weakness PMH PMH Past Medical History: Yes Past Medical History: Dyslipidemia, GERD, Hypertension and Hypothyroidism Past Surgical History: Yes Surgical History: Ortho Surgery Family History History of Family Medical Conditions: Yes Social History Does patient currently use any type of tobacco product: No Have you used tobacco products in the last 12 months: No Type of Tobacco Use: None Does any household member use tobacco: No Alcohol Use: None Do you use any recreational Drugs:: No Lives With: Family Lives Where: Home Infectious screening In the last 2 months have you had wt loss of >10#?: NO Have you had fever, night sweats or hemotysis?: No Have you traveled outside the country in the last 6 months?: No Isolation: Standard ROS Review of Systems Constitutional: Weakness and Loss of Appetite Eyes: No Symptoms Reported ENTM: No Symptoms Reported Respiratoy: No Symptoms Reported Cardiovascular: No Symptoms Reported Gastrointestinal/Abdominal: No Symptoms Reported Genitourinary: No Symptoms Reported Neurological: No Symptoms Reported Musculoskeletal: No Symptoms Reported Integumentary: No Symptoms Reported Hematologic/Lymphatic: No Symptoms Reported Endocrine: No Symptoms Reported Psychiatric: No Symptoms Reported All Other Systems: Reviewed and Negative PE Vital Signs Vitals: Temperature 99.9 F Pulse Rate 75 Respiratory Rate 18 Blood Pressure [Right Arm] 89/41 Blood Pressure [Left Arm] 128/61 Blood Pressure [Standing] 89/50 Blood Pressure [Sitting] 110/61 Blood Pressure [Lying] 109/52 Blood Pressure 148/67 O2 Sat by Pulse Oximetry 99 General Limitations: No Limitations General Appearance: Alert and In No Apparent Distress ROR Labs Reviewed Result Diagrams: 10/15/19 13:07 10/15/19 13:07 Laboratory: WBC 19.2 X10^3/uL (3.6-10.0) H 10/15/19 13:07 RBC 2.77 X10^6/uL (4.7-6.0) L 10/15/19 13:07 Hgb 8.2 g/dL (13.5-18.0) L 10/15/19 13:07 Hct 24.6 % (42.0-54.0) L 10/15/19 13:07 MCV 88.8 fL (80.0-100.0) 10/15/19 13:07 MCH 29.7 pg (27.0-34.0) 10/15/19 13:07 MCHC 33.4 g/dL (33.0-35.0) 10/15/19 13:07 RDW 14.5 % (11.6-16.5) 10/15/19 13:07 Plt Count 227 X10^3/uL (150.0-450.0) 10/15/19 13:07 MPV 8.5 fL (7.4-11.0) 10/15/19 13:07 Neut % (Auto) 82.7 % (42.0-75.0) H 10/15/19 13:07 Lymph % (Auto) 12.1 % (21.0-51.0) L 10/15/19 13:07 [place] % (Auto) 3.8 % (0.0-13.0) 10/15/19 13:07 Eos % (Auto) 1.1 % (0.9-2.9) 10/15/19 13:07 Baso % (Auto) 0.3 % (0.2-1.0) 10/15/19 13:07 Neut # (Auto) 15.8 x10^3/uL (2.2-4.8) H 10/15/19 13:07 Lymph # (Auto) 2.3 X10^3/uL (1.3-2.9) 10/15/19 13:07 [place] # (Auto) 0.7 x10^3/uL (0.3-0.8) 10/15/19 13:07 Eos # (Auto) 0.2 x10^3/uL (0.0-0.2) 10/15/19 13:07 Baso # (Auto) 0.1 X10^3/uL (0.0-0.1) 10/15/19 13:07 Absolute Nucleated RBC 0.0 /100WBC 10/15/19 13:07 Sodium 138 mmol/L (136-145) 10/15/19 13:07 Corrected Sodium 140 mmol/L (136-145) 10/15/19 13:07 Potassium 2.4 mmol/L (3.5-5.1) L* 10/15/19 13:07 Chloride 100 mmol/L (98-107) 10/15/19 13:07 Carbon Dioxide 27.3 mmol/L (21-32) 10/15/19 13:07 BUN 45 mg/dL (7-18) H 10/15/19 13:07 Creatinine 2.63 mg/dL (0.70-1.30) H 10/15/19 13:07 Est GFR (MDRD) Af Amer 30 (>60) L 10/15/19 13:07 Est GFR (MDRD) Non-Af 25 (>60) L 10/15/19 13:07 Glucose 178 mg/dL (65-99) H 10/15/19 13:07 Calcium 7.6 mg/dL (8.5-10.1) L 10/15/19 13:07 Corrected Calcium 9.2 mg/dL (8.5-10.1) 10/15/19 13:07 Magnesium 1.7 mg/dL (1.7-2.9) 10/15/19 13:07 Total Bilirubin 0.40 mg/dL (0.2-1.0) 10/15/19 13:07 AST 41 Units/L (15-37) H 10/15/19 13:07 ALT 37 Units/L (12-78) 10/15/19 13:07 Alkaline Phosphatase 208 Units/L (46-116) H 10/15/19 13:07 Total Protein 6.2 g/dL (6.4-8.2) L 10/15/19 13:07 Albumin 2.0 g/dL (3.4-5.0) L 10/15/19 13:07 Globulin 4.2 g/dL (2.5-4.5) 10/15/19 13:07 Albumin/Globulin Ratio 0.5 Ratio (1.1-2.1) L 10/15/19 13:07 Amylase 32 Units/L (25-115) 10/15/19 13:07 Lipase 253 Units/L (73-393) 10/15/19 13:07 TSH 3rd Generation 3.720 uIU/mL (0.358-3.74) 10/15/19 13:07 Opioid Opioid Risk Tool Age (Bao box if 16-45): No History of Preadolescent Sexual Abuse: No Total: 0 Total Score Risk Category: Low Risk Copyright: Hudson STERLING predicting aberrant behaviors
[2019-10-15 13:13] LABS: BASOPHILS # (AUTO) 0.1 X10^3/uL (0.0-0.1); BASOPHILS % (AUTO) 0.3 % (0.2-1.0); EOSINOPHILS # (AUTO) 0.2 x10^3/uL (0.0-0.2); EOSINOPHILS % (AUTO) 1.1 % (0.9-2.9); HEMATOCRIT 24.6 % (42.0-54.0); HEMOGLOBIN 8.2 g/dL (13.5-18.0); LYMPHOCYTES # (AUTO) 2.3 X10^3/uL (1.3-2.9); LYMPHOCYTES % (AUTO) 12.1 % (21.0-51.0); MEAN CORPUSCULAR HEMOGLOBIN 29.7 pg (27.0-34.0); MEAN CORPUSCULAR HGB CONC 33.4 g/dL (33.0-35.0); MEAN CORPUSCULAR VOLUME 88.8 fL (80.0-100.0); MEAN PLATELET VOLUME 8.5 fL (7.4-11.0); MONOCYTES # (AUTO) 0.7 x10^3/uL (0.3-0.8); MONOCYTES % (AUTO) 3.8 % (0.0-13.0); NEUTROPHILS # (AUTO) 15.8 x10^3/uL (2.2-4.8); NEUTROPHILS % (AUTO) 82.7 % (42.0-75.0); PLATELET COUNT 227 X10^3/uL (150.0-450.0); RED BLOOD COUNT 2.77 X10^6/uL (4.7-6.0); RED CELL DISTRIBUTION WIDTH 14.5 % (11.6-16.5); WHITE BLOOD COUNT 19.2 X10^3/uL (3.6-10.0)
[2019-10-15 13:23] LABS: CALCIUM 7.6 mg/dL (8.5-10.1); CARBON DIOXIDE 27.3 mmol/L (21-32); CREATININE 2.63 mg/dL (0.70-1.30)
[2019-10-15 13:35] LABS: COR CA(FOR HYPOALB) 9.2 mg/dL (8.5-10.1); MAGNESIUM 1.7 mg/dL (1.7-2.9); TOTAL PROTEIN 6.2 g/dL (6.4-8.2); TSH (3RD GENERATION) 3.72 uIU/mL (0.358-3.74)
[2019-10-15 13:45] LABS: AMYLASE 32 Units/L (25-115); LIPASE 253 Units/L (73-393)
[2019-10-15] MEDS ORDERED: NS 1000 ML 1,000 ML with POTASSIUM CHLORIDE INJ 10 MEQ VIAL 10 MEQ IV SCH ×2 (15:00)
--- NOTE | 2019-10-15 15:50 | RAD ---
HISTORYLeukocytosisSTUDYCHEST, 1 [id number]/04/2020FINDINGSThe heart is within normal limits in size. The chely are normal. The lungs are free of acute alveolar infiltrates. No pleural effusions are identified. Bony thorax is unremarkable.IMPRESSIONNo significant abnormality identifiedElectronically signed by: PAMELA MARIE (October 15, 2019 15:48:43)
[2019-10-15] MEDS ORDERED: K-DUR TAB 20 MEQ PO ONE (16:27)
[2019-10-15] MEDS ORDERED: K-RIDER 10 MEQ/NS 100 ML 10 MEQ/100 ML BAG IV ONE (16:29)
[2019-10-15] MEDS ORDERED: NS 1000 ML 1,000 ML ONE (16:30)
[2019-10-15] MEDS: K-DUR TAB 20 MEQ PO SCH (16:35)
[2019-10-15] MEDS: K-RIDER 10 MEQ/NS 100 ML 10 MEQ/100 ML BAG IV SCH ×2 (16:36→16:39)
[2019-10-15] MEDS: NS 1000 ML 1,000 ML IV SCH (16:37)
[2019-10-15 17:55] VITALS: BMI 26.1
[2019-10-15] MEDS: ZOSYN VIAL 3.375 GRAMS 3.375 G in NS 100 ML IV + SPIKE MINIBAG* 100 ML IV SCH ×2 (17:57→23:00)
[2019-10-15] MEDS ORDERED: NS 250 ML IV 250 ML IV ONE (18:00)
[2019-10-15] MEDS: MAGNESIUM SULFATE 1 GRAM/100 mL PREMIX 1 GM/100 ML BAG IV PRN ×2 (18:12→19:44)
[2019-10-15] MEDS ORDERED: RESTORIL CAP 15 MG PO PRN (19:37)
[2019-10-15] MEDS ORDERED: VISTARIL PO PRN (19:48)
[2019-10-15] MEDS: PRAVASTATIN SODIUM 40 MG PO SCH (20:25)
[2019-10-15] MEDS: PREVACID PO SCH (20:28)
[2019-10-15] MEDS: NEURONTIN CAP 300 MG PO SCH (20:32)
[2019-10-15 23:39] LABS: BILIRUBIN,URINE NEGATIVE (NEGATIVE); BLOOD/HEMOGLOBIN,URINE 2+ (NEGATIVE); GLUCOSE, URINE NEGATIVE (NEGATIVE); KETONES,URINE NEGATIVE (NEGATIVE); LEUKOCYTE ESTERASE ,URINE NEGATIVE (NEGATIVE); NITRITES,URINE NEGATIVE (NEGATIVE); PROTEIN,URINE 2+ (NEGATIVE); UROBILINOGEN,URINE NORMAL (NORMAL)
[2019-10-15 23:43] LABS: AMORPHOUS SEDIMENT,UR 1+ /HPF (NEGATIVE); APPEARANCE,URINE CLEAR (CLEAR); BACTERIA,URINE NEGATIVE /HPF (NEGATIVE); COLOR,URINE YELLOW (YELLOW); RBC,URINE 0-2 /HPF (0-3); SQUAMOUS EPITHELIAL CELL,UR FEW /HPF (NEGATIVE)
[2019-10-16] MEDS: NS 1000 ML 1,000 ML IV SCH ×2 (00:33→05:18)
[2019-10-16] MEDS: NEURONTIN CAP 300 MG PO SCH ×3 (05:58→21:00)
[2019-10-16] MEDS: ZOSYN VIAL 3.375 GRAMS 3.375 G in NS 100 ML IV + SPIKE MINIBAG* 100 ML IV SCH ×3 (05:58→22:00)
[2019-10-16] MEDS: SYNTHROID 175 mcg TAB PO SCH (06:00)
[2019-10-16 06:31] LABS: BASOPHILS % (AUTO) 0.2 % (0.2-1.0); EOSINOPHILS # (AUTO) 0.2 x10^3/uL (0.0-0.2); EOSINOPHILS % (AUTO) 1.4 % (0.9-2.9); HEMATOCRIT 24.4 % (42.0-54.0); HEMOGLOBIN 8.3 g/dL (13.5-18.0); LYMPHOCYTES # (AUTO) 1.3 X10^3/uL (1.3-2.9); MEAN CORPUSCULAR HEMOGLOBIN 30.1 pg (27.0-34.0); MEAN CORPUSCULAR HGB CONC 34.2 g/dL (33.0-35.0); MEAN CORPUSCULAR VOLUME 88.1 fL (80.0-100.0); MEAN PLATELET VOLUME 9.3 fL (7.4-11.0); MONOCYTES # (AUTO) 0.7 x10^3/uL (0.3-0.8); MONOCYTES % (AUTO) 4.1 % (0.0-13.0); NEUTROPHILS # (AUTO) 13.9 x10^3/uL (2.2-4.8); NEUTROPHILS % (AUTO) 86.3 % (42.0-75.0); PLATELET COUNT 182 X10^3/uL (150.0-450.0); RED BLOOD COUNT 2.77 X10^6/uL (4.7-6.0); RED CELL DISTRIBUTION WIDTH 14.4 % (11.6-16.5); WHITE BLOOD COUNT 16.1 X10^3/uL (3.6-10.0)
[2019-10-16 06:40] LABS: ALBUMIN 1.8 g/dL (3.4-5.0); CALCIUM 7.5 mg/dL (8.5-10.1); CARBON DIOXIDE 27.3 mmol/L (21-32); COR CA(FOR HYPOALB) 9.3 mg/dL (8.5-10.1); CREATININE 2.25 mg/dL (0.70-1.30); MAGNESIUM 1.9 mg/dL (1.7-2.9); TOTAL PROTEIN 5.8 g/dL (6.4-8.2)
[2019-10-16 07:10] LABS: BAND NEUTROPHILS % 8 % (0-10)
[2019-10-16 07:11] LABS: PLATELET MORPHOLOGY COMMENT NORMAL (NORMAL)
[2019-10-16] MEDS: K-DUR TAB 20 MEQ PO SCH (08:50)
[2019-10-16] MEDS: PREVACID PO SCH ×2 (08:50→20:53)
[2019-10-16] MEDS ORDERED: LEVOTHYROXINE 175 MCG PO SCH (09:00)
--- NOTE | 2019-10-16 09:24 | DR.H&P ---
H&P History & Physical for Day of: H&P Date: 10/16/19 Chief Complaint Chief Complaint: weakness, confusion, chills Allergies Allergies Allergy/AdvReac Type Severity Reaction Status Date / Time niacin Allergy Verified 09/20/19 10:09 History of Present Illness History of Present Illness: Mr. June is a 89y/o male who presented with weakness and chills. Patient was discharged early this month after being admitted for pancreatitis with pseudocyst and pancreatic duct dilatation. CEA was also elevated. He has followed up with Dr. Trejo and PCP since then. He reports feeling weak since he's home and he continues to have episodes with rigors and chills. He denies N/V or abdominal pain. He reports having some diarrhea earlier but has resolved. He has been eating well. He states yesterday his family noticed he was confused, having shakes so he was brought in to ED. ED work-up: -CXR: no acute process -CT-brain done last week: negative for acute process - CTAP done last week: atrophy of pancreas with ductal dilation, slight increase in size of pseudocyst/fluid collection - Labs: elevated Alk Phos, normal lipase and total bilirubin, K: 2.8 Cr: 2.6 WBC 19 Lactate: 1.9 COVID-19 negative This morning, patient denies any symptoms besides weakness. He did have a temp of 100.5. Plan: consult Dr. Trejo, continue replacing K, will add to NS, continue Zosyn. Monitor labs. Past Medical History Past Medical History: Dyslipidemia, GERD, Hypertension and Hypothyroidism Past Surgical History Surgical History: Ortho Surgery and Other Social History Does patient currently use any type of tobacco product: No Have you used tobacco products in the last 12 months: No Type of Tobacco Use: None Does any household member use tobacco: No Alcohol Use: None Drug Use: None Medications Home Medications: niacin Allergy (Verified 09/20/19 10:09) Labs Result Diagrams: 10/16/19 05:45 10/16/19 05:45 Labs: Laboratory WBC 16.1 X10^3/uL (3.6-10.0) H 10/16/19 05:45 RBC 2.77 X10^6/uL (4.7-6.0) L 10/16/19 05:45 Hgb 8.3 g/dL (13.5-18.0) L 10/16/19 05:45 Hct 24.4 % (42.0-54.0) L 10/16/19 05:45 MCV 88.1 fL (80.0-100.0) 10/16/19 05:45 MCH 30.1 pg (27.0-34.0) 10/16/19 05:45 MCHC 34.2 g/dL (33.0-35.0) 10/16/19 05:45 RDW 14.4 % (11.6-16.5) 10/16/19 05:45 Plt Count 182 X10^3/uL (150.0-450.0) 10/16/19 05:45 Plt Count Comment Adequate (ADEQUATE) 10/16/19 05:45 MPV 9.3 fL (7.4-11.0) 10/16/19 05:45 Neut % (Auto) 86.3 % (42.0-75.0) H 10/16/19 05:45 Lymph % (Auto) 8.0 % (21.0-51.0) L 10/16/19 05:45 [place] % (Auto) 4.1 % (0.0-13.0) 10/16/19 05:45 Eos % (Auto) 1.4 % (0.9-2.9) 10/16/19 05:45 Baso % (Auto) 0.2 % (0.2-1.0) 10/16/19 05:45 Neut # (Auto) 13.9 x10^3/uL (2.2-4.8) H 10/16/19 05:45 Lymph # (Auto) 1.3 X10^3/uL (1.3-2.9) 10/16/19 05:45 [place] # (Auto) 0.7 x10^3/uL (0.3-0.8) 10/16/19 05:45 Eos # (Auto) 0.2 x10^3/uL (0.0-0.2) 10/16/19 05:45 Baso # (Auto) 0.0 X10^3/uL (0.0-0.1) 10/16/19 05:45 Absolute Nucleated RBC 0.0 /100WBC 10/16/19 05:45 Total Counted 100 10/16/19 05:45 Neutrophils % (Manual) 80 % (39-76) H 10/16/19 05:45 Band Neutrophils % 8 % (0-10) 10/16/19 05:45 Lymphocytes % (Manual) 9 % (13-43) L 10/16/19 05:45 Monocytes % (Manual) 3 % (4-9) L 10/16/19 05:45 Plt Morphology Comment Normal (NORMAL) 10/16/19 05:45 RBC Morphology Normal (NORMAL) 10/16/19 05:45 Sodium 140 mmol/L (136-145) 10/16/19 05:45 Corrected Sodium 141 mmol/L (136-145) 10/16/19 05:45 Potassium 2.8 mmol/L (3.5-5.1) L* 10/16/19 05:45 Chloride 103 mmol/L (98-107) 10/16/19 05:45 Carbon Dioxide 27.3 mmol/L (21-32) 10/16/19 05:45 BUN 41 mg/dL (7-18) H 10/16/19 05:45 Creatinine 2.25 mg/dL (0.70-1.30) H 10/16/19 05:45 Est GFR (MDRD) Af Amer 36 (>60) L 10/16/19 05:45 Est GFR (MDRD) Non-Af 29 (>60) L 10/16/19 05:45 Glucose 130 mg/dL (65-99) H 10/16/19 05:45 POC Glucose (mg/dL) 134 mg/dL (65-99) H 10/16/19 05:33 Lactic Acid 1.9 mmol/L (0.4-2.0) 10/15/19 16:37 Calcium 7.5 mg/dL (8.5-10.1) L 10/16/19 05:45 Corrected Calcium 9.3 mg/dL (8.5-10.1) 10/16/19 05:45 Magnesium 1.9 mg/dL (1.7-2.9) 10/16/19 05:45 Total Bilirubin 0.50 mg/dL (0.2-1.0) 10/16/19 05:45 AST 43 Units/L (15-37) H 10/16/19 05:45 ALT 39 Units/L (12-78) 10/16/19 05:45 Alkaline Phosphatase 271 Units/L (46-116) H 10/16/19 05:45 Total Protein 5.8 g/dL (6.4-8.2) L 10/16/19 05:45 Albumin 1.8 g/dL (3.4-5.0) L 10/16/19 05:45 Globulin 4.0 g/dL (2.5-4.5) 10/16/19 05:45 Albumin/Globulin Ratio 0.5 Ratio (1.1-2.1) L 10/16/19 05:45 Amylase 32 Units/L (25-115) 10/15/19 13:07 Lipase 253 Units/L (73-393) 10/15/19 13:07 TSH 3rd Generation 3.720 uIU/mL (0.358-3.74) 10/15/19 13:07 Specimen Type Clean catch urine 10/15/19 23:32 Urine Color Yellow (YELLOW) 10/15/19 23: Urine Appearance Clear (CLEAR) 10/15/19 23: Urine pH 5.0 (5.0 - 8.0) 10/15/19 23:32 Ur Specific [place] 1.010 (1.000-1.030) 10/15/19 23:32 Urine Protein 2+ (NEGATIVE) 10/15/19 23:32 Urine Glucose (UA) Negative (NEGATIVE) 10/15/19 23:32 Urine Ketones Negative (NEGATIVE) 10/15/19 23:32 Urine Occult Blood 2+ (NEGATIVE) 10/15/19 23: Urine Nitrite Negative (NEGATIVE) 10/15/19 23: Urine Bilirubin Negative (NEGATIVE) 10/15/19 23:32 Urine Urobilinogen Normal (NORMAL) 10/15/19 23:32 Ur Leukocyte Esterase Negative (NEGATIVE) 10/15/19 23:32 Urine RBC 0-2 /HPF (0-3) 10/15/19 23:32 Urine WBC None seen /HPF (0-5) 10/15/19 23:32 Ur Squamous Epith Cells Few /HPF (NEGATIVE) 10/15/19 23: Amorphous Sediment 1+ /HPF (NEGATIVE) 10/15/19 23: Urine Bacteria Negative /HPF (NEGATIVE) 10/15/19 23:32 Ur Culture Indicated? No/not indicated 10/15/19 23:32 SARS-CoV-2 (PCR) Negative (NEGATIVE) 10/15/19 14:54 Review of Systems Constitutional: Fever, Chills and Malaise Eyes: No Symptoms Reported ENT: No Symptoms Reported Respiratory: No Symptoms Reported Cardiovascular: No Symptoms Reported Gastrointestinal: Diarrhea Genitourinary: No Symptoms Reported Musculoskeletal: No Symptoms Reported Skin: Bruising and Ecchymosis Neurological: Confusion Physical Exam Vital Signs: Temperature 97.8 F Pulse Rate [Left Brachial] 70 Pulse Rate [Brachial] 75 Pulse Rate 75 Respiratory Rate 20 Blood Pressure [Right Arm] 138/63 Blood Pressure [Left Arm] 113/54 Blood Pressure [Standing] 89/50 Blood Pressure [Sitting] 110/61 Blood Pressure [Lying] 109/52 Blood Pressure 148/67 O2 Sat by Pulse Oximetry 98 Oriented: Normal Eyes: Normal Nose: Normal Throat: Normal Respiratory: Clear Throughout Cardiovascular: Normal Auscultation: Bowel Sounds: Normal Palpation: Normal Tenderness: Normal Skin: Bruising and Ecchymosis Musculoskeletal: Normal Psychiatric: Normal Mood Description: Calm Affect: Normal Speech Pattern: Clear and Appropriate Assessment/Plan (1) Pancreatic duct obstruction: Status: Acute (2) Cyst and pseudocyst of pancreas: Status: Acute (3) Hypokalemia: Status: Acute (4) Anemia: Qualifiers: Anemia type: iron deficiency Iron deficiency anemia type: unspecified iron deficiency Qualified Code(s): D50.9 - Iron deficiency anemia, unspecified Status: Acute (5) FARRAH (acute kidney injury): Status: Acute Review H&P Reviewed: Yes Patient was examined?: Yes
[2019-10-16] MEDS ORDERED: ATIVAN INJ 2 MG VIAL IVP NR (13:00)
[2019-10-16] MEDS: NS + KCL 40 MEQ/L 1,000 ML IV SCH (14:47)
[2019-10-16] MEDS: PRAVASTATIN SODIUM 40 MG PO SCH (20:54)
[2019-10-17] MEDS: NS + KCL 40 MEQ/L 1,000 ML IV SCH (00:49)
[2019-10-17 05:31] LABS: BASOPHILS # (AUTO) 0.1 X10^3/uL (0.0-0.1); BASOPHILS % (AUTO) 0.6 % (0.2-1.0); EOSINOPHILS # (AUTO) 0.3 x10^3/uL (0.0-0.2); EOSINOPHILS % (AUTO) 1.6 % (0.9-2.9); HEMATOCRIT 28.3 % (42.0-54.0); HEMOGLOBIN 9.4 g/dL (13.5-18.0); LYMPHOCYTES # (AUTO) 2.4 X10^3/uL (1.3-2.9); LYMPHOCYTES % (AUTO) 14.2 % (21.0-51.0); MEAN CORPUSCULAR HEMOGLOBIN 29.6 pg (27.0-34.0); MEAN CORPUSCULAR HGB CONC 33.3 g/dL (33.0-35.0); MEAN CORPUSCULAR VOLUME 89.1 fL (80.0-100.0); MEAN PLATELET VOLUME 10.2 fL (7.4-11.0); MONOCYTES # (AUTO) 0.6 x10^3/uL (0.3-0.8); MONOCYTES % (AUTO) 3.3 % (0.0-13.0); NEUTROPHILS # (AUTO) 13.6 x10^3/uL (2.2-4.8); NEUTROPHILS % (AUTO) 80.3 % (42.0-75.0); PLATELET COUNT 180 X10^3/uL (150.0-450.0); RED BLOOD COUNT 3.18 X10^6/uL (4.7-6.0); RED CELL DISTRIBUTION WIDTH 14.5 % (11.6-16.5); WHITE BLOOD COUNT 16.9 X10^3/uL (3.6-10.0)
[2019-10-17 05:36] LABS: ALANINE AMINOTRANSFERASE 38 Units/L (12-78); ALKALINE PHOSPHATASE 278 Units/L (46-116); ASPARTATE AMINO TRANSFERASE 49 Units/L (15-37); BLOOD UREA NITROGEN 39 mg/dL (7-18); CALCIUM 7.8 mg/dL (8.5-10.1); CARBON DIOXIDE 23.6 mmol/L (21-32); CHLORIDE 106 mmol/L (98-107); COR CA(FOR HYPOALB) 9.4 mg/dL (8.5-10.1); SODIUM 142 mmol/L (136-145); TOTAL PROTEIN 6.4 g/dL (6.4-8.2); eGFR NON BLACK RACES 34 (>60)
[2019-10-17] MEDS: NEURONTIN CAP 300 MG PO SCH ×2 (06:18→14:58)
[2019-10-17] MEDS: SYNTHROID 175 mcg TAB PO SCH (06:19)
[2019-10-17] MEDS: ZOSYN VIAL 3.375 GRAMS 3.375 G in NS 100 ML IV + SPIKE MINIBAG* 100 ML IV SCH ×2 (06:19→14:58)
[2019-10-17] MEDS: PREVACID PO SCH (08:38)
[2019-10-17] MEDS: K-DUR TAB 20 MEQ PO SCH (08:38)
[2019-10-17] MEDS ORDERED: NS 1000 ML 1,000 ML IV SCH (09:00)
--- NOTE | 2019-10-17 09:00 | MRI ---
ABDOMEN W/O CONClinical indication: Concern for common bile duct stone.Procedure: Multiplanar multi sequence MRI of the abdomen were obtained without the administration of intravenous contrast according to standard departmental protocol.Comparisons:October 11, 2019, September 25, 2019Findings:No significant iron or fat deposition in the liver or spleen. No significant ascites. Liver and spleen are normal in size and morphology. There is a T2 bright fluid collection that appears to communicate between the tail of the pancreas and the inferior tip of the spleen. This measures approximately 8.0 x 4.3 x 6.2 cm. Previously this measured 6.8 x 5.9 x 3.7 cm. Gallbladder is present. No gallstones. No filling defects within the common bile duct. Main pancreatic duct is again dilated measuring 7 mm. This terminates abruptly in the head of pancreas. There appears to be some narrowing of the distal common bile duct as well without definite complete occlusion. Intrinsic decreased T1 signal throughout the pancreas. Adrenal glands are grossly normal Kidneys demonstrate normal cortical medullary differentiation. No hydronephrosis. No suspicious lymph nodes.Impression:1. Examination is significantly limited by patient motion.2. Enlarging cystic structure involving the tail pancreas and lower tip of the spleen likely representing worsening pancreatic pseudocyst.3. Dilated main pancreatic duct which terminates abruptly in the head of pancreas as well as a markedly narrowed distal common bile duct. Although no definite pancreatic head mass is seen, this cannot be excluded and ERCP may be necessary.Electronically signed by: HAY TURNER (October 17, 2019 08:59:03)
[2019-10-17 17:09] VITALS: BP 152/68
--- NOTE | 2019-10-19 11:43 | W.DIS.FURT ---
Summary of Discharge Discharge Summary of Date Date of Exam: 10/17/19 Admission Date Date of Admission: 10/15/19 Admission Diagnosis Hospital Course: Mr. June is a 89y/o male who presented with weakness and chills. Patient was discharged early this month after being admitted for pancreatitis with pseudocyst and pancreatic duct dilatation. CA-19-9 was also elevated. He has followed up with Dr. Trejo and PCP since then. He reports feeling weak since he's home and he continues to have episodes with rigors and chills. He denies N/V or abdominal pain. He reports having some diarrhea earlier but has resolved. He has been eating well. He states yesterday his family noticed he was confused, having shakes so he was brought in to ED. ED work-up: CXR: no acute process, CT brain: negative for acute process. CTAP done last week: atrophy of pancreas with ductal dilation, slight increase in size of pseudocyst/fluid collection - Labs: elevated Alk Phos, normal lipase and total bilirubin, K: 2.8 Cr: 2.6 WBC 19 Lactate: 1.9 COVID-19 negative Patient was started on IV fluids and Zosyn. Potassium was replaced as per protocol. Dr. Trejo was consulted. MRCP was done which showed increase in size of the psuedocyst along with pancreatic ductal dilatation. ERCP was recommended for further evaluation. Due to our facility not having this procedure, it was discussed with the patient that he would need to be transferred to [facility]. Patient was accepted at [facility] and hand-off was given to the provider. Patient is hemodynamically stable for transfer. Vital Signs: Vital Signs (72 hours) 10/16/19 12:00 10/16/19 16:00 10/16/19 20:00 Temperature 98.5 F 99.4 F 97.1 F L Pulse Rate [Left Brachial] 76 80 67 Respiratory Rate 20 20 20 Blood Pressure [Left Arm] 133/59 100/44 113/64 O2 Sat by Pulse Oximetry 99 100 100 10/17/19 00:00 10/17/19 04:00 10/17/19 08:00 Temperature 97.8 F 97.6 F 97.6 F Pulse Rate [Left Brachial] 70 67 74 Respiratory Rate 30 H 24 18 Blood Pressure [Left Arm] 127/56 114/56 138/67 O2 Sat by Pulse Oximetry 99 97 98 10/17/19 12:00 10/17/19 16:00 Temperature 97.8 F 97.7 F Pulse Rate [Left Brachial] 74 79 Respiratory Rate 18 18 Blood Pressure [Left Arm] 136/59 152/68 O2 Sat by Pulse Oximetry 96 94 L Labs: Laboratory Last Values WBC 16.9 X10^3/uL (3.6-10.0) H 10/17/19 04:22 RBC 3.18 X10^6/uL (4.7-6.0) L 10/17/19 04:22 Hgb 9.4 g/dL (13.5-18.0) L 10/17/19 04:22 Hct 28.3 % (42.0-54.0) L 10/17/19 04:22 MCV 89.1 fL (80.0-100.0) 10/17/19 04:22 MCH 29.6 pg (27.0-34.0) 10/17/19 04:22 MCHC 33.3 g/dL (33.0-35.0) 10/17/19 04:22 RDW 14.5 % (11.6-16.5) 10/17/19 04:22 Plt Count 180 X10^3/uL (150.0-450.0) 10/17/19 04:22 Plt Count Comment Adequate (ADEQUATE) 10/16/19 05:45 MPV 10.2 fL (7.4-11.0) 10/17/19 04:22 Neut % (Auto) 80.3 % (42.0-75.0) H 10/17/19 04:22 Lymph % (Auto) 14.2 % (21.0-51.0) L 10/17/19 04:22 Esmeralda % (Auto) 3.3 % (0.0-13.0) 10/17/19 04:22 Eos % (Auto) 1.6 % (0.9-2.9) 10/17/19 04:22 Baso % (Auto) 0.6 % (0.2-1.0) 10/17/19 04:22 Neut # (Auto) 13.6 x10^3/uL (2.2-4.8) H 10/17/19 04:22 Lymph # (Auto) 2.4 X10^3/uL (1.3-2.9) 10/17/19 04:22 Esmeralda # (Auto) 0.6 x10^3/uL (0.3-0.8) 10/17/19 04:22 Eos # (Auto) 0.3 x10^3/uL (0.0-0.2) H 10/17/19 04:22 Baso # (Auto) 0.1 X10^3/uL (0.0-0.1) 10/17/19 04:22 Absolute Nucleated RBC 0.1 /100WBC 10/17/19 04:22 Total Counted 100 10/16/19 05:45 Neutrophils % (Manual) 80 % (39-76) H 10/16/19 05:45 Band Neutrophils % 8 % (0-10) 10/16/19 05:45 Lymphocytes % (Manual) 9 % (13-43) L 10/16/19 05:45 Monocytes % (Manual) 3 % (4-9) L 10/16/19 05:45 Plt Morphology Comment Normal (NORMAL) 10/16/19 05:45 RBC Morphology Normal (NORMAL) 10/16/19 05:45 Sodium 142 mmol/L (136-145) 10/17/19 04:22 Corrected Sodium TNP 10/17/19 04:22 Potassium 4.2 mmol/L (3.5-5.1) 10/17/19 04:22 Chloride 106 mmol/L (98-107) 10/17/19 04:22 Carbon Dioxide 23.6 mmol/L (21-32) 10/17/19 04:22 BUN 39 mg/dL (7-18) H 10/17/19 04:22 Creatinine 2.00 mg/dL (0.70-1.30) H 10/17/19 04:22 Est GFR (MDRD) Af Amer 41 (>60) L 10/17/19 04:22 Est GFR (MDRD) Non-Af 34 (>60) L 10/17/19 04:22 Glucose 105 mg/dL (65-99) H 10/17/19 04:22 POC Glucose (mg/dL) 134 mg/dL (65-99) H 10/16/19 05:33 Lactic Acid 1.9 mmol/L (0.4-2.0) 10/15/19 16:37 Calcium 7.8 mg/dL (8.5-10.1) L 10/17/19 04:22 Corrected Calcium 9.4 mg/dL (8.5-10.1) 10/17/19 04:22 Magnesium 1.9 mg/dL (1.7-2.9) 10/16/19 05:45 Total Bilirubin 0.70 mg/dL (0.2-1.0) 10/17/19 04:22 AST 49 Units/L (15-37) H 10/17/19 04:22 ALT 38 Units/L (12-78) 10/17/19 04:22 Alkaline Phosphatase 278 Units/L (46-116) H 10/17/19 04:22 Total Protein 6.4 g/dL (6.4-8.2) 10/17/19 04:22 Albumin 2.0 g/dL (3.4-5.0) L 10/17/19 04:22 Globulin 4.4 g/dL (2.5-4.5) 10/17/19 04:22 Albumin/Globulin Ratio 0.5 Ratio (1.1-2.1) L 10/17/19 04:22 Amylase 32 Units/L (25-115) 10/15/19 13:07 Lipase 253 Units/L (73-393) 10/15/19 13:07 TSH 3rd Generation 3.720 uIU/mL (0.358-3.74) 10/15/19 13:07 Specimen Type Clean catch urine 10/15/19 23:32 Urine Color Yellow (YELLOW) 10/15/19 23:32 Urine Appearance Clear (CLEAR) 10/15/19 23:32 Urine pH 5.0 (5.0 - 8.0) 10/15/19 23:32 Ur Specific [place] 1.010 (1.000-1.030) 10/15/19 23:32 Urine Protein 2+ (NEGATIVE) 10/15/19 23:32 Urine Glucose (UA) Negative (NEGATIVE) 10/15/19 23: Urine Ketones Negative (NEGATIVE) 10/15/19 23:32 Urine Occult Blood 2+ (NEGATIVE) 10/15/19 23:32 Urine Nitrite Negative (NEGATIVE) 10/15/19 23: Urine Bilirubin Negative (NEGATIVE) 10/15/19 23:32 Urine Urobilinogen Normal (NORMAL) 10/15/19 23:32 Ur Leukocyte Esterase Negative (NEGATIVE) 10/15/19 23:32 Urine RBC 0-2 /HPF (0-3) 10/15/19 23:32 Urine WBC None seen /HPF (0-5) 10/15/19 23:32 Ur Squamous Epith Cells Few /HPF (NEGATIVE) 10/15/19 23:32 Amorphous Sediment 1+ /HPF (NEGATIVE) 10/15/19 23:32 Urine Bacteria Negative /HPF (NEGATIVE) 10/15/19 23:32 Ur Culture Indicated? No/not indicated 10/15/19 23:32 SARS-CoV-2 (PCR) Negative (NEGATIVE) 10/15/19 14:54 Reason For Visit: HYPOKALEMIA, VOLUME DEPLETION, LEUKOCYTOSIS Discharge Date Discharge Date: 10/17/19 Discharge Diagnosis All Active Problems (Updated 10/22/19 @ 09:37 by Stacia Smith) Elevated CA 19-9 level (Acute) Pancreatic duct dilated (Acute) Pancreatic pseudocyst (Acute) Leukocytosis (Acute) Volume depletion (Acute) Hypokalemia (Acute) Plan of Treatment: Continue with present treatment and follow up plan. Pt is to keep follow up appointment as instructed and take medications as ordered. Discharge Medications Discharge Medications: niacin Allergy (Verified 09/20/19 10:09) Discharge Disposition Discharge Disposition: Transfer to [facility] Discharge Condition: Stable
== END 2019-10-17 17:00 | disposition short-term general hospital (02) | DRG 872 ==
LOC: ER 12:40 → MED/SURG 14:23
PROVIDERS: ADMIT Internal Medicine; ATTEND Internal Medicine
DX: E11.65 Type 2 diabetes mellitus with hyperglycemia; R10.84 Generalized abdominal pain; K86.3 Pseudocyst of pancreas; R97.0 Elevated carcinoembryonic antigen [CEA]; N17.8 Other acute kidney failure; R26.89 Other abnormalities of gait and mobility; K86.89 Other specified diseases of pancreas; Z91.81 History of falling; Z11.59 Encounter for screening for other viral diseases; K21.9 Gastro-esophageal reflux disease without esophagitis; E87.6 Hypokalemia; A41.51 Sepsis due to Escherichia coli [E. coli]; I10 Essential (primary) hypertension; R94.31 Abnormal electrocardiogram [ECG] [EKG]; E03.8 Other specified hypothyroidism; E86.9 Volume depletion, unspecified; D50.8 Other iron deficiency anemias; E78.2 Mixed hyperlipidemia
CPT/HCPCS: 36415; 71010; 71045; 74181; 80053; 81001; 82150; 83605; 83690; 83735; 84132; 84443; 85025; 87040; 87077; 87186; 87635; 93005; 96365; 96374; 96375; 97112; 97163; 97166; 99284; A4216; A4222; J2060; J2543; J3475; J3480; J7030; J7050; Q0177

== ENCOUNTER 2019-11-01 13:08 | Inpatient (IN) ==
[2019-11-01 13:49] LABS: BASOPHILS # (AUTO) 0.1 X10^3/uL (0.0-0.1); BASOPHILS % (AUTO) 0.6 % (0.2-1.0); EOSINOPHILS # (AUTO) 0.1 x10^3/uL (0.0-0.2); EOSINOPHILS % (AUTO) 0.5 % (0.9-2.9); HEMATOCRIT 22.8 % (42.0-54.0); HEMOGLOBIN 7.7 g/dL (13.5-18.0); LYMPHOCYTES # (AUTO) 1.8 X10^3/uL (1.3-2.9); LYMPHOCYTES % (AUTO) 13.8 % (21.0-51.0); MEAN CORPUSCULAR HEMOGLOBIN 29.7 pg (27.0-34.0); MEAN CORPUSCULAR HGB CONC 33.9 g/dL (33.0-35.0); MEAN CORPUSCULAR VOLUME 87.6 fL (80.0-100.0); MEAN PLATELET VOLUME 8.1 fL (7.4-11.0); MONOCYTES # (AUTO) 1.3 x10^3/uL (0.3-0.8); MONOCYTES % (AUTO) 10.1 % (0.0-13.0); NEUTROPHILS # (AUTO) 9.6 x10^3/uL (2.2-4.8); PLATELET COUNT 371 X10^3/uL (150.0-450.0); RED CELL DISTRIBUTION WIDTH 15.8 % (11.6-16.5); WHITE BLOOD COUNT 12.9 X10^3/uL (3.6-10.0)
[2019-11-01 14:08] LABS: ALANINE AMINOTRANSFERASE 22 Units/L (12-78); ALKALINE PHOSPHATASE 197 Units/L (46-116); ASPARTATE AMINO TRANSFERASE 40 Units/L (15-37); BLOOD UREA NITROGEN 25 mg/dL (7-18); CALCIUM 8.5 mg/dL (8.5-10.1); CARBON DIOXIDE 29.2 mmol/L (21-32); CHLORIDE 99 mmol/L (98-107); CKMB % 3.7 % (<4); COR CA(FOR HYPOALB) 10.1 mg/dL (8.5-10.1); COR NA(FOR HYPERGLY) 136 mmol/L (136-145); CREATINE KINASE 27 Units/L (39-308); CREATINE KINASE MB < 1.0 ng/mL (0-4.0); CREATININE 1.69 mg/dL (0.70-1.30); SODIUM 135 mmol/L (136-145); TOTAL PROTEIN 7.3 g/dL (6.4-8.2); TROPONIN I 0.06 ng/mL (0-1.5); eGFR NON BLACK RACES 41 (>60)
--- NOTE | 2019-11-01 14:08 | DR.AMS ---
HPI Time Seen Time Seen by Provider: 11/01/19 13:23 PCP Primary Care Physician: KARLO HPI Comment HPI Comment: Patient with cough x 4 days (prod of greenish sputum), feels weakness today, admits to having chills and had 103 fever per EMS. Dx with pancreatic CA 2 weeks ago, was discharged from the hospital last week. Denies any chest pain pressure or palpitations, denies any SHOB or abdominal symptoms. Complaint Chief Complaint:: PT C/O FEEL WEAK, COUGHING (X4 DAYS), CHILLS AND FEVER. PT STATES HE WAS RECENTLY DIAGNOSED WITH PANCREATIC CA WITH NO TREATMENTS DONE AT THIS TIME. COVID-19 Coronavirus risk:travel/contact w/high risk person: No Has patient experienced Coronavirus symptoms: Yes Coronavirus symptoms experienced: Coughing Source History Provided: Patient Mode of Arrival Mode of Arrival: EMS Timing Onset of Chief Complaint: 10/28/19 PMH PMH Past Medical History: Yes Past Medical History: Dyslipidemia, GERD, Hypertension and Hypothyroidism Past Medical History Comment: PANCREATIC CA Past Surgical History: Yes Surgical History: Ortho Surgery and Other Family History History of Family Medical Conditions: No Social History Does any household member use tobacco: No Alcohol Use: None Do you use any recreational Drugs:: No Lives With: Family Lives Where: Home Travel Risk Coronavirus risk:travel/contact w/high risk person: No Has patient experienced Coronavirus symptoms: Yes Coronavirus symptoms experienced: Coughing Infectious screening In the last 2 months have you had wt loss of >10#?: NO Have you had fever, night sweats or hemotysis?: No Have you traveled outside the country in the last 6 months?: No Isolation: Droplet ROS Review of Systems Constitutional: See HPI Eyes: No Symptoms Reported ENTM: No Symptoms Reported Respiratoy: See HPI and Productive Cough Cardiovascular: No Symptoms Reported Gastrointestinal/Abdominal: No Symptoms Reported Genitourinary: No Symptoms Reported Neurological: No Symptoms Reported Musculoskeletal: No Symptoms Reported Integumentary: No Symptoms Reported Hematologic/Lymphatic: No Symptoms Reported Endocrine: No Symptoms Reported Psychiatric: No Symptoms Reported All Other Systems: Reviewed and Negative PE Vitals Vital Signs: Temp Pulse Resp BP BP BP Pulse Ox 11/01/19 16:30 91 H 113/53 11/01/19 16:15 89 127/58 11/01/19 16:01 89 131/58 91 L 11/01/19 15:45 87 114/56 96 11/01/19 15:30 106/50 11/01/19 15:15 81 27 H 99/55 97 11/01/19 14:45 78 29 H 92/48 97 11/01/19 14:30 86 31 H 115/55 97 11/01/19 14:15 84 29 H 11/01/19 14:00 87 32 H 11/01/19 13:45 84 30 H 11/01/19 13:30 86 33 H 99/51 11/01/19 13:27 87 32 H 11/01/19 13:08 100.0 F H 87 20 101/55 94 L 10/17/19 16:00 152/68 10/15/19 16:50 138/63 General Limitations: Language Barrier General Appearance: Alert Head Head Exam: Normal Inspection Eyes Eye exam: Normal Appearance ENT ENT Exam: Normal Exam External Ear Exam: Normal External Inspection Nose Exam: Normal Nose Exam Mouth Exam: Normal Inspection Throat Exam: Normal Inspection Neck Neck Exam: Normal Inspection Chest Chest Inspection: Normal Inspection Respiratory Respiratory Exam: Normal Lung Sounds Bilat Cardiovascular Cardiovascular Exam: Regular Rate and Normal Rhythm Abdominal Exam Abdominal Exam: Soft and Tenderness; negative Normal Inspection (ecchymosis over abdomen noted), Guarding, Rebound and Rigidity Extremities Extremities Exam: Normal Inspection Back Back Exam: Normal Inspection Neurological Neurological Exam: Alert and Oriented X3 Psychological Psychiatric Exam: Normal Affect and Normal Mood Skin Skin Exam: Warm, Dry, Intact and Normal Color COURSE Treatment Treatment: Febrile pt with prod cough, leukocytosis 12.9, b/l infiltrates on CXR, Curb 65 = 2, spoke with Dr. Smith and she agrees to admit. Cultures drawn, empiric abx (Rocephin/Azithromycin) administered. Elevated creatinine, may be mild FARRAH, will give gentle hydration and check FeNa/FeUrea, serial creatinine. ROR Labs Reviewed Result Diagrams: 11/01/19 13:37 11/01/19 13:37 Laboratory: WBC 12.9 X10^3/uL (3.6-10.0) H 11/01/19 13:37 RBC 2.60 X10^6/uL (4.7-6.0) L 11/01/19 13:37 Hgb 7.7 g/dL (13.5-18.0) L 11/01/19 13:37 Hct 22.8 % (42.0-54.0) L 11/01/19 13:37 MCV 87.6 fL (80.0-100.0) 11/01/19 13:37 MCH 29.7 pg (27.0-34.0) 11/01/19 13:37 MCHC 33.9 g/dL (33.0-35.0) 11/01/19 13:37 RDW 15.8 % (11.6-16.5) 11/01/19 13:37 Plt Count 371 X10^3/uL (150.0-450.0) 11/01/19 13:37 Plt Count Comment Adequate (ADEQUATE) 11/01/19 13:37 MPV 8.1 fL (7.4-11.0) 11/01/19 13:37 Neut % (Auto) 75.0 % (42.0-75.0) 11/01/19 13:37 Lymph % (Auto) 13.8 % (21.0-51.0) L 11/01/19 13:37 [place] % (Auto) 10.1 % (0.0-13.0) 11/01/19 13:37 Eos % (Auto) 0.5 % (0.9-2.9) L 11/01/19 13:37 Baso % (Auto) 0.6 % (0.2-1.0) 11/01/19 13:37 Neut # (Auto) 9.6 x10^3/uL (2.2-4.8) H 11/01/19 13:37 Lymph # (Auto) 1.8 X10^3/uL (1.3-2.9) 11/01/19 13:37 [place] # (Auto) 1.3 x10^3/uL (0.3-0.8) H 11/01/19 13:37 Eos # (Auto) 0.1 x10^3/uL (0.0-0.2) 11/01/19 13:37 Baso # (Auto) 0.1 X10^3/uL (0.0-0.1) 11/01/19 13:37 Absolute Nucleated RBC 0.1 /100WBC 11/01/19 13:37 Plt Morphology Comment Normal (NORMAL) 11/01/19 13:37 RBC Morphology Abnormal (NORMAL) 11/01/19 13:37 Hypochromasia Slight A 11/01/19 13:37 Sodium 135 mmol/L (136-145) L 11/01/19 13:37 Corrected Sodium 136 mmol/L (136-145) 11/01/19 13:37 Potassium 4.3 mmol/L (3.5-5.1) 11/01/19 13:37 Chloride 99 mmol/L (98-107) 11/01/19 13:37 Carbon Dioxide 29.2 mmol/L (21-32) 11/01/19 13:37 BUN 25 mg/dL (7-18) H 11/01/19 13:37 Creatinine 1.69 mg/dL (0.70-1.30) H 11/01/19 13:37 Est GFR (MDRD) Af Amer 50 (>60) L 11/01/19 13:37 Est GFR (MDRD) Non-Af 41 (>60) L 11/01/19 13:37 Glucose 138 mg/dL (65-99) H 11/01/19 13:37 Calcium 8.5 mg/dL (8.5-10.1) 11/01/19 13:37 Corrected Calcium 10.1 mg/dL (8.5-10.1) 11/01/19 13:37 Total Bilirubin 0.20 mg/dL (0.2-1.0) 11/01/19 13:37 AST 40 Units/L (15-37) H 11/01/19 13:37 ALT 22 Units/L (12-78) 11/01/19 13:37 Alkaline Phosphatase 197 Units/L (46-116) H 11/01/19 13:37 Creatine Kinase 27 Units/L (39-308) L 11/01/19 13:37 CK-MB (CK-2) < 1.0 ng/mL (0-4.0) 11/01/19 13:37 CK/CKMB % Calc 3.7 % (<4) 11/01/19 13:37 Troponin I 0.06 ng/mL (0-1.5) 11/01/19 13:37 Total Protein 7.3 g/dL (6.4-8.2) 11/01/19 13:37 Albumin 2.0 g/dL (3.4-5.0) L 11/01/19 13:37 Globulin 5.3 g/dL (2.5-4.5) H 11/01/19 13:37 Albumin/Globulin Ratio 0.4 Ratio (1.1-2.1) L 11/01/19 13:37 Influenza Type A Ag Negative-presumptive (NEGATIVE) 11/01/19 15:10 Influenza Type B Ag Negative-presumptive (NEGATIVE) 11/01/19 15:10 Mycoplasma pneumon IgG Negative (NEGATIVE) 11/01/19 13:37 SARS-CoV-2 (PCR) Negative (NEGATIVE) 11/01/19 14:52 EKG Plessis: Normal Rhythm: NSR Block: None Hypertrophy: None ST: Normal Opioid Opioid Risk Tool Age (Bao box if 16-45): No History of Preadolescent Sexual Abuse: No Total: 0 Total Score Risk Category: Low Risk Copyright: Hudson STERLING predicting aberrant behaviors Diagnosis Discharge Problem: Pneumonia Qualifiers: Pneumonia type: due to unspecified organism Laterality: bilateral Lung location: lower lobe of lung Qualified Code(s): J18.9 - Pneumonia, unspecified organism
[2019-11-01 14:09] LABS: HYPOCHROMASIA SLIGHT; PLATELET MORPHOLOGY COMMENT NORMAL (NORMAL)
[2019-11-01] MEDS ORDERED: ZITHROMAX INJ 500 MG VIAL 500 MG in NS 250 ML IV 250 ML IV ONE (14:44)
[2019-11-01] MEDS ORDERED: ROCEPHIN VIAL 2 GRAMS IV SCH (15:00)
[2019-11-01 15:01] LABS: MYCOPLASMA PNEUMONIAE IGM AB NEGATIVE (NEGATIVE)
[2019-11-01] MEDS ORDERED: ROCEPHIN VIAL 2 GRAMS ONE (15:09)
[2019-11-01] MEDS ORDERED: ZITHROMAX INJ 500 MG VIAL IV ONE (15:09)
[2019-11-01] MEDS ORDERED: NS 100 ML IV + SPIKE MINIBAG* 100 ML IV ONE (15:09)
[2019-11-01] MEDS ORDERED: NS 250 ML IV 500 ML IV ONE (15:10)
[2019-11-01] MEDS ORDERED: NS 500 ML IV 500 ML IV ONE (16:52)
[2019-11-01] MEDS ORDERED: LR 1000 ML IV 1,000 ML IV SCH (17:00)
[2019-11-01] MEDS: DUONEB 0.5 MG/3 MG (3 mL) NEB SCH (20:00)
[2019-11-01] MEDS ORDERED: SALINE 3% 15 ML NEB TX NEB ONE (20:00)
[2019-11-01] MEDS: PRAVACHOL PO SCH (20:32)
[2019-11-01] MEDS: RESTORIL CAP 15 MG PO PRN (20:32)
[2019-11-01] MEDS: NEURONTIN CAP 300 MG PO SCH (21:30)
[2019-11-02] MEDS ORDERED: TYLENOL 325 MG TAB PO ONE (00:35)
[2019-11-02] MEDS: SYNTHROID 175 mcg TAB PO SCH (06:07)
[2019-11-02] MEDS: NEURONTIN CAP 300 MG PO SCH ×3 (06:07→21:05)
[2019-11-02 06:42] LABS: BASOPHILS # (AUTO) 0.1 X10^3/uL (0.0-0.1); BASOPHILS % (AUTO) 0.5 % (0.2-1.0); EOSINOPHILS # (AUTO) 0.1 x10^3/uL (0.0-0.2); EOSINOPHILS % (AUTO) 0.7 % (0.9-2.9); LYMPHOCYTES % (AUTO) 17.1 % (21.0-51.0); MEAN CORPUSCULAR HEMOGLOBIN 29.8 pg (27.0-34.0); MEAN CORPUSCULAR HGB CONC 33.7 g/dL (33.0-35.0); MEAN CORPUSCULAR VOLUME 88.3 fL (80.0-100.0); MEAN PLATELET VOLUME 8.8 fL (7.4-11.0); MONOCYTES # (AUTO) 1.6 x10^3/uL (0.3-0.8); MONOCYTES % (AUTO) 13.3 % (0.0-13.0); NEUTROPHILS # (AUTO) 8.2 x10^3/uL (2.2-4.8); NEUTROPHILS % (AUTO) 68.4 % (42.0-75.0); PLATELET COUNT 330 X10^3/uL (150.0-450.0); RED BLOOD COUNT 2.26 X10^6/uL (4.7-6.0)
[2019-11-02 06:44] LABS: ALBUMIN 1.8 g/dL (3.4-5.0); CALCIUM 8.5 mg/dL (8.5-10.1); CARBON DIOXIDE 27.4 mmol/L (21-32); COR CA(FOR HYPOALB) 10.3 mg/dL (8.5-10.1); CREATININE 1.55 mg/dL (0.70-1.30); MAGNESIUM 1.7 mg/dL (1.7-2.9); TOTAL PROTEIN 6.7 g/dL (6.4-8.2)
[2019-11-02 06:48] LABS: HEMOGLOBIN 6.7 g/dL (13.5-18.0)
[2019-11-02 06:55] LABS: PLATELET MORPHOLOGY COMMENT NORMAL (NORMAL)
[2019-11-02 06:56] LABS: HYPOCHROMASIA 1+
[2019-11-02] MEDS ORDERED: NS 500 ML IV 500 ML IV ONE (08:13)
[2019-11-02 08:14] LABS: HEMATOCRIT 19.2 % (42.0-54.0); HEMOGLOBIN 6.4 g/dL (13.5-18.0)
--- NOTE | 2019-11-02 08:28 | DR.H&P ---
H&P History & Physical for Day of: H&P Date: 11/02/19 Chief Complaint Chief Complaint: weakness, chills, cough Allergies Allergies Allergy/AdvReac Type Severity Reaction Status Date / Time niacin Allergy Verified 09/20/19 10:09 History of Present Illness History of Present Illness: Mr. June is a 89y/o male with a recent diagnosis of pancreatic cancer. He has had recurrent admissions here for sepsis and during last admission he was transferred to [facility] for ERCP and biopsy of the mass noted in the pancreatic duct. Biopsy was done there and it did show malignancy. Patient had initially decided to do surgery but then decided to do chemo/radiation instead. He is waiting on his referral to oncologist Dr. Reyes and has not started chemo yet. During these multiple admissions, patient continues to be weak with poor appetite. states patient is not able to walk due to his weakness. He has also been having rigors and chills. He has some productive cough. He has been febrile. ED work-up - Febrile and hypotensive - CXR concerning for pneumonia - Labs: WBC 12.9 Hgb: 7.7 Cr: 1.69 Na: 135 mild elevation of Alk phos Received Rocephin and Azithromycin, IVF Overnight, patient remained febrile, Tmax 103, afebrile this AM. Hgb noted to be 6.7. Cr trending down. Plan: repeat H/H, if < 7 transfuse 2 units PRBCs, discussed with patient and . Switch Rocephin and Zosyn, continue azithromycin, continue IVF. Follow cultures. Monitor AM Labs. Lactic acid pending. Past Medical History Past Medical History: Dyslipidemia, GERD, Hypertension and Hypothyroidism Past Surgical History Surgical History: Ortho Surgery and Other Social History Does patient currently use any type of tobacco product: No Have you used tobacco products in the last 12 months: No Type of Tobacco Use: None Does any household member use tobacco: No Alcohol Use: None Medications Home Medications: niacin Allergy (Verified 09/20/19 10:09) CONTINUE taking the following medications amlodipine 5 mg PO DAILY 11/01/19 [History] cefpodoxime 200 mg PO BID 11/01/19 [History] gabapentin 300 mg PO TID 11/01/19 [History] lisinopril 20 mg PO DAILY 11/01/19 [History] Labs Result Diagrams: 11/02/19 07:55 11/02/19 05:48 Labs: 11/01/19 21:45 Sputum - Expectorated Sputum - Final Laboratory WBC 12.0 X10^3/uL (3.6-10.0) H 11/02/19 05:48 RBC 2.26 X10^6/uL (4.7-6.0) L 11/02/19 05:48 Hgb 6.4 g/dL (13.5-18.0) L* 11/02/19 07:55 Hct 19.2 % (42.0-54.0) L* 11/02/19 07:55 MCV 88.3 fL (80.0-100.0) 11/02/19 05:48 MCH 29.8 pg (27.0-34.0) 11/02/19 05:48 MCHC 33.7 g/dL (33.0-35.0) 11/02/19 05:48 RDW 16.0 % (11.6-16.5) 11/02/19 05:48 Plt Count 330 X10^3/uL (150.0-450.0) 11/02/19 05:48 Plt Count Comment Adequate (ADEQUATE) 11/02/19 05:48 MPV 8.8 fL (7.4-11.0) 11/02/19 05:48 Neut % (Auto) 68.4 % (42.0-75.0) 11/02/19 05:48 Lymph % (Auto) 17.1 % (21.0-51.0) L 11/02/19 05:48 Evans % (Auto) 13.3 % (0.0-13.0) H 11/02/19 05:48 Eos % (Auto) 0.7 % (0.9-2.9) L 11/02/19 05:48 Baso % (Auto) 0.5 % (0.2-1.0) 11/02/19 05:48 Neut # (Auto) 8.2 x10^3/uL (2.2-4.8) H 11/02/19 05:48 Lymph # (Auto) 2.0 X10^3/uL (1.3-2.9) 11/02/19 05:48 Evans # (Auto) 1.6 x10^3/uL (0.3-0.8) H 11/02/19 05:48 Eos # (Auto) 0.1 x10^3/uL (0.0-0.2) 11/02/19 05:48 Baso # (Auto) 0.1 X10^3/uL (0.0-0.1) 11/02/19 05:48 Absolute Nucleated RBC 0.0 /100WBC 11/02/19 05:48 Plt Morphology Comment Normal (NORMAL) 11/02/19 05:48 RBC Morphology Abnormal (NORMAL) 11/02/19 05:48 Hypochromasia 1+ A 11/02/19 05:48 Sodium 135 mmol/L (136-145) L 11/02/19 05:48 Corrected Sodium 136 mmol/L (136-145) 11/02/19 05:48 Potassium 4.1 mmol/L (3.5-5.1) 11/02/19 05:48 Chloride 100 mmol/L (98-107) 11/02/19 05:48 Carbon Dioxide 27.4 mmol/L (21-32) 11/02/19 05:48 BUN 28 mg/dL (7-18) H 11/02/19 05:48 Creatinine 1.55 mg/dL (0.70-1.30) H 11/02/19 05:48 Est GFR (MDRD) Af Amer 55 (>60) L 11/02/19 05:48 Est GFR (MDRD) Non-Af 45 (>60) L 11/02/19 05:48 Glucose 122 mg/dL (65-99) H 11/02/19 05:48 Calcium 8.5 mg/dL (8.5-10.1) 11/02/19 05:48 Corrected Calcium 10.3 mg/dL (8.5-10.1) H 11/02/19 05:48 Magnesium 1.7 mg/dL (1.7-2.9) 11/02/19 05:48 Total Bilirubin 0.20 mg/dL (0.2-1.0) 11/02/19 05:48 AST 37 Units/L (15-37) 11/02/19 05:48 ALT 24 Units/L (12-78) 11/02/19 05:48 Alkaline Phosphatase 174 Units/L (46-116) H 11/02/19 05:48 Creatine Kinase 27 Units/L (39-308) L 11/01/19 13:37 CK-MB (CK-2) < 1.0 ng/mL (0-4.0) 11/01/19 13:37 CK/CKMB % Calc 3.7 % (<4) 11/01/19 13:37 Troponin I 0.06 ng/mL (0-1.5) 11/01/19 13:37 Total Protein 6.7 g/dL (6.4-8.2) 11/02/19 05:48 Albumin 1.8 g/dL (3.4-5.0) L 11/02/19 05:48 Globulin 4.9 g/dL (2.5-4.5) H 11/02/19 05:48 Albumin/Globulin Ratio 0.4 Ratio (1.1-2.1) L 11/02/19 05:48 Influenza Type A Ag Negative-presumptive (NEGATIVE) 11/01/19 15:10 Influenza Type B Ag Negative-presumptive (NEGATIVE) 11/01/19 15:10 Mycoplasma pneumon IgG Negative (NEGATIVE) 11/01/19 13:37 SARS-CoV-2 (PCR) Negative (NEGATIVE) 11/01/19 14:52 Review of Systems Constitutional: Fever, Weakness and Malaise Eyes: No Symptoms Reported ENT: No Symptoms Reported Respiratory: Cough, Shortness of Breath and Sputum Gastrointestinal: No Symptoms Reported Musculoskeletal: Back Pain Skin: No Symptoms Reported Neurological: Confusion Physical Exam Vital Signs: Temperature 99.6 F Pulse Rate [Right Brachial] 84 Pulse Rate 89 Respiratory Rate 22 Blood Pressure [Right Arm] 99/51 Blood Pressure [Left Arm] 152/68 Blood Pressure 121/52 O2 Sat by Pulse Oximetry 95 Oriented: Normal Ear: Normal Nose: Normal Throat: Dry Respiratory: Diminished Throughout Cardiovascular: Normal Auscultation: Bowel Sounds: Increased Palpation: Normal Tenderness: Normal Skin: Normal Musculoskeletal: Normal Psychiatric: Normal Mood Description: Calm Affect: Normal Speech Pattern: Clear and Appropriate Assessment/Plan (1) Pneumonia: Qualifiers: Laterality: bilateral Lung location: lower lobe of lung Pneumonia type: due to unspecified organism Qualified Code(s): J18.9 - Pneumonia, unspecified organism Status: Acute (2) Pancreatic cancer: Qualifiers: Pancreatic malignancy location: unspecified Qualified Code(s): C25.9 - Malignant neoplasm of pancreas, unspecified Status: Acute (3) Anemia: Qualifiers: Anemia type: unspecified type Qualified Code(s): D64.9 - Anemia, unspecified Status: Acute (4) Hypotension: Qualifiers: Hypotension type: hypotension due to hypovolemia Qualified Code(s): I95.89 - Other hypotension; E86.1 - Hypovolemia Status: Acute (5) FARRAH (acute kidney injury): Status: Acute Review H&P Reviewed: Yes Patient was examined?: Yes
[2019-11-02] MEDS ORDERED: NORVASC TAB 5 MG PO SCH (09:00)
[2019-11-02] MEDS ORDERED: ROCEPHIN VIAL 2 GRAMS 2 G in NS 100 ML IV + SPIKE MINIBAG* 100 ML IV SCH (09:00)
[2019-11-02] MEDS ORDERED: ZESTRIL TAB 20 MG PO SCH (09:00)
[2019-11-02 09:19] LABS: BILIRUBIN,URINE NEGATIVE (NEGATIVE); BLOOD/HEMOGLOBIN,URINE 1+ (NEGATIVE); GLUCOSE, URINE NEGATIVE (NEGATIVE); KETONES,URINE NEGATIVE (NEGATIVE); LEUKOCYTE ESTERASE ,URINE 1+ (NEGATIVE); NITRITES,URINE NEGATIVE (NEGATIVE); PROTEIN,URINE 2+ (NEGATIVE); UROBILINOGEN,URINE NORMAL (NORMAL)
[2019-11-02] MEDS: ZOSYN VIAL 3.375 GRAMS 3.375 G in NS 100 ML IV + SPIKE MINIBAG* 100 ML IV SCH ×3 (09:21→21:30)
[2019-11-02] MEDS: ZITHROMAX INJ 500 MG VIAL 250 MG in D5W 250 ML IV 250 ML IV SCH (09:21)
[2019-11-02 09:22] LABS: SODIUM,URINE 62 mmol/L (40-220)
[2019-11-02 09:23] LABS: APPEARANCE,URINE HAZY (CLEAR); COLOR,URINE YELLOW (YELLOW)
[2019-11-02 09:26] LABS: BACTERIA,URINE 1+ /HPF (NEGATIVE); GRANULAR CASTS,URINE FEW /LPF (NEGATIVE); MUCUS,URINE MODERATE /HPF (NEGATIVE); SQUAMOUS EPITHELIAL CELL,UR FEW /HPF (NEGATIVE)
[2019-11-02] MEDS: NS 1000 ML 1,000 ML IV SCH ×2 (09:42→23:20)
[2019-11-02] MEDS: DUONEB 0.5 MG/3 MG (3 mL) NEB SCH ×4 (09:45→21:08)
[2019-11-02] MEDS: TYLENOL 325 MG TAB PO PRN (10:41)
[2019-11-02] MEDS ORDERED: NS 250 ML IV 250 ML IV ONE (10:45)
[2019-11-02 12:41] VITALS: BMI 21.4
[2019-11-02 19:27] LABS: HEMATOCRIT 26.1 % (42.0-54.0); HEMOGLOBIN 8.9 g/dL (13.5-18.0)
[2019-11-02] MEDS: PRAVACHOL PO SCH (20:10)
[2019-11-03] MEDS: NEURONTIN CAP 300 MG PO SCH ×3 (05:33→21:01)
[2019-11-03] MEDS: ZOSYN VIAL 3.375 GRAMS 3.375 G in NS 100 ML IV + SPIKE MINIBAG* 100 ML IV SCH ×3 (05:33→21:01)
[2019-11-03] MEDS: SYNTHROID 175 mcg TAB PO SCH (05:33)
[2019-11-03 07:25] LABS: BASOPHILS % (AUTO) 0.4 % (0.2-1.0); EOSINOPHILS # (AUTO) 0.4 x10^3/uL (0.0-0.2); EOSINOPHILS % (AUTO) 3.7 % (0.9-2.9); HEMATOCRIT 26.6 % (42.0-54.0); HEMOGLOBIN 9.1 g/dL (13.5-18.0); LYMPHOCYTES # (AUTO) 1.3 X10^3/uL (1.3-2.9); LYMPHOCYTES % (AUTO) 11.7 % (21.0-51.0); MEAN CORPUSCULAR HEMOGLOBIN 29.2 pg (27.0-34.0); MEAN CORPUSCULAR HGB CONC 34.2 g/dL (33.0-35.0); MEAN CORPUSCULAR VOLUME 85.5 fL (80.0-100.0); MEAN PLATELET VOLUME 8.1 fL (7.4-11.0); MONOCYTES # (AUTO) 1.3 x10^3/uL (0.3-0.8); MONOCYTES % (AUTO) 12.2 % (0.0-13.0); NEUTROPHILS # (AUTO) 7.8 x10^3/uL (2.2-4.8); PLATELET COUNT 316 X10^3/uL (150.0-450.0); RED BLOOD COUNT 3.12 X10^6/uL (4.7-6.0); RED CELL DISTRIBUTION WIDTH 16.2 % (11.6-16.5); WHITE BLOOD COUNT 10.9 X10^3/uL (3.6-10.0)
[2019-11-03 07:38] LABS: ALANINE AMINOTRANSFERASE 37 Units/L (12-78); ALBUMIN 1.7 g/dL (3.4-5.0); ALKALINE PHOSPHATASE 233 Units/L (46-116); ASPARTATE AMINO TRANSFERASE 60 Units/L (15-37); BLOOD UREA NITROGEN 21 mg/dL (7-18); CALCIUM 8.5 mg/dL (8.5-10.1); CARBON DIOXIDE 27.8 mmol/L (21-32); CHLORIDE 101 mmol/L (98-107); COR CA(FOR HYPOALB) 10.3 mg/dL (8.5-10.1); CREATININE 1.34 mg/dL (0.70-1.30); SODIUM 136 mmol/L (136-145); TOTAL PROTEIN 6.7 g/dL (6.4-8.2); eGFR NON BLACK RACES 54 (>60)
[2019-11-03] MEDS: ZITHROMAX INJ 500 MG VIAL 250 MG in D5W 250 ML IV 250 ML IV SCH (08:43)
[2019-11-03] MEDS: DUONEB 0.5 MG/3 MG (3 mL) NEB SCH ×4 (10:00→20:10)
[2019-11-03] MEDS: NS 1000 ML 1,000 ML IV SCH (14:04)
[2019-11-03] MEDS: COLACE CAP 100 MG PO PRN (21:01)
[2019-11-03] MEDS: PRAVACHOL PO SCH (21:01)
[2019-11-03] MEDS: RESTORIL CAP 15 MG PO PRN (21:09)
[2019-11-04] MEDS: TYLENOL 325 MG TAB PO PRN ×2 (00:54→05:50)
[2019-11-04] MEDS: NS 1000 ML 1,000 ML IV SCH (01:00)
[2019-11-04] MEDS: ZOSYN VIAL 3.375 GRAMS 3.375 G in NS 100 ML IV + SPIKE MINIBAG* 100 ML IV SCH ×3 (05:06→21:55)
[2019-11-04] MEDS: SYNTHROID 175 mcg TAB PO SCH (05:06)
[2019-11-04] MEDS: NEURONTIN CAP 300 MG PO SCH ×3 (05:06→21:02)
[2019-11-04] MEDS: BUTT CREAM (COMPOUND) TOP PRN (06:20)
[2019-11-04] MEDS ORDERED: MOTRIN TAB 800 MG PO ONE (07:53)
[2019-11-04] MEDS: ZITHROMAX INJ 500 MG VIAL 250 MG in D5W 250 ML IV 250 ML IV SCH (08:07)
[2019-11-04] MEDS ORDERED: PHARMACY CONSULT - VANCOMYCIN XX SCH (09:00)
[2019-11-04 09:03] LABS: BASOPHILS % (AUTO) 0.2 % (0.2-1.0); EOSINOPHILS # (AUTO) 0.1 x10^3/uL (0.0-0.2); EOSINOPHILS % (AUTO) 1.5 % (0.9-2.9); HEMATOCRIT 28.4 % (42.0-54.0); HEMOGLOBIN 9.6 g/dL (13.5-18.0); LYMPHOCYTES # (AUTO) 0.2 X10^3/uL (1.3-2.9); LYMPHOCYTES % (AUTO) 3.3 % (21.0-51.0); MEAN CORPUSCULAR HEMOGLOBIN 28.9 pg (27.0-34.0); MEAN CORPUSCULAR HGB CONC 33.8 g/dL (33.0-35.0); MEAN CORPUSCULAR VOLUME 85.5 fL (80.0-100.0); MEAN PLATELET VOLUME 8.5 fL (7.4-11.0); MONOCYTES # (AUTO) 0 x10^3/uL (0.3-0.8); MONOCYTES % (AUTO) 0.6 % (0.0-13.0); NEUTROPHILS # (AUTO) 5.9 x10^3/uL (2.2-4.8); NEUTROPHILS % (AUTO) 94.4 % (42.0-75.0); PLATELET COUNT 285 X10^3/uL (150.0-450.0); RED BLOOD COUNT 3.32 X10^6/uL (4.7-6.0); RED CELL DISTRIBUTION WIDTH 15.9 % (11.6-16.5); WHITE BLOOD COUNT 6.3 X10^3/uL (3.6-10.0)
[2019-11-04 09:09] LABS: ALANINE AMINOTRANSFERASE 48 Units/L (12-78); ALBUMIN 1.6 g/dL (3.4-5.0); ALKALINE PHOSPHATASE 449 Units/L (46-116); ASPARTATE AMINO TRANSFERASE 77 Units/L (15-37); BLOOD UREA NITROGEN 16 mg/dL (7-18); CALCIUM 8.3 mg/dL (8.5-10.1); CARBON DIOXIDE 27.1 mmol/L (21-32); CHLORIDE 102 mmol/L (98-107); COR CA(FOR HYPOALB) 10.2 mg/dL (8.5-10.1); CREATININE 1.38 mg/dL (0.70-1.30); SODIUM 136 mmol/L (136-145); TOTAL PROTEIN 6.5 g/dL (6.4-8.2); eGFR NON BLACK RACES 52 (>60)
[2019-11-04 09:26] LABS: BAND NEUTROPHILS % 18 % (0-10)
[2019-11-04 09:27] LABS: PLATELET MORPHOLOGY COMMENT NORMAL (NORMAL)
[2019-11-04 09:32] LABS: TOTAL PSA < 0.13 ng/mL (0.13-4.0)
[2019-11-04] MEDS: DUONEB 0.5 MG/3 MG (3 mL) NEB SCH ×4 (10:00→20:42)
[2019-11-04] MEDS: VANCOMYCIN HCL 1 G in D5W 250 ML IV 250 ML IV SCH ×2 (10:54→20:07)
--- NOTE | 2019-11-04 11:16 | RAD ---
HISTORYBACK PAIN, FEVERSTUDYCHEST, 1 VIEWCOMPARISONJune 2019FINDINGSThe trachea is midline. The cardiac silhouette is stable. The lungs demonstrate a right basilar opacity concerning for pneumonia. The left lung appears clear.. The bony thorax is unremarkable.IMPRESSIONRight lower lobe opacity probably due to early pneumoniaElectronically signed by: ARAM SCOTT (Nov 04, 2019 11:15:00)
[2019-11-04] MEDS ORDERED: NS 1000 ML 1,000 ML IV ONE (11:53)
[2019-11-04] MEDS: LR 1000 ML IV 1,000 ML IV SCH ×2 (13:42→20:13)
[2019-11-04] MEDS: PRAVACHOL PO SCH (20:07)
[2019-11-04] MEDS: COLACE CAP 100 MG PO PRN (21:03)
[2019-11-04] MEDS: RESTORIL CAP 15 MG PO PRN (21:55)
[2019-11-05] MEDS: LR 1000 ML IV 1,000 ML IV SCH ×5 (00:07→22:40)
[2019-11-05] MEDS: ZOSYN VIAL 3.375 GRAMS 3.375 G in NS 100 ML IV + SPIKE MINIBAG* 100 ML IV SCH ×3 (05:05→22:38)
[2019-11-05] MEDS: NEURONTIN CAP 300 MG PO SCH ×3 (05:05→22:38)
[2019-11-05] MEDS: SYNTHROID 175 mcg TAB PO SCH (05:05)
[2019-11-05 06:22] LABS: BASOPHILS # (AUTO) 0.1 X10^3/uL (0.0-0.1); BASOPHILS % (AUTO) 0.4 % (0.2-1.0); EOSINOPHILS # (AUTO) 0.5 x10^3/uL (0.0-0.2); EOSINOPHILS % (AUTO) 2.8 % (0.9-2.9); HEMATOCRIT 25.7 % (42.0-54.0); HEMOGLOBIN 8.6 g/dL (13.5-18.0); LYMPHOCYTES # (AUTO) 2.1 X10^3/uL (1.3-2.9); LYMPHOCYTES % (AUTO) 10.9 % (21.0-51.0); MEAN CORPUSCULAR HGB CONC 33.3 g/dL (33.0-35.0); MEAN CORPUSCULAR VOLUME 87.2 fL (80.0-100.0); MEAN PLATELET VOLUME 8.8 fL (7.4-11.0); MONOCYTES # (AUTO) 1.5 x10^3/uL (0.3-0.8); MONOCYTES % (AUTO) 7.8 % (0.0-13.0); NEUTROPHILS % (AUTO) 78.1 % (42.0-75.0); PLATELET COUNT 263 X10^3/uL (150.0-450.0); RED BLOOD COUNT 2.95 X10^6/uL (4.7-6.0); RED CELL DISTRIBUTION WIDTH 16.3 % (11.6-16.5); WHITE BLOOD COUNT 19.2 X10^3/uL (3.6-10.0)
--- NOTE | 2019-11-05 06:27 | RAD ---
HISTORYBack painSTUDYAP [id number]/14/2020FINDINGSContinued normal heart size and contour. Previously described infilt rate at the right base is less definite today. Increased pulmonary markings remain in this location c onsistent with improving pneumonia or atelectasis. There is no new abnormality noted.IMPRESSIONImprov ed appearance right lower lung. No new lesion identified since 1 day earlier.Electronically signed by : JULY CAMPUZANO (Nov 05, 2019 06:26:12)
[2019-11-05 06:38] LABS: ALANINE AMINOTRANSFERASE 43 Units/L (12-78); ALBUMIN 1.4 g/dL (3.4-5.0); ALKALINE PHOSPHATASE 301 Units/L (46-116); ASPARTATE AMINO TRANSFERASE 53 Units/L (15-37); BLOOD UREA NITROGEN 14 mg/dL (7-18); CALCIUM 8.3 mg/dL (8.5-10.1); CHLORIDE 105 mmol/L (98-107); COR CA(FOR HYPOALB) 10.4 mg/dL (8.5-10.1); CREATININE 1.27 mg/dL (0.70-1.30); MAGNESIUM 1.6 mg/dL (1.7-2.9); SODIUM 139 mmol/L (136-145); eGFR NON BLACK RACES 57 (>60)
[2019-11-05] MEDS: VANCOMYCIN HCL 1 G in D5W 250 ML IV 250 ML IV SCH ×2 (08:30→22:36)
[2019-11-05] MEDS: DIFLUCAN PO SCH (08:40)
[2019-11-05] MEDS: K-DUR TAB 20 MEQ PO SCH ×2 (08:40→21:57)
[2019-11-05] MEDS: ZITHROMAX INJ 500 MG VIAL 250 MG in D5W 250 ML IV 250 ML IV SCH (08:46)
[2019-11-05] MEDS: NYSTATIN POWDER TOP SCH ×2 (09:15→22:36)
[2019-11-05] MEDS: DUONEB 0.5 MG/3 MG (3 mL) NEB SCH ×4 (09:41→20:56)
--- NOTE | 2019-11-05 09:57 | PCM.PROG ---
Progress Note Progress Note for Day of Date of Exam: 11/05/19 Subjective Subjective: Patient seen at bedside, no overnight events. Patient states he feels slightly better. His appetite is slowly improving. He states his cough has gotten better, still has some sputum production. No fever overnight. Denies N/V/D or abdominal pain. He had a temp yesterday morning, Tmax 103 so Vancomycin was added. Blood cultures x 2 sets have been negative, third set is pending which was collected yesterday. Urine culture shows multiple organisms, Sputum Cx is growing yeast. Labs: WBC elevated from 6.3 to 19.2, hgb: 8.6 M.4 K:3.4 BUN/Cr: 14/1.27 CXR: improvement in right opacity Plan: continue Vanc/Zosyn, azithromax, will add PO diflucan. Replace K and Mag as per protocol. Will repeat UA, follow cultures. Decrease LR to 100cc/hr, continue duonebs. Continue PT/OT. Past Medical Family Social History Past Med/Fam/Surg Hx: No changes since H&P Allergies: Allergies niacin Allergy (Verified 09/20/19 10:09) Review of Systems ROS: No change since H&P Vital Signs and I&O's Vital Signs: Temperature 97.5 F Pulse Rate [Right Brachial] 66 Pulse Rate 84 Respiratory Rate 18 Blood Pressure [Right Arm] 124/61 Blood Pressure [Left Arm] 152/68 Blood Pressure 121/52 O2 Sat by Pulse Oximetry 95 Intake and Output: Intake & Output 11/02/19 11/03/19 11/04/19 11/05/19 23:59 23:59 23:59 23:59 Intake Total 1020 / 1020 1901 / 1901 1789 / 1789 1441 / 1441 Output Total 200 / 200 250 / 250 450 / 450 Balance 1020 / 1020 1701 / 1701 1539 / 1539 991 / 991 Physical Exam Oriented: Normal Ear: Normal Nose: Normal Throat: Dry Respiratory: Generalized and Diminished Cardiovascular: Normal Auscultation: Bowel Sounds: Increased Tenderness: Normal Skin: Normal Musculoskeletal: Back:Thoracic and Back:Lumbar Psychiatric: Normal Mood Description: Calm Affect: Normal Speech Pattern: Clear Laboratory and Diagnostics Result Diagrams: 11/05/19 05:49 11/05/19 05:49 Labs: 11/02/19 00:55 Blood Blood Culture - Preliminary 11/02/19 00:49 Blood Blood Culture - Preliminary 11/01/19 21:45 Sputum - Expectorated Sputum Sputum Culture - Final 11/01/19 21:45 Sputum - Expectorated Sputum - Final 11/02/19 09:10 Urine,Clean Catch Urine Culture - Final 11/01/19 15:00 Blood Blood Culture - Preliminary 11/01/19 14:55 Blood Blood Culture - Preliminary Laboratory WBC 19.2 X10^3/uL (3.6-10.0) H D 11/05/19 05:49 RBC 2.95 X10^6/uL (4.7-6.0) L 11/05/19 05:49 Hgb 8.6 g/dL (13.5-18.0) L 11/05/19 05:49 Hct 25.7 % (42.0-54.0) L 11/05/19 05:49 MCV 87.2 fL (80.0-100.0) 11/05/19 05:49 MCH 29.0 pg (27.0-34.0) 11/05/19 05:49 MCHC 33.3 g/dL (33.0-35.0) 11/05/19 05:49 RDW 16.3 % (11.6-16.5) 11/05/19 05:49 Plt Count 263 X10^3/uL (150.0-450.0) 11/05/19 05:49 Plt Count Comment Adequate (ADEQUATE) 11/04/19 08:18 MPV 8.8 fL (7.4-11.0) 11/05/19 05:49 Neut % (Auto) 78.1 % (42.0-75.0) H 11/05/19 05:49 Lymph % (Auto) 10.9 % (21.0-51.0) L 11/05/19 05:49 Crook % (Auto) 7.8 % (0.0-13.0) 11/05/19 05:49 Eos % (Auto) 2.8 % (0.9-2.9) 11/05/19 05:49 Baso % (Auto) 0.4 % (0.2-1.0) 11/05/19 05:49 Neut # (Auto) 15.0 x10^3/uL (2.2-4.8) H 11/05/19 05:49 Lymph # (Auto) 2.1 X10^3/uL (1.3-2.9) 11/05/19 05:49 Crook # (Auto) 1.5 x10^3/uL (0.3-0.8) H 11/05/19 05:49 Eos # (Auto) 0.5 x10^3/uL (0.0-0.2) H 11/05/19 05:49 Baso # (Auto) 0.1 X10^3/uL (0.0-0.1) 11/05/19 05:49 Absolute Nucleated RBC 0.0 /100WBC 11/05/19 05:49 Total Counted 100 11/04/19 08:18 Neutrophils % (Manual) 74 % (39-76) 11/04/19 08:18 Band Neutrophils % 18 % (0-10) H 11/04/19 08:18 Lymphocytes % (Manual) 4 % (13-43) L 11/04/19 08:18 Monocytes % (Manual) 2 % (4-9) L 11/04/19 08:18 Eosinophils % (Manual) 2 % (0-6) 11/04/19 08:18 Plt Morphology Comment Normal (NORMAL) 11/04/19 08:18 RBC Morphology Normal (NORMAL) 11/04/19 08:18 Hypochromasia 1+ A 11/02/19 05:48 Sodium 139 mmol/L (136-145) 11/05/19 05:49 Corrected Sodium TNP 11/05/19 05:49 Potassium 3.4 mmol/L (3.5-5.1) L 11/05/19 05:49 Chloride 105 mmol/L (98-107) 11/05/19 05:49 Carbon Dioxide 29.0 mmol/L (21-32) 11/05/19 05:49 BUN 14 mg/dL (7-18) 11/05/19 05:49 Creatinine 1.27 mg/dL (0.70-1.30) 11/05/19 05:49 Est GFR (MDRD) Af Amer > 60 (>60) 11/05/19 05:49 Est GFR (MDRD) Non-Af 57 (>60) L 11/05/19 05:49 Glucose 98 mg/dL (65-99) 11/05/19 05:49 Lactic Acid 0.8 mmol/L (0.4-2.0) 11/02/19 07:55 Calcium 8.3 mg/dL (8.5-10.1) L 11/05/19 05:49 Corrected Calcium 10.4 mg/dL (8.5-10.1) H 11/05/19 05:49 Magnesium 1.6 mg/dL (1.7-2.9) L 11/05/19 05:49 Total Bilirubin 0.30 mg/dL (0.2-1.0) 11/05/19 05:49 AST 53 Units/L (15-37) H 11/05/19 05:49 ALT 43 Units/L (12-78) 11/05/19 05:49 Alkaline Phosphatase 301 Units/L (46-116) H 11/05/19 05:49 Creatine Kinase 27 Units/L (39-308) L 11/01/19 13:37 CK-MB (CK-2) < 1.0 ng/mL (0-4.0) 11/01/19 13:37 CK/CKMB % Calc 3.7 % (<4) 11/01/19 13:37 Troponin I 0.06 ng/mL (0-1.5) 11/01/19 13:37 Total Protein 6.0 g/dL (6.4-8.2) L 11/05/19 05:49 Albumin 1.4 g/dL (3.4-5.0) L 11/05/19 05:49 Globulin 4.6 g/dL (2.5-4.5) H 11/05/19 05:49 Albumin/Globulin Ratio 0.3 Ratio (1.1-2.1) L 11/05/19 05:49 Total PSA < 0.13 ng/mL (0.13-4.0) L 11/04/19 08:18 Specimen Type Clean catch urine 11/02/19 09:10 Urine Color Yellow (YELLOW) 11/02/19 09:10 Urine Appearance Hazy (CLEAR) 11/02/19 09:10 Urine pH 5.0 (5.0 - 8.0) 11/02/19 09:10 Ur Specific Fisher 1.015 (1.000-1.030) 11/02/19 09:10 Urine Protein 2+ (NEGATIVE) 11/02/19 09:10 Urine Glucose (UA) Negative (NEGATIVE) 11/02/19 09:10 Urine Ketones Negative (NEGATIVE) 11/02/19 09:10 Urine Occult Blood 1+ (NEGATIVE) 11/02/19 09:10 Urine Nitrite Negative (NEGATIVE) 11/02/19 09:10 Urine Bilirubin Negative (NEGATIVE) 11/02/19 09:10 Urine Urobilinogen Normal (NORMAL) 11/02/19 09:10 Ur Leukocyte Esterase 1+ (NEGATIVE) 11/02/19 09:10 Urine RBC 3-5 /HPF (0-3) A 11/02/19 09:10 Urine WBC 5-10 /HPF (0-5) A 11/02/19 09:10 Ur Squamous Epith Cells Few /HPF (NEGATIVE) 11/02/19 09:10 Urine Bacteria 1+ /HPF (NEGATIVE) 11/02/19 09:10 Granular Casts Few /LPF (NEGATIVE) 11/02/19 09:10 Urine Mucus Moderate /HPF (NEGATIVE) 11/02/19 09:10 Ur Culture Indicated? Yes/culture set up 11/02/19 09:10 Ur Random Sodium 62 mmol/L (40-220) 11/02/19 09:10 Stool Description 75g formed brown 11/05/19 08:35 Stl Occult Blood (IFOB) Negative (NEGATIVE) 11/05/19 08:35 Influenza Type A Ag Negative-presumptive (NEGATIVE) 11/01/19 15:10 Influenza Type B Ag Negative-presumptive (NEGATIVE) 11/01/19 15:10 Mycoplasma pneumon IgG Negative (NEGATIVE) 11/01/19 13:37 SARS-CoV-2 (PCR) Negative (NEGATIVE) 11/01/19 14:52 Blood Type O POSITIVE 11/02/19 07:55 Antibody Screen Negative 11/02/19 07:55 Crossmatch See Detail 11/02/19 07:55 Plan (1) Pneumonia: Status: Acute Qualifiers: Laterality: bilateral Lung location: lower lobe of lung Pneumonia type: due to unspecified organism Qualified Code(s): J18.9 - Pneumonia, unspecified organism (2) UTI (urinary tract infection): Status: Acute Qualifiers: Hematuria presence: without hematuria Urinary tract infection type: acute cystitis Qualified Code(s): N30.00 - Acute cystitis without hematuria (3) Hypomagnesemia: Status: Acute (4) Hypokalemia: Status: Acute (5) Anemia: Status: Acute Qualifiers: Anemia type: unspecified type Qualified Code(s): D64.9 - Anemia, unspe cified (6) Hypotension: Status: Acute Qualifiers: Hypotension type: hypotension due to hypovolemia Qualified Code(s): I95.89 - Other hypotension; E86.1 - Hypovolemia (7) FARRAH (acute kidney injury): Status: Acute (8) Pancreatic cancer: Status: Acute Qualifiers: Pancreatic malignancy location: unspecified Qualified Code(s): C25.9 - Malignant neoplasm of pancreas, unspecified
[2019-11-05 10:29] LABS: BILIRUBIN,URINE NEGATIVE (NEGATIVE); BLOOD/HEMOGLOBIN,URINE 1+ (NEGATIVE); GLUCOSE, URINE NEGATIVE (NEGATIVE); KETONES,URINE NEGATIVE (NEGATIVE); LEUKOCYTE ESTERASE ,URINE 1+ (NEGATIVE); NITRITES,URINE NEGATIVE (NEGATIVE); PROTEIN,URINE 2+ (NEGATIVE); UROBILINOGEN,URINE NORMAL (NORMAL)
[2019-11-05] MEDS: LOVENOX INJ 40 MG SYR SC SCH (10:40)
[2019-11-05 10:42] LABS: APPEARANCE,URINE HAZY (CLEAR); COLOR,URINE YELLOW (YELLOW)
[2019-11-05 10:50] LABS: RBC,URINE 0-2 /HPF (0-3)
[2019-11-05 10:51] LABS: BACTERIA,URINE TRACE /HPF (NEGATIVE); SQUAMOUS EPITHELIAL CELL,UR FEW /HPF (NEGATIVE)
[2019-11-05 10:54] LABS: OTHER CRYSTALS,URINE MANY /HPF (NEGATIVE)
[2019-11-05] MEDS: MAGNESIUM SULFATE 1 GRAM/100 mL PREMIX 1 GM/100 ML BAG IV PRN ×2 (12:28→13:34)
[2019-11-05] MEDS: TYLENOL 325 MG TAB PO PRN (17:47)
[2019-11-05] MEDS ORDERED: PHARMACY COMMENT IV NR (20:30)
[2019-11-05] MEDS: PRAVACHOL PO SCH (21:36)
[2019-11-05 21:43] LABS: CREATININE 1.17 mg/dL (0.70-1.30); VANCOMYCIN,TROUGH 17.4 ug/mL (15-20)
[2019-11-05] MEDS: NORCO 10/325 TAB PO PRN (22:37)
[2019-11-05] MEDS: RESTORIL CAP 15 MG PO PRN (22:38)
[2019-11-06] MEDS: LR 1000 ML IV 1,000 ML IV SCH ×3 (05:35→09:35)
[2019-11-06 06:14] LABS: BASOPHILS # (AUTO) 0.1 X10^3/uL (0.0-0.1); BASOPHILS % (AUTO) 0.6 % (0.2-1.0); EOSINOPHILS # (AUTO) 0.7 x10^3/uL (0.0-0.2); EOSINOPHILS % (AUTO) 3.9 % (0.9-2.9); HEMATOCRIT 26.7 % (42.0-54.0); HEMOGLOBIN 8.8 g/dL (13.5-18.0); LYMPHOCYTES # (AUTO) 1.3 X10^3/uL (1.3-2.9); LYMPHOCYTES % (AUTO) 7.5 % (21.0-51.0); MEAN CORPUSCULAR HEMOGLOBIN 28.6 pg (27.0-34.0); MEAN CORPUSCULAR HGB CONC 32.9 g/dL (33.0-35.0); MEAN PLATELET VOLUME 8.3 fL (7.4-11.0); MONOCYTES # (AUTO) 0.7 x10^3/uL (0.3-0.8); MONOCYTES % (AUTO) 4.2 % (0.0-13.0); NEUTROPHILS # (AUTO) 14.4 x10^3/uL (2.2-4.8); NEUTROPHILS % (AUTO) 83.8 % (42.0-75.0); PLATELET COUNT 268 X10^3/uL (150.0-450.0); RED BLOOD COUNT 3.07 X10^6/uL (4.7-6.0); RED CELL DISTRIBUTION WIDTH 16.2 % (11.6-16.5); WHITE BLOOD COUNT 17.2 X10^3/uL (3.6-10.0)
[2019-11-06 06:39] LABS: ALANINE AMINOTRANSFERASE 41 Units/L (12-78); ALBUMIN 1.5 g/dL (3.4-5.0); ALKALINE PHOSPHATASE 297 Units/L (46-116); ASPARTATE AMINO TRANSFERASE 49 Units/L (15-37); BLOOD UREA NITROGEN 13 mg/dL (7-18); CALCIUM 8.4 mg/dL (8.5-10.1); CARBON DIOXIDE 27.3 mmol/L (21-32); CHLORIDE 106 mmol/L (98-107); COR CA(FOR HYPOALB) 10.4 mg/dL (8.5-10.1); CREATININE 1.14 mg/dL (0.70-1.30); MAGNESIUM 1.9 mg/dL (1.7-2.9); SODIUM 139 mmol/L (136-145); TOTAL PROTEIN 6.1 g/dL (6.4-8.2); eGFR NON BLACK RACES > 60 (>60)
[2019-11-06] MEDS: ZOSYN VIAL 3.375 GRAMS 3.375 G in NS 100 ML IV + SPIKE MINIBAG* 100 ML IV SCH ×3 (06:46→21:29)
[2019-11-06] MEDS: NEURONTIN CAP 300 MG PO SCH ×3 (06:46→21:29)
[2019-11-06] MEDS: SYNTHROID 175 mcg TAB PO SCH (06:46)
[2019-11-06] MEDS: BUTT CREAM (COMPOUND) TOP PRN (06:47)
--- NOTE | 2019-11-06 08:47 | PCM.PROG ---
Progress Note Progress Note for Day of Date of Exam: 11/06/19 Subjective Subjective: No overnight events, patient seen at bedside. He had a temp of 100.9 yesterday evening associated with chills. He states he is doing a little better today. His appetite is slowly improving, did drink Ensure yesterday. He worked with PT/OT, mostly exercises in bed. He did require a lot assistance for simple tasks and not able to stand up on his own. He denies N/V/D or abdominal pain. Labs: WBC: 17.2 Hgb: 8.8 K: 4.5 Cr: 1.14 Plan: follow last set of blood cultures, UA negative, Will DC vancomycin, continue Zosyn, last dose of azithromycin today. Continue diflucan. Continue PT/OT. looking into rehab at [place], discussing with patient later today. Patient's referral with Dr. Reyes pending, awaiting records from [facility]. Past Medical Family Social History Past Med/Fam/Surg Hx: No changes since H&P Allergies: Allergies niacin Allergy (Verified 09/20/19 10:09) Review of Systems ROS: No change since H&P Vital Signs and I&O's Vital Signs: Temperature 97.8 F Pulse Rate [Right Brachial] 68 Pulse Rate 81 Respiratory Rate 18 Blood Pressure [Right Arm] 145/68 Blood Pressure [Left Arm] 152/68 Blood Pressure 121/52 O2 Sat by Pulse Oximetry 98 Intake and Output: Intake & Output 11/03/19 11/04/19 11/05/19 11/06/19 23:59 23:59 23:59 23:59 Intake Total 1901 / 1901 1789 / 1789 3581 / 3581 150 / 150 Output Total 200 / 200 250 / 250 750 / 750 Balance 1701 / 1701 1539 / 1539 2831 / 2831 150 / 150 Physical Exam Oriented: Normal Ear: Normal Nose: Normal Throat: Dry Respiratory: Generalized and Diminished Cardiovascular: Normal Auscultation: Bowel Sounds: Increased Tenderness: Normal Skin: Normal Musculoskeletal: Back:Thoracic and Back:Lumbar Psychiatric: Normal Mood Description: Calm Affect: Normal Speech Pattern: Clear Laboratory and Diagnostics Result Diagrams: 11/06/19 05:40 11/06/19 05:40 Labs: 11/02/19 00:55 Blood Blood Culture - Preliminary 11/02/19 00:49 Blood Blood Culture - Preliminary 11/01/19 21:45 Sputum - Expectorated Sputum Sputum Culture - Final 11/01/19 21:45 Sputum - Expectorated Sputum - Final 11/02/19 09:10 Urine,Clean Catch Urine Culture - Final 11/01/19 15:00 Blood Blood Culture - Preliminary 11/01/19 14:55 Blood Blood Culture - Preliminary Laboratory WBC 17.2 X10^3/uL (3.6-10.0) H 11/06/19 05:40 RBC 3.07 X10^6/uL (4.7-6.0) L 11/06/19 05:40 Hgb 8.8 g/dL (13.5-18.0) L 11/06/19 05:40 Hct 26.7 % (42.0-54.0) L 11/06/19 05:40 MCV 87.0 fL (80.0-100.0) 11/06/19 05:40 MCH 28.6 pg (27.0-34.0) 11/06/19 05:40 MCHC 32.9 g/dL (33.0-35.0) L 11/06/19 05:40 RDW 16.2 % (11.6-16.5) 11/06/19 05:40 Plt Count 268 X10^3/uL (150.0-450.0) 11/06/19 05:40 Plt Count Comment Adequate (ADEQUATE) 11/04/19 08:18 MPV 8.3 fL (7.4-11.0) 11/06/19 05:40 Neut % (Auto) 83.8 % (42.0-75.0) H 11/06/19 05:40 Lymph % (Auto) 7.5 % (21.0-51.0) L 11/06/19 05:40 Emmons % (Auto) 4.2 % (0.0-13.0) 11/06/19 05:40 Eos % (Auto) 3.9 % (0.9-2.9) H 11/06/19 05:40 Baso % (Auto) 0.6 % (0.2-1.0) 11/06/19 05:40 Neut # (Auto) 14.4 x10^3/uL (2.2-4.8) H 11/06/19 05:40 Lymph # (Auto) 1.3 X10^3/uL (1.3-2.9) 11/06/19 05:40 Emmons # (Auto) 0.7 x10^3/uL (0.3-0.8) 11/06/19 05:40 Eos # (Auto) 0.7 x10^3/uL (0.0-0.2) H 11/06/19 05:40 Baso # (Auto) 0.1 X10^3/uL (0.0-0.1) 11/06/19 05:40 Absolute Nucleated RBC 0.0 /100WBC 11/06/19 05:40 Total Counted 100 11/04/19 08:18 Neutrophils % (Manual) 74 % (39-76) 11/04/19 08:18 Band Neutrophils % 18 % (0-10) H 11/04/19 08:18 Lymphocytes % (Manual) 4 % (13-43) L 11/04/19 08:18 Monocytes % (Manual) 2 % (4-9) L 11/04/19 08:18 Eosinophils % (Manual) 2 % (0-6) 11/04/19 08:18 Plt Morphology Comment Normal (NORMAL) 11/04/19 08:18 RBC Morphology Normal (NORMAL) 11/04/19 08:18 Hypochromasia 1+ A 11/02/19 05:48 Sodium 139 mmol/L (136-145) 11/06/19 05:40 Corrected Sodium TNP 11/06/19 05:40 Potassium 4.5 mmol/L (3.5-5.1) 11/06/19 05:40 Chloride 106 mmol/L (98-107) 11/06/19 05:40 Carbon Dioxide 27.3 mmol/L (21-32) 11/06/19 05:40 BUN 13 mg/dL (7-18) 11/06/19 05:40 Creatinine 1.14 mg/dL (0.70-1.30) 11/06/19 05:40 Est GFR (MDRD) Af Amer > 60 (>60) 11/06/19 05:40 Est GFR (MDRD) Non-Af > 60 (>60) 11/06/19 05:40 Glucose 91 mg/dL (65-99) 11/06/19 05:40 Lactic Acid 0.8 mmol/L (0.4-2.0) 11/02/19 07:55 Calcium 8.4 mg/dL (8.5-10.1) L 11/06/19 05:40 Corrected Calcium 10.4 mg/dL (8.5-10.1) H 11/06/19 05:40 Magnesium 1.9 mg/dL (1.7-2.9) 11/06/19 05:40 Total Bilirubin 0.20 mg/dL (0.2-1.0) 11/06/19 05:40 AST 49 Units/L (15-37) H 11/06/19 05:40 ALT 41 Units/L (12-78) 11/06/19 05:40 Alkaline Phosphatase 297 Units/L (46-116) H 11/06/19 05:40 Creatine Kinase 27 Units/L (39-308) L 11/01/19 13:37 CK-MB (CK-2) < 1.0 ng/mL (0-4.0) 11/01/19 13:37 CK/CKMB % Calc 3.7 % (<4) 11/01/19 13:37 Troponin I 0.06 ng/mL (0-1.5) 11/01/19 13:37 Total Protein 6.1 g/dL (6.4-8.2) L 11/06/19 05:40 Albumin 1.5 g/dL (3.4-5.0) L 11/06/19 05:40 Globulin 4.6 g/dL (2.5-4.5) H 11/06/19 05:40 Albumin/Globulin Ratio 0.3 Ratio (1.1-2.1) L 11/06/19 05:40 Total PSA < 0.13 ng/mL (0.13-4.0) L 11/04/19 08:18 Specimen Type Clean catch urine 11/05/19 10:17 Urine Color Yellow (YELLOW) 11/05/19 10:17 Urine Appearance Hazy (CLEAR) 11/05/19 10:17 Urine pH 6.0 (5.0 - 8.0) 11/05/19 10:17 Ur Specific [place] 1.010 (1.000-1.030) 11/05/19 10:17 Urine Protein 2+ (NEGATIVE) 11/05/19 10:17 Urine Glucose (UA) Negative (NEGATIVE) 11/05/19 10:17 Urine Ketones Negative (NEGATIVE) 11/05/19 10:17 Urine Occult Blood 1+ (NEGATIVE) 11/05/19 10:17 Urine Nitrite Negative (NEGATIVE) 11/05/19 10:17 Urine Bilirubin Negative (NEGATIVE) 11/05/19 10:17 Urine Urobilinogen Normal (NORMAL) 11/05/19 10:17 Ur Leukocyte Esterase 1+ (NEGATIVE) 11/05/19 10:17 Urine RBC 0-2 /HPF (0-3) 11/05/19 10:17 Urine WBC 0-2 /HPF (0-5) 11/05/19 10:17 Ur Squamous Epith Cells Few /HPF (NEGATIVE) 11/05/19 10:17 Other Crystals Many /HPF (NEGATIVE) 11/05/19 10:17 Urine Bacteria Trace /HPF (NEGATIVE) 11/05/19 10:17 Granular Casts Few /LPF (NEGATIVE) 11/02/19 09:10 Urine Mucus Moderate /HPF (NEGATIVE) 11/02/19 09:10 Ur Culture Indicated? No/not indicated 11/05/19 10:17 Ur Random Sodium 62 mmol/L (40-220) 11/02/19 09:10 Stool Description 75g formed brown 11/05/19 08:35 Stl Occult Blood (IFOB) Negative (NEGATIVE) 11/05/19 08:35 Vancomycin Trough 17.4 ug/mL (15-20) 11/05/19 21:05 Influenza Type A Ag Negative-presumptive (NEGATIVE) 11/01/19 15:10 Influenza Type B Ag Negative-presumptive (NEGATIVE) 11/01/19 15:10 Mycoplasma pneumon IgG Negative (NEGATIVE) 11/01/19 13:37 SARS-CoV-2 (PCR) Negative (NEGATIVE) 11/01/19 14:52 Blood Type O POSITIVE 11/02/19 07:55 Antibody Screen Negative 11/02/19 07:55 Crossmatch See Detail 11/02/19 07:55 Plan (1) Generalized weakness: Status: Acute (2) Pneumonia: Status: Acute Qualifiers: Laterality: bilateral Lung location: lower lobe of lung Pneumonia type: due to unspecified organism Qualified Code(s): J18.9 - Pneumonia, unspecified organism (3) UTI (urinary tract infection): Status: Acute Qualifiers: Hematuria presence: without hematuria Urinary tract infection type: acute cystitis Qualified Code(s): N30.00 - Acute cystitis without hematuria (4) Hypomagnesemia: Status: Acute (5) Hypokalemia: Status: Acute (6) Anemia: Status: Acute Qualifiers: Anemia type: unspecified type Qualified Code(s): D64.9 - Anemia, unspecified (7) Hypotension: Status: Acute Qualifiers: Hypotension type: hypotension due to hypovolemia Qualified Code(s): I95.89 - Other hypotension; E86.1 - Hypovolemia (8) FARRAH (acute kidney injury): Status: Acute (9) Pancreatic cancer: Status: Acute Qualifiers: Pancreatic malignancy location: unspecified Qualified Code(s): C25.9 - Malignant neoplasm of pancreas, unspecified
[2019-11-06] MEDS: DIFLUCAN PO SCH (08:50)
[2019-11-06] MEDS: LOVENOX INJ 40 MG SYR SC SCH (08:59)
[2019-11-06] MEDS: NYSTATIN POWDER TOP SCH ×2 (09:03→20:43)
[2019-11-06] MEDS: DUONEB 0.5 MG/3 MG (3 mL) NEB SCH ×4 (09:15→21:02)
[2019-11-06] MEDS: ZITHROMAX INJ 500 MG VIAL 250 MG in D5W 250 ML IV 250 ML IV SCH (09:34)
[2019-11-06] MEDS ORDERED: NEURONTIN CAP 300 MG PO ONE (14:12)
[2019-11-06] MEDS ORDERED: ZOSYN VIAL 3.375 GRAMS IV ONE (14:13)
[2019-11-06] MEDS ORDERED: NS 100 ML IV + SPIKE MINIBAG* 100 ML IV ONE (14:14)
--- NOTE | 2019-11-06 18:36 | RAD ---
HISTORYCOUGH, WEAKNESSSTUDYCHEST, 1 [id number] trachea is midline. The cardiac silhouette is unremarkable. Low lung volume with mild bibasilar atelectasis versus infiltrates. No pleural effusion or pneumothorax. The bony thorax is stable.IMPRESSIONLow lung volume with mild bibasilar atelectasis versus infiltrates.Electronically signed by: Karen Viramontes (Nov 01, 2019 14:32:01)
[2019-11-06] MEDS: PRAVACHOL PO SCH (20:43)
[2019-11-06] MEDS: RESTORIL CAP 15 MG PO PRN (20:44)
[2019-11-06] MEDS: NORCO 10/325 TAB PO PRN (20:44)
[2019-11-07 04:49] LABS: BILIRUBIN,URINE NEGATIVE (NEGATIVE); BLOOD/HEMOGLOBIN,URINE 1+ (NEGATIVE); GLUCOSE, URINE NEGATIVE (NEGATIVE); KETONES,URINE NEGATIVE (NEGATIVE); LEUKOCYTE ESTERASE ,URINE NEGATIVE (NEGATIVE); NITRITES,URINE NEGATIVE (NEGATIVE); PROTEIN,URINE 1+ (NEGATIVE); UROBILINOGEN,URINE NORMAL (NORMAL)
[2019-11-07 05:02] LABS: APPEARANCE,URINE HAZY (CLEAR); BACTERIA,URINE 2+ /HPF (NEGATIVE); COLOR,URINE YELLOW (YELLOW); GRANULAR CASTS,URINE FEW /LPF (NEGATIVE); HYALINE CASTS, URINE FEW /LPF (NEGATIVE); RBC,URINE 0-2 /HPF (0-3); SQUAMOUS EPITHELIAL CELL,UR FEW /HPF (NEGATIVE)
[2019-11-07 06:19] LABS: BASOPHILS # (AUTO) 0.1 X10^3/uL (0.0-0.1); BASOPHILS % (AUTO) 0.6 % (0.2-1.0); EOSINOPHILS # (AUTO) 0.7 x10^3/uL (0.0-0.2); EOSINOPHILS % (AUTO) 5.3 % (0.9-2.9); HEMATOCRIT 26.8 % (42.0-54.0); HEMOGLOBIN 8.9 g/dL (13.5-18.0); LYMPHOCYTES # (AUTO) 1.8 X10^3/uL (1.3-2.9); LYMPHOCYTES % (AUTO) 13.3 % (21.0-51.0); MEAN CORPUSCULAR HEMOGLOBIN 28.4 pg (27.0-34.0); MEAN CORPUSCULAR HGB CONC 33.1 g/dL (33.0-35.0); MEAN CORPUSCULAR VOLUME 85.7 fL (80.0-100.0); MEAN PLATELET VOLUME 8.3 fL (7.4-11.0); MONOCYTES % (AUTO) 7.2 % (0.0-13.0); NEUTROPHILS # (AUTO) 10.1 x10^3/uL (2.2-4.8); NEUTROPHILS % (AUTO) 73.6 % (42.0-75.0); PLATELET COUNT 270 X10^3/uL (150.0-450.0); RED BLOOD COUNT 3.12 X10^6/uL (4.7-6.0); RED CELL DISTRIBUTION WIDTH 16.3 % (11.6-16.5); WHITE BLOOD COUNT 13.8 X10^3/uL (3.6-10.0)
[2019-11-07 06:22] LABS: ALANINE AMINOTRANSFERASE 39 Units/L (12-78); ALBUMIN 1.4 g/dL (3.4-5.0); ALKALINE PHOSPHATASE 313 Units/L (46-116); ASPARTATE AMINO TRANSFERASE 46 Units/L (15-37); BLOOD UREA NITROGEN 10 mg/dL (7-18); CALCIUM 8.7 mg/dL (8.5-10.1); CARBON DIOXIDE 26.3 mmol/L (21-32); CHLORIDE 106 mmol/L (98-107); COR CA(FOR HYPOALB) 10.8 mg/dL (8.5-10.1); CREATININE 1.06 mg/dL (0.70-1.30); SODIUM 138 mmol/L (136-145); eGFR NON BLACK RACES > 60 (>60)
[2019-11-07] MEDS: SYNTHROID 175 mcg TAB PO SCH (06:27)
[2019-11-07] MEDS: ZOSYN VIAL 3.375 GRAMS 3.375 G in NS 100 ML IV + SPIKE MINIBAG* 100 ML IV SCH ×3 (06:27→21:27)
[2019-11-07] MEDS: NEURONTIN CAP 300 MG PO SCH ×3 (06:27→21:27)
--- NOTE | 2019-11-07 08:14 | PCM.PROG ---
Progress Note Progress Note for Day of Date of Exam: 11/07/19 Subjective Subjective: Patient seen at bedside, no acute events overnight. Afebrile. Patient did have distended abdomen, ribera was placed and patient had 1600 cc urine retained. His appetite is still poor but drinking Ensure. He worked with PT/OT yesterday, sat in the chair. RT did assess him for O2 and it dropped to 87% with RA so he was placed back on 2L. He is currently on RA and states his breathing is better, cough improved. Labs: WBC 13.8 Hgb:8.9 BUN/Cr: 02/20.06 K:4.1 Cultures: blood x 3 sets (-), Urine culture from last night pending Sputum: yeast Plan: continue PT/OT, initiate bladder training, start Flomax, continue Zosyn and Diflucan, restart lisinopril. CM to discuss options for rehab with patient. Past Medical Family Social History Past Med/Fam/Surg Hx: No changes since H&P Allergies: Allergies niacin Allergy (Verified 09/20/19 10:09) Review of Systems ROS: No change since H&P Vital Signs and I&O's Vital Signs: Temperature 99 F Pulse Rate [Right Brachial] 81 Pulse Rate 84 Respiratory Rate 20 Blood Pressure [Right Arm] 165/72 Blood Pressure [Left Arm] 152/68 Blood Pressure 121/52 O2 Sat by Pulse Oximetry 97 Intake and Output: Intake & Output 11/04/19 11/05/19 11/06/19 11/07/19 23:59 23:59 23:59 23:59 Intake Total 1789 / 1789 3581 / 3581 850 / 850 0 / 0 Output Total 250 / 250 750 / 750 1600 / 1600 Balance 1539 / 1539 2831 / 2831 850 / 850 -1600 / -1600 Physical Exam Oriented: Normal Ear: Normal Nose: Normal Throat: Normal Respiratory: Generalized and Diminished Cardiovascular: Normal Auscultation: Bowel Sounds: Increased Tenderness: Normal Skin: Normal and Wound Musculoskeletal: Back:Thoracic and Back:Lumbar Psychiatric: Normal Mood Description: Calm Affect: Normal Speech Pattern: Clear Laboratory and Diagnostics Result Diagrams: 11/07/19 05:30 11/07/19 05:30 Labs: 11/04/19 09:45 Blood Blood Culture - Preliminary 11/04/19 09:45 Blood Blood Culture - Preliminary 11/02/19 00:55 Blood Blood Culture - Final 11/02/19 00:49 Blood Blood Culture - Final 11/01/19 15:00 Blood Blood Culture - Final 11/01/19 14:55 Blood Blood Culture - Final 11/01/19 21:45 Sputum - Expectorated Sputum Sputum Culture - Final 11/01/19 21:45 Sputum - Expectorated Sputum - Final 11/02/19 09:10 Urine,Clean Catch Urine Culture - Final Laboratory WBC 13.8 X10^3/uL (3.6-10.0) H 11/07/19 05:30 RBC 3.12 X10^6/uL (4.7-6.0) L 11/07/19 05:30 Hgb 8.9 g/dL (13.5-18.0) L 11/07/19 05:30 Hct 26.8 % (42.0-54.0) L 11/07/19 05:30 MCV 85.7 fL (80.0-100.0) 11/07/19 05:30 MCH 28.4 pg (27.0-34.0) 11/07/19 05:30 MCHC 33.1 g/dL (33.0-35.0) 11/07/19 05:30 RDW 16.3 % (11.6-16.5) 11/07/19 05:30 Plt Count 270 X10^3/uL (150.0-450.0) 11/07/19 05:30 Plt Count Comment Adequate (ADEQUATE) 11/04/19 08:18 MPV 8.3 fL (7.4-11.0) 11/07/19 05:30 Neut % (Auto) 73.6 % (42.0-75.0) 11/07/19 05:30 Lymph % (Auto) 13.3 % (21.0-51.0) L 11/07/19 05:30 [place] % (Auto) 7.2 % (0.0-13.0) 11/07/19 05:30 Eos % (Auto) 5.3 % (0.9-2.9) H 11/07/19 05:30 Baso % (Auto) 0.6 % (0.2-1.0) 11/07/19 05:30 Neut # (Auto) 10.1 x10^3/uL (2.2-4.8) H 11/07/19 05:30 Lymph # (Auto) 1.8 X10^3/uL (1.3-2.9) 11/07/19 05:30 [place] # (Auto) 1.0 x10^3/uL (0.3-0.8) H 11/07/19 05:30 Eos # (Auto) 0.7 x10^3/uL (0.0-0.2) H 11/07/19 05:30 Baso # (Auto) 0.1 X10^3/uL (0.0-0.1) 11/07/19 05:30 Absolute Nucleated RBC 0.0 /100WBC 11/07/19 05:30 Total Counted 100 11/04/19 08:18 Neutrophils % (Manual) 74 % (39-76) 11/04/19 08:18 Band Neutrophils % 18 % (0-10) H 11/04/19 08:18 Lymphocytes % (Manual) 4 % (13-43) L 11/04/19 08:18 Monocytes % (Manual) 2 % (4-9) L 11/04/19 08:18 Eosinophils % (Manual) 2 % (0-6) 11/04/19 08:18 Plt Morphology Comment Normal (NORMAL) 11/04/19 08:18 RBC Morphology Normal (NORMAL) 11/04/19 08:18 Hypochromasia 1+ A 11/02/19 05:48 Sodium 138 mmol/L (136-145) 11/07/19 05:30 Corrected Sodium TNP 11/07/19 05:30 Potassium 4.1 mmol/L (3.5-5.1) 11/07/19 05:30 Chloride 106 mmol/L (98-107) 11/07/19 05:30 Carbon Dioxide 26.3 mmol/L (21-32) 11/07/19 05:30 BUN 10 mg/dL (7-18) 11/07/19 05:30 Creatinine 1.06 mg/dL (0.70-1.30) 11/07/19 05:30 Est GFR (MDRD) Af Amer > 60 (>60) 11/07/19 05:30 Est GFR (MDRD) Non-Af > 60 (>60) 11/07/19 05:30 Glucose 97 mg/dL (65-99) 11/07/19 05:30 Lactic Acid 0.8 mmol/L (0.4-2.0) 11/02/19 07:55 Calcium 8.7 mg/dL (8.5-10.1) 11/07/19 05:30 Corrected Calcium 10.8 mg/dL (8.5-10.1) H 11/07/19 05:30 Magnesium 1.9 mg/dL (1.7-2.9) 11/06/19 05:40 Total Bilirubin 0.20 mg/dL (0.2-1.0) 11/07/19 05:30 AST 46 Units/L (15-37) H 11/07/19 05:30 ALT 39 Units/L (12-78) 11/07/19 05:30 Alkaline Phosphatase 313 Units/L (46-116) H 11/07/19 05:30 Creatine Kinase 27 Units/L (39-308) L 11/01/19 13:37 CK-MB (CK-2) < 1.0 ng/mL (0-4.0) 11/01/19 13:37 CK/CKMB % Calc 3.7 % (<4) 11/01/19 13:37 Troponin I 0.06 ng/mL (0-1.5) 11/01/19 13:37 Total Protein 6.0 g/dL (6.4-8.2) L 11/07/19 05:30 Albumin 1.4 g/dL (3.4-5.0) L 11/07/19 05:30 Globulin 4.6 g/dL (2.5-4.5) H 11/07/19 05:30 Albumin/Globulin Ratio 0.3 Ratio (1.1-2.1) L 11/07/19 05:30 Total PSA < 0.13 ng/mL (0.13-4.0) L 11/04/19 08:18 Total Testosterone 215 ng/dL (300-720) L 11/03/19 07:09 Specimen Type Catherized urine 11/07/19 04:12 Urine Color Yellow (YELLOW) 11/07/19 04:12 Urine Appearance Hazy (CLEAR) 11/07/19 04:12 Urine pH 5.0 (5.0 - 8.0) 11/07/19 04:12 Ur Specific [place] 1.010 (1.000-1.030) 11/07/19 04:12 Urine Protein 1+ (NEGATIVE) 11/07/19 04:12 Urine Glucose (UA) Negative (NEGATIVE) 11/07/19 04:12 Urine Ketones Negative (NEGATIVE) 11/07/19 04:12 Urine Occult Blood 1+ (NEGATIVE) 11/07/19 04:12 Urine Nitrite Negative (NEGATIVE) 11/07/19 04:12 Urine Bilirubin Negative (NEGATIVE) 11/07/19 04:12 Urine Urobilinogen Normal (NORMAL) 11/07/19 04:12 Ur Leukocyte Esterase Negative (NEGATIVE) 11/07/19 04:12 Urine RBC 0-2 /HPF (0-3) 11/07/19 04:12 Urine WBC 0-2 /HPF (0-5) 11/07/19 04:12 Ur Squamous Epith Cells Few /HPF (NEGATIVE) 11/07/19 04:12 Other Crystals Many /HPF (NEGATIVE) 11/05/19 10:17 Urine Bacteria 2+ /HPF (NEGATIVE) 11/07/19 04:12 Hyaline Casts Few /LPF (NEGATIVE) 11/07/19 04:12 Granular Casts Few /LPF (NEGATIVE) 11/07/19 04:12 Urine Mucus Moderate /HPF (NEGATIVE) 11/02/19 09:10 Ur Culture Indicated? Yes/culture set up 11/07/19 04:12 Ur Random Sodium 62 mmol/L (40-220) 11/02/19 09:10 Stool Description 75g formed brown 11/05/19 08:35 Stl Occult Blood (IFOB) Negative (NEGATIVE) 11/05/19 08:35 Vancomycin Trough 17.4 ug/mL (15-20) 11/05/19 21:05 Influenza Type A Ag Negative-presumptive (NEGATIVE) 11/01/19 15:10 Influenza Type B Ag Negative-presumptive (NEGATIVE) 11/01/19 15:10 Mycoplasma pneumon IgG Negative (NEGATIVE) 11/01/19 13:37 SARS-CoV-2 (PCR) Negative (NEGATIVE) 11/01/19 14:52 Blood Type O POSITIVE 11/02/19 07:55 Antibody Screen Negative 11/02/19 07:55 Crossmatch See Detail 11/02/19 07:55 Plan (1) Generalized weakness: Status: Acute (2) Pneumonia: Status: Acute Qualifiers: Laterality: bilateral Lung location: lower lobe of lung Pneumonia t ype: due to unspecified organism Qualified Code(s): J18.9 - Pneumonia, unspecified organism (3) UTI (urinary tract infection): Status: Acute Qualifiers: Hematuria presence: without hematuria Urinary tract infection type: acute cystitis Qualified Code(s): N30.00 - Acute cystitis without hematuria (4) Hypomagnesemia: Status: Acute (5) Hypokalemia: Status: Acute (6) Anemia: Status: Acute Qualifiers: Anemia type: unspecified type Qualified Code(s): D64.9 - Anemia, unspecified (7) Hypotension: Status: Acute Qualifiers: Hypotension type: hypotension due to hypovolemia Qualified Code(s): I95.89 - Other hypotension; E86.1 - Hypovolemia (8) FARRAH (acute kidney injury): Status: Acute (9) Pancreatic cancer: Status: Acute Qualifiers: Pancreatic malignancy location: unspecified Qualified Code(s): C25.9 - Malignant neoplasm of pancreas, unspecified (10) Urinary retention: Status: Acute
[2019-11-07] MEDS: NYSTATIN POWDER TOP SCH ×2 (08:45→21:27)
[2019-11-07] MEDS: DUONEB 0.5 MG/3 MG (3 mL) NEB SCH ×4 (08:53→20:20)
[2019-11-07] MEDS ORDERED: ZESTRIL TAB 20 MG ONE (09:09)
[2019-11-07] MEDS: FLOMAX PO SCH (09:12)
[2019-11-07] MEDS: DIFLUCAN PO SCH (09:12)
[2019-11-07] MEDS: ZESTRIL TAB 20 MG PO SCH (09:12)
[2019-11-07] MEDS: LOVENOX INJ 40 MG SYR SC SCH (09:13)
[2019-11-07] MEDS: TYLENOL 325 MG TAB PO PRN (16:23)
[2019-11-07] MEDS: PRAVACHOL PO SCH (21:27)
[2019-11-07] MEDS: NORCO 10/325 TAB PO PRN (21:28)
[2019-11-07] MEDS: BUTT CREAM (COMPOUND) TOP PRN (21:30)
[2019-11-07] MEDS: RESTORIL CAP 15 MG PO PRN (21:30)
[2019-11-08] MEDS: ZOSYN VIAL 3.375 GRAMS 3.375 G in NS 100 ML IV + SPIKE MINIBAG* 100 ML IV SCH ×3 (05:01→22:29)
[2019-11-08] MEDS: NEURONTIN CAP 300 MG PO SCH ×3 (05:01→22:29)
[2019-11-08] MEDS: SYNTHROID 175 mcg TAB PO SCH (05:01)
[2019-11-08 06:04] LABS: BASOPHILS # (AUTO) 0.1 X10^3/uL (0.0-0.1); BASOPHILS % (AUTO) 0.6 % (0.2-1.0); EOSINOPHILS # (AUTO) 0.6 x10^3/uL (0.0-0.2); EOSINOPHILS % (AUTO) 4.1 % (0.9-2.9); HEMATOCRIT 27.8 % (42.0-54.0); HEMOGLOBIN 9.1 g/dL (13.5-18.0); LYMPHOCYTES # (AUTO) 2.3 X10^3/uL (1.3-2.9); LYMPHOCYTES % (AUTO) 17.1 % (21.0-51.0); MEAN CORPUSCULAR HEMOGLOBIN 28.3 pg (27.0-34.0); MEAN CORPUSCULAR HGB CONC 32.9 g/dL (33.0-35.0); MEAN PLATELET VOLUME 8.1 fL (7.4-11.0); MONOCYTES # (AUTO) 0.9 x10^3/uL (0.3-0.8); MONOCYTES % (AUTO) 6.9 % (0.0-13.0); NEUTROPHILS # (AUTO) 9.6 x10^3/uL (2.2-4.8); NEUTROPHILS % (AUTO) 71.3 % (42.0-75.0); PLATELET COUNT 282 X10^3/uL (150.0-450.0); RED BLOOD COUNT 3.24 X10^6/uL (4.7-6.0); RED CELL DISTRIBUTION WIDTH 16.4 % (11.6-16.5); WHITE BLOOD COUNT 13.5 X10^3/uL (3.6-10.0)
[2019-11-08 06:23] LABS: BLOOD UREA NITROGEN 10 mg/dL (7-18); CARBON DIOXIDE 28.6 mmol/L (21-32); CHLORIDE 103 mmol/L (98-107); CREATININE 1.14 mg/dL (0.70-1.30); SODIUM 138 mmol/L (136-145); eGFR NON BLACK RACES > 60 (>60)
[2019-11-08] MEDS ORDERED: ZESTRIL TAB 20 MG ONE (08:30)
[2019-11-08] MEDS: LOVENOX INJ 40 MG SYR SC SCH (08:51)
[2019-11-08] MEDS: DIFLUCAN PO SCH (08:51)
[2019-11-08] MEDS: ZESTRIL TAB 20 MG PO SCH (08:51)
[2019-11-08] MEDS: FLOMAX PO SCH (08:52)
[2019-11-08] MEDS: NYSTATIN POWDER TOP SCH ×2 (09:00→21:28)
[2019-11-08] MEDS: DUONEB 0.5 MG/3 MG (3 mL) NEB SCH ×4 (09:28→21:33)
--- NOTE | 2019-11-08 09:47 | PCM.PROG ---
Progress Note Progress Note for Day of Date of Exam: 11/08/19 Subjective Subjective: Patient seen at bedside, no overnight events noted. He has bene afebrile. He states he feels slightly better, worked with PT/OT yesterday. His appetite is slowly improving. Denies N/V/D or abdominal pain. He still has the ribera. Labs: WBC 13.5 Hgb:9.1 BUN/Cr: 10/1.14 K:4.0. Cultures so far negative. Plan: continue PT/OT, continue diflucan and Zosyn till 11/10, swing bed for therapy. Continue home medications. Continue bladder training and remove ribera. Past Medical Family Social History Past Med/Fam/Surg Hx: No changes since H&P Allergies: Allergies niacin Allergy (Verified 09/20/19 10:09) Review of Systems ROS: No change since H&P Vital Signs and I&O's Vital Signs: Temperature 98.5 F Pulse Rate [Right Brachial] 67 Pulse Rate 75 Respiratory Rate 18 Blood Pressure [Right Arm] 135/60 Blood Pressure [Left Arm] 152/68 Blood Pressure 121/52 O2 Sat by Pulse Oximetry 95 Intake and Output: Intake & Output 11/05/19 11/06/19 11/07/19 11/08/19 23:59 23:59 23:59 23:59 Intake Total 3581 / 3581 850 / 850 1032 / 1032 0 / 0 Output Total 750 / 750 3400 / 3400 500 / 500 Balance 2831 / 2831 850 / 850 -2368 / -2368 -500 / -500 Physical Exam Oriented: Normal Ear: Normal Nose: Normal Throat: Normal Respiratory: Generalized and Diminished Cardiovascular: Normal Auscultation: Bowel Sounds: Increased Tenderness: Normal Skin: Normal and Wound Musculoskeletal: Back:Thoracic and Back:Lumbar Psychiatric: Normal Mood Description: Calm Affect: Normal Speech Pattern: Clear Laboratory and Diagnostics Result Diagrams: 11/08/19 05:30 11/08/19 05:30 Labs: 11/04/19 09:45 Blood Blood Culture - Preliminary 11/04/19 09:45 Blood Blood Culture - Preliminary 11/02/19 00:55 Blood Blood Culture - Final 11/02/19 00:49 Blood Blood Culture - Final 11/01/19 15:00 Blood Blood Culture - Final 11/01/19 14:55 Blood Blood Culture - Final 11/01/19 21:45 Sputum - Expectorated Sputum Sputum Culture - Final 11/01/19 21:45 Sputum - Expectorated Sputum - Final 11/02/19 09:10 Urine,Clean Catch Urine Culture - Final Laboratory WBC 13.5 X10^3/uL (3.6-10.0) H 11/08/19 05:30 RBC 3.24 X10^6/uL (4.7-6.0) L 11/08/19 05:30 Hgb 9.1 g/dL (13.5-18.0) L 11/08/19 05:30 Hct 27.8 % (42.0-54.0) L 11/08/19 05:30 MCV 86.0 fL (80.0-100.0) 11/08/19 05:30 MCH 28.3 pg (27.0-34.0) 11/08/19 05:30 MCHC 32.9 g/dL (33.0-35.0) L 11/08/19 05:30 RDW 16.4 % (11.6-16.5) 11/08/19 05:30 Plt Count 282 X10^3/uL (150.0-450.0) 11/08/19 05:30 Plt Count Comment Adequate (ADEQUATE) 11/04/19 08:18 MPV 8.1 fL (7.4-11.0) 11/08/19 05:30 Neut % (Auto) 71.3 % (42.0-75.0) 11/08/19 05:30 Lymph % (Auto) 17.1 % (21.0-51.0) L 11/08/19 05:30 [place] % (Auto) 6.9 % (0.0-13.0) 11/08/19 05:30 Eos % (Auto) 4.1 % (0.9-2.9) H 11/08/19 05:30 Baso % (Auto) 0.6 % (0.2-1.0) 11/08/19 05:30 Neut # (Auto) 9.6 x10^3/uL (2.2-4.8) H 11/08/19 05:30 Lymph # (Auto) 2.3 X10^3/uL (1.3-2.9) 11/08/19 05:30 [place] # (Auto) 0.9 x10^3/uL (0.3-0.8) H 11/08/19 05:30 Eos # (Auto) 0.6 x10^3/uL (0.0-0.2) H 11/08/19 05:30 Baso # (Auto) 0.1 X10^3/uL (0.0-0.1) 11/08/19 05:30 Absolute Nucleated RBC 0.0 /100WBC 11/08/19 05:30 Total Counted 100 11/04/19 08:18 Neutrophils % (Manual) 74 % (39-76) 11/04/19 08:18 Band Neutrophils % 18 % (0-10) H 11/04/19 08:18 Lymphocytes % (Manual) 4 % (13-43) L 11/04/19 08:18 Monocytes % (Manual) 2 % (4-9) L 11/04/19 08:18 Eosinophils % (Manual) 2 % (0-6) 11/04/19 08:18 Plt Morphology Comment Normal (NORMAL) 11/04/19 08:18 RBC Morphology Normal (NORMAL) 11/04/19 08:18 Hypochromasia 1+ A 11/02/19 05:48 Sodium 138 mmol/L (136-145) 11/08/19 05:30 Corrected Sodium TNP 11/08/19 05:30 Potassium 4.0 mmol/L (3.5-5.1) 11/08/19 05:30 Chloride 103 mmol/L (98-107) 11/08/19 05:30 Carbon Dioxide 28.6 mmol/L (21-32) 11/08/19 05:30 BUN 10 mg/dL (7-18) 11/08/19 05:30 Creatinine 1.14 mg/dL (0.70-1.30) 11/08/19 05:30 Est GFR (MDRD) Af Amer > 60 (>60) 11/08/19 05:30 Est GFR (MDRD) Non-Af > 60 (>60) 11/08/19 05:30 Glucose 109 mg/dL (65-99) H 11/08/19 05:30 Lactic Acid 0.8 mmol/L (0.4-2.0) 11/02/19 07:55 Calcium 9.0 mg/dL (8.5-10.1) 11/08/19 05:30 Corrected Calcium 10.8 mg/dL (8.5-10.1) H 11/07/19 05:30 Magnesium 1.9 mg/dL (1.7-2.9) 11/06/19 05:40 Total Bilirubin 0.20 mg/dL (0.2-1.0) 11/07/19 05:30 AST 46 Units/L (15-37) H 11/07/19 05:30 ALT 39 Units/L (12-78) 11/07/19 05:30 Alkaline Phosphatase 313 Units/L (46-116) H 11/07/19 05:30 Creatine Kinase 27 Units/L (39-308) L 11/01/19 13:37 CK-MB (CK-2) < 1.0 ng/mL (0-4.0) 11/01/19 13:37 CK/CKMB % Calc 3.7 % (<4) 11/01/19 13:37 Troponin I 0.06 ng/mL (0-1.5) 11/01/19 13:37 Total Protein 6.0 g/dL (6.4-8.2) L 11/07/19 05:30 Albumin 1.4 g/dL (3.4-5.0) L 11/07/19 05:30 Globulin 4.6 g/dL (2.5-4.5) H 11/07/19 05:30 Albumin/Globulin Ratio 0.3 Ratio (1.1-2.1) L 11/07/19 05:30 Total PSA < 0.13 ng/mL (0.13-4.0) L 11/04/19 08:18 Total Testosterone 215 ng/dL (300-720) L 11/03/19 07:09 Specimen Type Catherized urine 11/07/19 04:12 Urine Color Yellow (YELLOW) 11/07/19 04:12 Urine Appearance Hazy (CLEAR) 11/07/19 04:12 Urine pH 5.0 (5.0 - 8.0) 11/07/19 04:12 Ur Specific [place] 1.010 (1.000-1.030) 11/07/19 04:12 Urine Protein 1+ (NEGATIVE) 11/07/19 04:12 Urine Glucose (UA) Negative (NEGATIVE) 11/07/19 04:12 Urine Ketones Negative (NEGATIVE) 11/07/19 04:12 Urine Occult Blood 1+ (NEGATIVE) 11/07/19 04:12 Urine Nitrite Negative (NEGATIVE) 11/07/19 04:12 Urine Bilirubin Negative (NEGATIVE) 11/07/19 04:12 Urine Urobilinogen Normal (NORMAL) 11/07/19 04:12 Ur Leukocyte Esterase Negative (NEGATIVE) 11/07/19 04:12 Urine RBC 0-2 /HPF (0-3) 11/07/19 04:12 Urine WBC 0-2 /HPF (0-5) 11/07/19 04:12 Ur Squamous Epith Cells Few /HPF (NEGATIVE) 11/07/19 04:12 Other Crystals Many /HPF (NEGATIVE) 11/05/19 10:17 Urine Bacteria 2+ /HPF (NEGATIVE) 11/07/19 04:12 Hyaline Casts Few /LPF (NEGATIVE) 11/07/19 04:12 Granular Casts Few /LPF (NEGATIVE) 11/07/19 04:12 Urine Mucus Moderate /HPF (NEGATIVE) 11/02/19 09:10 Ur Culture Indicated? Yes/culture set up 11/07/19 04:12 Ur Random Sodium 62 mmol/L (40-220) 11/02/19 09:10 Stool Description 75g formed brown 11/05/19 08:35 Stl Occult Blood (IFOB) Negative (NEGATIVE) 11/05/19 08:35 Vancomycin Trough 17.4 ug/mL (15-20) 11/05/19 21:05 Influenza Type A Ag Negative-presumptive (NEGATIVE) 11/01/19 15:10 Influenza Type B Ag Negative-presumptive (NEGATIVE) 11/01/19 15:10 Mycoplasma pneumon IgG Negative (NEGATIVE) 11/01/19 13:37 SARS-CoV-2 (PCR) Negative (NEGATIVE) 11/01/19 14:52 Blood Type O POSITIVE 11/02/19 07:55 Antibody Screen Negative 11/02/19 07:55 Crossmatch See Detail 11/02/19 07:55 Plan (1) Generalized weakness: Status: Acute (2) Pneumonia: Status: Acute Qualifiers: Laterality: bilateral Lung location: lower lobe of lung Pneumonia type: due to unspecified organism Qualified Code(s): J18.9 - Pneumonia, unspecified organism (3) UTI (urinary tract infection): Status: Acute Qualifiers: Hematuria presence: without hematuria Urinary tract infection type: acute cystitis Qualified Code(s): N30.00 - Acute cystitis without hematuria (4) Hypomagnesemia: Status: Acute (5) Hypokalemia: Status: Acute (6) Anemia: Status: Acute Qualifiers: Anemia type: unspecified type Qualified Code(s): D64.9 - Anemia, unspecified (7) Hypotension: Status: Acute Qualifiers: Hypotension type: hypotension due to hypovolemia Qualified Code(s): I95.89 - Other hypotension; E86.1 - Hypovolemia (8) FARRAH (acute kidney injury): Status: Acute (9) Pancreatic cancer: Status: Acute Qualifiers: Pancreatic malignancy location: unspecified Qualified Code(s): C25.9 - Malignant neoplasm of pancreas, unspecified (10) Urinary retention: Status: Acute
[2019-11-08] MEDS: NORCO 10/325 TAB PO PRN (21:15)
[2019-11-08] MEDS: RESTORIL CAP 15 MG PO PRN (21:25)
[2019-11-08] MEDS: PRAVACHOL PO SCH (21:29)
[2019-11-09] MEDS ORDERED: ZOSYN VIAL 3.375 GRAMS IV ONE (05:57)
[2019-11-09] MEDS ORDERED: NS 100 ML IV 100 ML IV ONE (05:57)
[2019-11-09] MEDS: NEURONTIN CAP 300 MG PO SCH ×3 (06:30→21:38)
[2019-11-09] MEDS: ZOSYN VIAL 3.375 GRAMS 3.375 G in NS 100 ML IV + SPIKE MINIBAG* 100 ML IV SCH ×3 (06:30→21:38)
[2019-11-09] MEDS: SYNTHROID 175 mcg TAB PO SCH (06:31)
[2019-11-09 06:39] LABS: BASOPHILS # (AUTO) 0.1 X10^3/uL (0.0-0.1); BASOPHILS % (AUTO) 0.6 % (0.2-1.0); EOSINOPHILS # (AUTO) 0.4 x10^3/uL (0.0-0.2); EOSINOPHILS % (AUTO) 3.5 % (0.9-2.9); HEMATOCRIT 27.8 % (42.0-54.0); HEMOGLOBIN 9.2 g/dL (13.5-18.0); LYMPHOCYTES # (AUTO) 2.2 X10^3/uL (1.3-2.9); LYMPHOCYTES % (AUTO) 18.2 % (21.0-51.0); MEAN CORPUSCULAR HEMOGLOBIN 28.2 pg (27.0-34.0); MEAN CORPUSCULAR HGB CONC 32.9 g/dL (33.0-35.0); MEAN CORPUSCULAR VOLUME 85.5 fL (80.0-100.0); MONOCYTES # (AUTO) 0.8 x10^3/uL (0.3-0.8); MONOCYTES % (AUTO) 6.9 % (0.0-13.0); NEUTROPHILS # (AUTO) 8.4 x10^3/uL (2.2-4.8); NEUTROPHILS % (AUTO) 70.8 % (42.0-75.0); PLATELET COUNT 292 X10^3/uL (150.0-450.0); RED BLOOD COUNT 3.25 X10^6/uL (4.7-6.0); RED CELL DISTRIBUTION WIDTH 15.9 % (11.6-16.5); WHITE BLOOD COUNT 11.9 X10^3/uL (3.6-10.0)
[2019-11-09 06:53] LABS: BLOOD UREA NITROGEN 10 mg/dL (7-18); CALCIUM 8.9 mg/dL (8.5-10.1); CARBON DIOXIDE 29.2 mmol/L (21-32); CHLORIDE 102 mmol/L (98-107); CREATININE 1.07 mg/dL (0.70-1.30); SODIUM 136 mmol/L (136-145); eGFR NON BLACK RACES > 60 (>60)
--- NOTE | 2019-11-09 08:16 | PCM.PROG ---
Progress Note Progress Note for Day of Date of Exam: 11/09/19 Subjective Subjective: Patient seen at beside, no overnight events, afebrile. He is doing better, appetite still down but continues to improve. Patient will be changed to swing bed status for rehab. Labs: WBC 11.9 Hgb:9.2 BUN/Cr: 10.07 K:3.9. Cultures so far negative. Plan: continue PT/OT, continue diflucan and Zosyn till 11/10, swing bed for therapy. Continue home medications. Continue bladder training and remove ribera. Will add iron supplements. Past Medical Family Social History Past Med/Fam/Surg Hx: No changes since H&P Allergies: Allergies niacin Allergy (Verified 09/20/19 10:09) Review of Systems ROS: No change since H&P Vital Signs and I&O's Vital Signs: Temperature 98.9 F Pulse Rate [Left Brachial] 86 Pulse Rate [Right Brachial] 77 Pulse Rate 80 Respiratory Rate 20 Blood Pressure [Right Arm] 132/62 Blood Pressure [Left Arm] 99/60 Blood Pressure 121/52 O2 Sat by Pulse Oximetry 98 Intake and Output: Intake & Output 11/06/19 11/07/19 11/08/19 11/09/19 23:59 23:59 23:59 23:59 Intake Total 850 / 850 1032 / 1032 1370 / 1370 60 / 60 Output Total 3400 / 3400 2450 / 2450 1200 / 1200 Balance 850 / 850 -2368 / -2368 -1080 / -1080 -1140 / -1140 Physical Exam Oriented: Normal Ear: Normal Nose: Normal Throat: Normal Respiratory: Generalized and Diminished Cardiovascular: Normal Auscultation: Bowel Sounds: Increased Tenderness: Normal Skin: Normal and Wound Musculoskeletal: Back:Thoracic and Back:Lumbar Psychiatric: Normal Mood Description: Calm Affect: Normal Speech Pattern: Clear and Appropriate Laboratory and Diagnostics Result Diagrams: 11/09/19 05:26 11/09/19 05:26 Labs: 11/07/19 04:12 Urine,Catheterized Urine Culture - Preliminary 11/04/19 09:45 Blood Blood Culture - Preliminary 11/04/19 09:45 Blood Blood Culture - Preliminary 11/02/19 00:55 Blood Blood Culture - Final 11/02/19 00:49 Blood Blood Culture - Final 11/01/19 15:00 Blood Blood Culture - Final 11/01/19 14:55 Blood Blood Culture - Final 11/01/19 21:45 Sputum - Expectorated Sputum Sputum Culture - Final 11/01/19 21:45 Sputum - Expectorated Sputum - Final 11/02/19 09:10 Urine,Clean Catch Urine Culture - Final Laboratory WBC 11.9 X10^3/uL (3.6-10.0) H 11/09/19 05:26 RBC 3.25 X10^6/uL (4.7-6.0) L 11/09/19 05:26 Hgb 9.2 g/dL (13.5-18.0) L 11/09/19 05:26 Hct 27.8 % (42.0-54.0) L 11/09/19 05:26 MCV 85.5 fL (80.0-100.0) 11/09/19 05:26 MCH 28.2 pg (27.0-34.0) 11/09/19 05:26 MCHC 32.9 g/dL (33.0-35.0) L 11/09/19 05:26 RDW 15.9 % (11.6-16.5) 11/09/19 05:26 Plt Count 292 X10^3/uL (150.0-450.0) 11/09/19 05:26 Plt Count Comment Adequate (ADEQUATE) 11/04/19 08:18 MPV 8.0 fL (7.4-11.0) 11/09/19 05:26 Neut % (Auto) 70.8 % (42.0-75.0) 11/09/19 05:26 Lymph % (Auto) 18.2 % (21.0-51.0) L 11/09/19 05:26 [place] % (Auto) 6.9 % (0.0-13.0) 11/09/19 05:26 Eos % (Auto) 3.5 % (0.9-2.9) H 11/09/19 05:26 Baso % (Auto) 0.6 % (0.2-1.0) 11/09/19 05:26 Neut # (Auto) 8.4 x10^3/uL (2.2-4.8) H 11/09/19 05:26 Lymph # (Auto) 2.2 X10^3/uL (1.3-2.9) 11/09/19 05:26 [place] # (Auto) 0.8 x10^3/uL (0.3-0.8) 11/09/19 05:26 Eos # (Auto) 0.4 x10^3/uL (0.0-0.2) H 11/09/19 05:26 Baso # (Auto) 0.1 X10^3/uL (0.0-0.1) 11/09/19 05:26 Absolute Nucleated RBC 0.0 /100WBC 11/09/19 05:26 Total Counted 100 11/04/19 08:18 Neutrophils % (Manual) 74 % (39-76) 11/04/19 08:18 Band Neutrophils % 18 % (0-10) H 11/04/19 08:18 Lymphocytes % (Manual) 4 % (13-43) L 11/04/19 08:18 Monocytes % (Manual) 2 % (4-9) L 11/04/19 08:18 Eosinophils % (Manual) 2 % (0-6) 11/04/19 08:18 Plt Morphology Comment Normal (NORMAL) 11/04/19 08:18 RBC Morphology Normal (NORMAL) 11/04/19 08:18 Hypochromasia 1+ A 11/02/19 05:48 Sodium 136 mmol/L (136-145) 11/09/19 05:26 Corrected Sodium TNP 11/09/19 05:26 Potassium 3.9 mmol/L (3.5-5.1) 11/09/19 05:26 Chloride 102 mmol/L (98-107) 11/09/19 05:26 Carbon Dioxide 29.2 mmol/L (21-32) 11/09/19 05:26 BUN 10 mg/dL (7-18) 11/09/19 05:26 Creatinine 1.07 mg/dL (0.70-1.30) 11/09/19 05:26 Est GFR (MDRD) Af Amer > 60 (>60) 11/09/19 05:26 Est GFR (MDRD) Non-Af > 60 (>60) 11/09/19 05:26 Glucose 92 mg/dL (65-99) 11/09/19 05:26 Lactic Acid 0.8 mmol/L (0.4-2.0) 11/02/19 07:55 Calcium 8.9 mg/dL (8.5-10.1) 11/09/19 05:26 Corrected Calcium 10.8 mg/dL (8.5-10.1) H 11/07/19 05:30 Magnesium 1.9 mg/dL (1.7-2.9) 11/06/19 05:40 Total Bilirubin 0.20 mg/dL (0.2-1.0) 11/07/19 05:30 AST 46 Units/L (15-37) H 11/07/19 05:30 ALT 39 Units/L (12-78) 11/07/19 05:30 Alkaline Phosphatase 313 Units/L (46-116) H 11/07/19 05:30 Creatine Kinase 27 Units/L (39-308) L 11/01/19 13:37 CK-MB (CK-2) < 1.0 ng/mL (0-4.0) 11/01/19 13:37 CK/CKMB % Calc 3.7 % (<4) 11/01/19 13:37 Troponin I 0.06 ng/mL (0-1.5) 11/01/19 13:37 Total Protein 6.0 g/dL (6.4-8.2) L 11/07/19 05:30 Albumin 1.4 g/dL (3.4-5.0) L 11/07/19 05:30 Globulin 4.6 g/dL (2.5-4.5) H 11/07/19 05:30 Albumin/Globulin Ratio 0.3 Ratio (1.1-2.1) L 11/07/19 05:30 Total PSA < 0.13 ng/mL (0.13-4.0) L 11/04/19 08:18 Total Estradiol 44.4 pg/mL (10.0-42.0) H 11/03/19 07:09 Total Testosterone 215 ng/dL (300-720) L 11/03/19 07:09 Specimen Type Catherized urine 11/07/19 04:12 Urine Color Yellow (YELLOW) 11/07/19 04:12 Urine Appearance Hazy (CLEAR) 11/07/19 04:12 Urine pH 5.0 (5.0 - 8.0) 11/07/19 04:12 Ur Specific [place] 1.010 (1.000-1.030) 11/07/19 04:12 Urine Protein 1+ (NEGATIVE) 11/07/19 04:12 Urine Glucose (UA) Negative (NEGATIVE) 11/07/19 04:12 Urine Ketones Negative (NEGATIVE) 11/07/19 04:12 Urine Occult Blood 1+ (NEGATIVE) 11/07/19 04:12 Urine Nitrite Negative (NEGATIVE) 11/07/19 04:12 Urine Bilirubin Negative (NEGATIVE) 11/07/19 04:12 Urine Urobilinogen Normal (NORMAL) 11/07/19 04:12 Ur Leukocyte Esterase Negative (NEGATIVE) 11/07/19 04:12 Urine RBC 0-2 /HPF (0-3) 11/07/19 04:12 Urine WBC 0-2 /HPF (0-5) 11/07/19 04:12 Ur Squamous Epith Cells Few /HPF (NEGATIVE) 11/07/19 04:12 Other Crystals Many /HPF (NEGATIVE) 11/05/19 10:17 Urine Bacteria 2+ /HPF (NEGATIVE) 11/07/19 04:12 Hyaline Casts Few /LPF (NEGATIVE) 11/07/19 04:12 Granular Casts Few /LPF (NEGATIVE) 11/07/19 04:12 Urine Mucus Moderate /HPF (NEGATIVE) 11/02/19 09:10 Ur Culture Indicated? Yes/culture set up 11/07/19 04:12 Ur Random Sodium 62 mmol/L (40-220) 11/02/19 09:10 Stool Description 75g formed brown 11/05/19 08:35 Stl Occult Blood (IFOB) Negative (NEGATIVE) 11/05/19 08:35 Vancomycin Trough 17.4 ug/mL (15-20) 11/05/19 21:05 Influenza Type A Ag Negative-presumptive (NEGATIVE) 11/01/19 15:10 Influenza Type B Ag Negative-presumptive (NEGATIVE) 11/01/19 15:10 Mycoplasma pneumon IgG Negative (NEGATIVE) 11/01/19 13:37 SARS-CoV-2 (PCR) Negative (NEGATIVE) 11/01/19 14:52 Blood Type O POSITIVE 11/02/19 07:55 Antibody Screen Negative 11/02/19 07:55 Crossmatch See Detail 11/02/19 07:55 Plan (1) Generalized weakness: Status: Acute (2) Pneumonia: Status: Acute Qualifiers: Laterality: bilateral Lung location: lower lobe of lung Pneumonia type: due to unspecified organism Qualified Code(s): J18.9 - Pneumonia, unspecified organism (3) UTI (urinary tract infection): Status: Acute Qualifiers: Hematuria presence: without hematuria Urinary tract infection type: acute cystitis Qualified Code(s): N30.00 - Acute cystitis without hematuria (4) Hypomagnesemia: Status: Acute (5) Hypokalemia: Status: Acute (6) Anemia: Status: Acute Qualifiers: Anemia type: unspecified type Qualified Code(s): D64.9 - Anemia, unspecified (7) Hypotension: Status: Acute Qualifiers: Hypotension type: hypotension due to hypovolemia Qualified Code(s): I95.89 - Other hypotension; E86.1 - Hypovolemia (8) FARRAH (acute kidney injury): Status: Acute (9) Pancreatic cancer: Status: Acute Qualifiers: Pancreatic malignancy location: unspecified Qualified Code(s): C25.9 - Malignant neoplasm of pancreas, unspecified (10) Urinary retention: Status: Acute
[2019-11-09] MEDS ORDERED: ZESTRIL TAB 20 MG ONE (08:46)
[2019-11-09] MEDS: DUONEB 0.5 MG/3 MG (3 mL) NEB SCH ×4 (09:15→20:12)
[2019-11-09] MEDS: DIFLUCAN PO SCH (09:45)
[2019-11-09] MEDS: NYSTATIN POWDER TOP SCH ×2 (09:46→20:19)
[2019-11-09] MEDS: FLOMAX PO SCH (09:46)
[2019-11-09] MEDS: LOVENOX INJ 40 MG SYR SC SCH (09:46)
[2019-11-09] MEDS: ZESTRIL TAB 20 MG PO SCH (09:46)
[2019-11-09] MEDS ORDERED: NS 250 ML IV 250 ML IV ONE (14:17)
[2019-11-09] MEDS: TYLENOL 325 MG TAB PO PRN (15:39)
[2019-11-09] MEDS: FERROUS GLUCONATE PO SCH (17:07)
[2019-11-09] MEDS: NORCO 10/325 TAB PO PRN (20:20)
[2019-11-09] MEDS: PRAVACHOL PO SCH (20:20)
[2019-11-09] MEDS ORDERED: NS 500 ML IV 500 ML IV ONE (20:48)
[2019-11-10 06:19] LABS: BASOPHILS # (AUTO) 0.2 X10^3/uL (0.0-0.1); BASOPHILS % (AUTO) 0.3 % (0.2-1.0); EOSINOPHILS # (AUTO) 0.1 x10^3/uL (0.0-0.2); EOSINOPHILS % (AUTO) 0.1 % (0.9-2.9); HEMATOCRIT 28.5 % (42.0-54.0); HEMOGLOBIN 9.2 g/dL (13.5-18.0); LYMPHOCYTES # (AUTO) 3.1 X10^3/uL (1.3-2.9); LYMPHOCYTES % (AUTO) 6.6 % (21.0-51.0); MEAN CORPUSCULAR HGB CONC 32.3 g/dL (33.0-35.0); MEAN CORPUSCULAR VOLUME 86.6 fL (80.0-100.0); MEAN PLATELET VOLUME 8.3 fL (7.4-11.0); MONOCYTES # (AUTO) 1.3 x10^3/uL (0.3-0.8); MONOCYTES % (AUTO) 2.7 % (0.0-13.0); NEUTROPHILS # (AUTO) 42.3 x10^3/uL (2.2-4.8); NEUTROPHILS % (AUTO) 90.3 % (42.0-75.0); PLATELET COUNT 275 X10^3/uL (150.0-450.0); RED BLOOD COUNT 3.29 X10^6/uL (4.7-6.0); RED CELL DISTRIBUTION WIDTH 16.5 % (11.6-16.5)
[2019-11-10 06:30] LABS: ALBUMIN 1.4 g/dL (3.4-5.0); CALCIUM 8.7 mg/dL (8.5-10.1); CARBON DIOXIDE 30.3 mmol/L (21-32); COR CA(FOR HYPOALB) 10.8 mg/dL (8.5-10.1); CREATININE 1.47 mg/dL (0.70-1.30)
[2019-11-10 06:32] LABS: WHITE BLOOD COUNT 46.9 X10^3/uL (3.6-10.0)
[2019-11-10] MEDS: NEURONTIN CAP 300 MG PO SCH ×3 (06:46→21:50)
[2019-11-10] MEDS: SYNTHROID 175 mcg TAB PO SCH (06:46)
[2019-11-10] MEDS: FERROUS GLUCONATE PO SCH ×2 (06:47→17:00)
[2019-11-10] MEDS: ZOSYN VIAL 3.375 GRAMS 3.375 G in NS 100 ML IV + SPIKE MINIBAG* 100 ML IV SCH ×3 (06:47→21:50)
[2019-11-10 07:18] LABS: BAND NEUTROPHILS % 3 % (0-10); PLATELET MORPHOLOGY COMMENT NORMAL (NORMAL)
--- NOTE | 2019-11-10 07:18 | RAD ---
HISTORYSOB pancreatic CASTUDYPortable AP [id number] heart size, upper normal. There are ill-defined lower lobe infiltrates now present. No evidence for tashi pulmonary edema, pneumothorax or large pleural effusion.IMPRESSIONBibasal infiltrates/pneumonia, similar on the right and increasing in the left lower lobe since previous exam.Electronically signed by: JULY CAMPUZANO (Nov 10, 2019 07:17:16)
[2019-11-10] MEDS ORDERED: ZESTRIL TAB 20 MG ONE (08:56)
[2019-11-10] MEDS: DUONEB 0.5 MG/3 MG (3 mL) NEB SCH ×4 (09:06→21:15)
[2019-11-10] MEDS: ZESTRIL TAB 20 MG PO SCH (09:30)
[2019-11-10] MEDS: FLOMAX PO SCH (09:30)
[2019-11-10] MEDS: DIFLUCAN PO SCH (09:30)
[2019-11-10] MEDS: LOVENOX INJ 40 MG SYR SC SCH (09:31)
[2019-11-10] MEDS: NYSTATIN POWDER TOP SCH ×2 (09:31→20:37)
[2019-11-10 12:03] LABS: BASOPHILS # (AUTO) 0.1 X10^3/uL (0.0-0.1); BASOPHILS % (AUTO) 0.2 % (0.2-1.0); EOSINOPHILS # (AUTO) 0.2 x10^3/uL (0.0-0.2); EOSINOPHILS % (AUTO) 0.6 % (0.9-2.9); HEMATOCRIT 27.6 % (42.0-54.0); HEMOGLOBIN 8.8 g/dL (13.5-18.0); LYMPHOCYTES # (AUTO) 3.5 X10^3/uL (1.3-2.9); LYMPHOCYTES % (AUTO) 9.3 % (21.0-51.0); MEAN CORPUSCULAR HEMOGLOBIN 27.9 pg (27.0-34.0); MEAN CORPUSCULAR VOLUME 87.1 fL (80.0-100.0); MEAN PLATELET VOLUME 8.7 fL (7.4-11.0); MONOCYTES # (AUTO) 1.3 x10^3/uL (0.3-0.8); MONOCYTES % (AUTO) 3.5 % (0.0-13.0); NEUTROPHILS # (AUTO) 32.4 x10^3/uL (2.2-4.8); NEUTROPHILS % (AUTO) 86.4 % (42.0-75.0); PLATELET COUNT 255 X10^3/uL (150.0-450.0); RED BLOOD COUNT 3.17 X10^6/uL (4.7-6.0); RED CELL DISTRIBUTION WIDTH 16.1 % (11.6-16.5)
[2019-11-10 12:06] LABS: WHITE BLOOD COUNT 37.6 X10^3/uL (3.6-10.0)
[2019-11-10 12:07] LABS: BAND NEUTROPHILS % 4 % (0-10)
[2019-11-10 12:08] LABS: METAMYELOCYTES % 1; MYELOCYTES % 1; PLATELET MORPHOLOGY COMMENT NORMAL (NORMAL)
--- NOTE | 2019-11-10 12:26 | PCM.PROG ---
Progress Note - Progress Note for Day of Date of Exam: 11/10/19 - Subjective Subjective: IS A 89 YEAR OLD PATIENT OF . HE IS BEING TREATED FOR BILATERAL PNEUMONIA. HE HAS HAD A RECENT DIAGNOSIS OF PANCREATIC CANCER AND HAS HAD RECURRENT ADMISSION HERE FOR SEPSIS. TODAY, HE IS ALERT AND ORIENTED, LYING IN BED ON MORNING ROUNDS. HE CONTINUES WITH SHORTNESS OF BREATH TODAY. HE ALSO REPORTS DIFFUSE ABDOMINAL PAIN. PAIN IS RATED 5/10 THIS MORNING. HE ALSO REPORTS SOME CHRONIC BACK PAIN. ON EXAMINATION, HEART IS REGULAR IN RATE AND RHYTHM. BILATERAL LUNGS ARE NOTED WITH DIMINISHED LUNG SOUNDS THROUGHOUT. ABDOMEN IS ROUND, SOFT, AND NOTED WITH DIFFUSE TENDERNESS TO PALPATION. NORMAL BOWEL SOUNDS ARE NOTED IN ALL QUADRANTS. A [employer] CATHETER IS NOTED TO BEDSIDE DRAINAGE. HIS VITALS THIS MORNING ARE: 98.3-72-20-98%-117/57. LABS WERE OBTAINED. ABNORMAL LAB VALUES INCLUDE THE FOLLOWING: WBC INCREASED TO 46.9 FROM 11.9 YESTERDAY. RBC 3.29, HGB 9.2, HCT 28.5, CREATININE 1.47, GLUCOSE 129, ALK PHOS 272, TOTAL PROTEIN 6.0, ALBUMIN 1.4. WE REPEATED A LACTIC ACID. IT WAS NORMAL. TODAYS CHEST XRAY REVEALED: Bibasal infiltrates/pneumonia, similar on the right and increasing in the left lower lobe since previous exam. HE IS CURRENTLY RECEIVING ZOSYN 3.75G IV TID, DUONEBS QID, LOVENOX 40MG SC DAILY, DIFLUCAN 100MG PO DAILY, NORCO 10/325MG PO Q8H PRN, AND HIS HOME MEDICATIONS. TODAY, WE WILL REPEAT BLOOD AND SPUTUM CULTURES AND BLOOD SMEAR FOR PATHOLOGY REVIEW. WE WILL OBTAIN AN ABDOMEN/PELVIS CT WITH CONTRAST. OTHERWISE, WE PLAN TO FOLLOW UP WITH AM LABS AND CONTINUE TO MONITOR. - Past Medical Family Social History Past Med/Fam/Surg Hx: No changes since H&P Allergies: Allergies niacin Allergy (Verified 09/20/19 10:09) - Review of Systems ROS: No change since H&P - Vital Signs and I&O's Vital Signs: Temperature 98.3 F Pulse Rate [Left Brachial] 72 Pulse Rate [Right Brachial] 93 Pulse Rate 67 Respiratory Rate 20 Blood Pressure [Right Arm] 117/57 Blood Pressure [Left Arm] 99/60 Blood Pressure 121/52 O2 Sat by Pulse Oximetry 88 Intake and Output: Intake & Output 11/08/19 11/09/19 11/10/19 11/11/19 11:59 11:59 11:59 11:59 Intake Total 1032 / 1032 1430 / 1430 1534 / 1534 Output Total 2300 / 2300 3150 / 3150 1900 / 1900 Balance -1268 / -1268 -1720 / -1720 -366 / -366 - Physical Exam Oriented: Normal Ear: Normal Nose: Normal Throat: Normal Respiratory: Generalized, Diminished Cardiovascular: Normal : Normal Auscultation: Bowel Sounds: Normal Palpation: Normal Tenderness: Diffuse, Mild Skin: Normal, Wound Musculoskeletal: Back:Thoracic, Back:Lumbar Psychiatric: Normal Mood Description: Calm Affect: Normal Speech Pattern: Clear, Appropriate - Laboratory and Diagnostics Result Diagrams: 11/10/19 11:40 11/10/19 05:15 Labs: 11/04/19 09:45 Blood Blood Culture - Final 11/04/19 09:45 Blood Blood Culture - Final 11/07/19 04:12 Urine,Catheterized Urine Culture - Final 11/02/19 00:55 Blood Blood Culture - Final 11/02/19 00:49 Blood Blood Culture - Final 11/01/19 15:00 Blood Blood Culture - Final 11/01/19 14:55 Blood Blood Culture - Final 11/01/19 21:45 Sputum - Expectorated Sputum Sputum Culture - Final 11/01/19 21:45 Sputum - Expectorated Sputum - Final 11/02/19 09:10 Urine,Clean Catch Urine Culture - Final Laboratory WBC 37.6 X10^3/uL (3.6-10.0) H* D 11/10/19 11:40 RBC 3.17 X10^6/uL (4.7-6.0) L 11/10/19 11:40 Hgb 8.8 g/dL (13.5-18.0) L 11/10/19 11:40 Hct 27.6 % (42.0-54.0) L 11/10/19 11:40 MCV 87.1 fL (80.0-100.0) 11/10/19 11:40 MCH 27.9 pg (27.0-34.0) 11/10/19 11:40 MCHC 32.0 g/dL (33.0-35.0) L 11/10/19 11:40 RDW 16.1 % (11.6-16.5) 11/10/19 11:40 Plt Count 255 X10^3/uL (150.0-450.0) 11/10/19 11:40 Plt Count Comment Adequate (ADEQUATE) 11/10/19 11:40 MPV 8.7 fL (7.4-11.0) 11/10/19 11:40 Neut % (Auto) 86.4 % (42.0-75.0) H 11/10/19 11:40 Lymph % (Auto) 9.3 % (21.0-51.0) L 11/10/19 11:40 [place] % (Auto) 3.5 % (0.0-13.0) 11/10/19 11:40 Eos % (Auto) 0.6 % (0.9-2.9) L 11/10/19 11:40 Baso % (Auto) 0.2 % (0.2-1.0) 11/10/19 11:40 Neut # (Auto) 32.4 x10^3/uL (2.2-4.8) H 11/10/19 11:40 Lymph # (Auto) 3.5 X10^3/uL (1.3-2.9) H 11/10/19 11:40 [place] # (Auto) 1.3 x10^3/uL (0.3-0.8) H 11/10/19 11:40 Eos # (Auto) 0.2 x10^3/uL (0.0-0.2) 11/10/19 11:40 Baso # (Auto) 0.1 X10^3/uL (0.0-0.1) 11/10/19 11:40 Absolute Nucleated RBC 0.0 /100WBC 11/10/19 11:40 Total Counted 100 11/10/19 11:40 Neutrophils % (Manual) 84 % (39-76) H 11/10/19 11:40 Band Neutrophils % 4 % (0-10) 11/10/19 11:40 Lymphocytes % (Manual) 7 % (13-43) L 11/10/19 11:40 Monocytes % (Manual) 2 % (4-9) L 11/10/19 11:40 Eosinophils % (Manual) 1 % (0-6) 11/10/19 11:40 Metamyelocytes % 1 11/10/19 11:40 Myelocytes % 1 11/10/19 11:40 Plt Morphology Comment Normal (NORMAL) 11/10/19 11:40 RBC Morphology Normal (NORMAL) 11/10/19 11:40 Hypochromasia 1+ A 11/02/19 05:48 Sodium 138 mmol/L (136-145) 11/10/19 05:15 Corrected Sodium 139 mmol/L (136-145) 11/10/19 05:15 Potassium 4.1 mmol/L (3.5-5.1) 11/10/19 05:15 Chloride 103 mmol/L (98-107) 11/10/19 05:15 Carbon Dioxide 30.3 mmol/L (21-32) 11/10/19 05:15 BUN 14 mg/dL (7-18) 11/10/19 05:15 Creatinine 1.47 mg/dL (0.70-1.30) H 11/10/19 05:15 Est GFR (MDRD) Af Amer 58 (>60) L 11/10/19 05:15 Est GFR (MDRD) Non-Af 48 (>60) L 11/10/19 05:15 Glucose 129 mg/dL (65-99) H 11/10/19 05:15 Lactic Acid 1.8 mmol/L (0.4-2.0) 11/10/19 11:40 Calcium 8.7 mg/dL (8.5-10.1) 11/10/19 05:15 Corrected Calcium 10.8 mg/dL (8.5-10.1) H 11/10/19 05:15 Magnesium 1.9 mg/dL (1.7-2.9) 11/06/19 05:40 Total Bilirubin 0.20 mg/dL (0.2-1.0) 11/10/19 05:15 AST 42 Units/L (15-37) H 11/10/19 05:15 ALT 35 Units/L (12-78) 11/10/19 05:15 Alkaline Phosphatase 272 Units/L (46-116) H 11/10/19 05:15 Creatine Kinase 27 Units/L (39-308) L 11/01/19 13:37 CK-MB (CK-2) < 1.0 ng/mL (0-4.0) 11/01/19 13:37 CK/CKMB % Calc 3.7 % (<4) 11/01/19 13:37 Troponin I 0.06 ng/mL (0-1.5) 11/01/19 13:37 Total Protein 6.0 g/dL (6.4-8.2) L 11/10/19 05:15 Albumin 1.4 g/dL (3.4-5.0) L 11/10/19 05:15 Globulin 4.6 g/dL (2.5-4.5) H 11/10/19 05:15 Albumin/Globulin Ratio 0.3 Ratio (1.1-2.1) L 11/10/19 05:15 Total PSA < 0.13 ng/mL (0.13-4.0) L 11/04/19 08:18 Total Estradiol 44.4 pg/mL (10.0-42.0) H 11/03/19 07:09 Total Testosterone 215 ng/dL (300-720) L 11/03/19 07:09 Specimen Type Catherized urine 11/07/19 04:12 Urine Color Yellow (YELLOW) 11/07/19 04:12 Urine Appearance Hazy (CLEAR) 11/07/19 04:12 Urine pH 5.0 (5.0 - 8.0) 11/07/19 04:12 Ur Specific [place] 1.010 (1.000-1.030) 11/07/19 04:12 Urine Protein 1+ (NEGATIVE) 11/07/19 04:12 Urine Glucose (UA) Negative (NEGATIVE) 11/07/19 04:12 Urine Ketones Negative (NEGATIVE) 11/07/19 04:12 Urine Occult Blood 1+ (NEGATIVE) 11/07/19 04:12 Urine Nitrite Negative (NEGATIVE) 11/07/19 04:12 Urine Bilirubin Negative (NEGATIVE) 11/07/19 04:12 Urine Urobilinogen Normal (NORMAL) 11/07/19 04:12 Ur Leukocyte Esterase Negative (NEGATIVE) 11/07/19 04:12 Urine RBC 0-2 /HPF (0-3) 11/07/19 04:12 Urine WBC 0-2 /HPF (0-5) 11/07/19 04:12 Ur Squamous Epith Cells Few /HPF (NEGATIVE) 11/07/19 04:12 Other Crystals Many /HPF (NEGATIVE) 11/05/19 10:17 Urine Bacteria 2+ /HPF (NEGATIVE) 11/07/19 04:12 Hyaline Casts Few /LPF (NEGATIVE) 11/07/19 04:12 Granular Casts Few /LPF (NEGATIVE) 11/07/19 04:12 Urine Mucus Moderate /HPF (NEGATIVE) 11/02/19 09:10 Ur Culture Indicated? Yes/culture set up 11/07/19 04:12 Ur Random Sodium 62 mmol/L (40-220) 11/02/19 09:10 Stool Description 75g formed brown 11/05/19 08:35 Stl Occult Blood (IFOB) Negative (NEGATIVE) 11/05/19 08:35 Vancomycin Trough 17.4 ug/mL () 11/05/19 21:05 Influenza Type A Ag Negative-presumptive (NEGATIVE) 11/01/19 15:10 Influenza Type B Ag Negative-presumptive (NEGATIVE) 11/01/19 15:10 Mycoplasma pneumon IgG Negative (NEGATIVE) 11/01/19 13:37 SARS-CoV-2 (PCR) Negative (NEGATIVE) 11/01/19 14:52 Blood Type O POSITIVE 11/02/19 07:55 Antibody Screen Negative 11/02/19 07:55 Crossmatch See Detail 11/02/19 07:55 - Plan (1) Bilateral pneumonia Status: Acute Qualifiers: Pneumonia type: due to unspecified organism Lung location: lower lobe of lung Qualified Code(s): J18.9 - Pneumonia, unspecified organism Plan: CONTINUE IV ANTIBIOTICS, NEB [place] (2) Pancreatic cancer Status: Acute Qualifiers: Pancreatic malignancy location: unspecified
--- NOTE | 2019-11-10 15:50 | CT ---
HISTORYAbdominal pain and elevated WBC. Pancreatic cancer.STUDYABDOMEN/PELVIS WITH CONCOMPARISONCT from october 11, 2019. MRI from October 16, 2019.TECHNIQUEMultiple axial images of the abdomen and pelvis were obtained from the lung bases to the pubic symphysis after the administration of IV contrast. 3D multiplanar reconstructions were performed and reviewed. Dose reduction techniques including Automated Exposure Control (AEC) and adjustment of mA and kV were utilized.FINDINGSThere are small bilateral pleural effusions, left greater than right. There is compressive atelectasis and/or airspace disease in the dependent portions of both lung bases.CT abdomen: The liver is normal in appearance, without evidence of mass or focal abnormality. There is no intrahepatic bile duct dilation. The gallbladder is normal in appearance. There is no evidence of cholelithiasis or cholecystitis. There is persistent dilatation of the pancreatic duct. No definitive mass is appreciated in the pancreatic head. Previously noted multilocular cystic structure at the tail of the pancreas and in the spleen is increased in size since the prior CT examination from October 11, 2019. Overall, the spleen also appears increased in size. There is some stranding of fat around the spleen. Both adrenal glands are normal. Both kidneys have a lobular appearance. There is no evidence of nephrolithiasis or hydronephrosis on either side. Enlarged mesenteric lymph node is noted on axial images 31-33.The stomach is normal in appearance. The small bowel is normal in appearance, without evidence of bowel wall thickening or small bowel obstruction.The terminal ilium and cecum are normal in appearance. The appendix is normal in appearance measuring 7 mm in maximum cross-sectional diameter.. There is no significant periappendiceal fat stranding. The ascending and transverse colon are within normal limits. There are multiple diverticula in the descending colon, mainly distally.CT pelvis: There are several diverticula in the proximal sigmoid colon. The rectum is unremarkable. There is a Pope catheter in place. The urinary bladder is decompressed. There are no abnormal fluid collections in the pelvis.IMPRESSION1. Interval increase in size of multilobular fluid collection in the pancreatic tail and spleen. Additionally, the spleen itself appears enlarged. This has previously been defined as a probable pancreatic pseudocyst. Clinical correlation is recommended.2. Diverticulosis, without evidence of diverticulitis.3. Bilateral pleural effusions with compressive atelectasis versus airspace disease.4. Please see above for detail.Electronically signed by: TOM SU (Nov 10, 2019 15:48:41)
[2019-11-10] MEDS: ALBUMIN HUMAN 25%- 100 ML 100 ML IV SCH (18:50)
[2019-11-10] MEDS: NORCO 10/325 TAB PO PRN (19:37)
[2019-11-10] MEDS: PRAVACHOL PO SCH (21:49)
[2019-11-10] MEDS: COLACE CAP 100 MG PO PRN (21:50)
[2019-11-10] MEDS: RESTORIL CAP 15 MG PO PRN (21:50)
[2019-11-11 05:36] LABS: BASOPHILS # (AUTO) 0.1 X10^3/uL (0.0-0.1); BASOPHILS % (AUTO) 0.3 % (0.2-1.0); EOSINOPHILS # (AUTO) 0.4 x10^3/uL (0.0-0.2); EOSINOPHILS % (AUTO) 1.9 % (0.9-2.9); HEMATOCRIT 24.7 % (42.0-54.0); LYMPHOCYTES # (AUTO) 2.2 X10^3/uL (1.3-2.9); LYMPHOCYTES % (AUTO) 10.2 % (21.0-51.0); MEAN CORPUSCULAR HEMOGLOBIN 28.2 pg (27.0-34.0); MEAN CORPUSCULAR HGB CONC 32.5 g/dL (33.0-35.0); MEAN CORPUSCULAR VOLUME 86.9 fL (80.0-100.0); MEAN PLATELET VOLUME 8.9 fL (7.4-11.0); MONOCYTES # (AUTO) 1.1 x10^3/uL (0.3-0.8); MONOCYTES % (AUTO) 4.9 % (0.0-13.0); NEUTROPHILS # (AUTO) 17.8 x10^3/uL (2.2-4.8); NEUTROPHILS % (AUTO) 82.7 % (42.0-75.0); PLATELET COUNT 264 X10^3/uL (150.0-450.0); RED BLOOD COUNT 2.85 X10^6/uL (4.7-6.0); RED CELL DISTRIBUTION WIDTH 16.4 % (11.6-16.5)
[2019-11-11 05:46] LABS: ALANINE AMINOTRANSFERASE 36 Units/L (12-78); ALBUMIN 1.9 g/dL (3.4-5.0); ALKALINE PHOSPHATASE 215 Units/L (46-116); ASPARTATE AMINO TRANSFERASE 38 Units/L (15-37); BLOOD UREA NITROGEN 16 mg/dL (7-18); CARBON DIOXIDE 29.4 mmol/L (21-32); CHLORIDE 103 mmol/L (98-107); COR CA(FOR HYPOALB) 10.7 mg/dL (8.5-10.1); CREATININE 1.25 mg/dL (0.70-1.30); SODIUM 138 mmol/L (136-145); TOTAL PROTEIN 6.1 g/dL (6.4-8.2); eGFR NON BLACK RACES 58 (>60)
[2019-11-11] MEDS: SYNTHROID 175 mcg TAB PO SCH (06:28)
[2019-11-11] MEDS: ZOSYN VIAL 3.375 GRAMS 3.375 G in NS 100 ML IV + SPIKE MINIBAG* 100 ML IV SCH ×3 (06:28→21:41)
[2019-11-11] MEDS: FERROUS GLUCONATE PO SCH ×2 (06:28→16:30)
[2019-11-11] MEDS: NEURONTIN CAP 300 MG PO SCH ×3 (06:28→21:41)
[2019-11-11 06:36] LABS: WHITE BLOOD COUNT 21.5 X10^3/uL (3.6-10.0)
--- NOTE | 2019-11-11 06:36 | RAD ---
CHEST, 1 VIEWHistory: SHORTNESS OF BREATHComparison: 11/10/19Findings: Heart is stable in size. Right basilar opacities have resolved since prior. Patchy infiltrates within the left lung base are unchanged. No significant pleural effusion. No pneumothorax.Impression:Improving right and stable left basilar airspace disease.Electronically signed by: KAYLI FUENTES (Nov 11, 2019 06:35:04)
[2019-11-11 06:37] LABS: BAND NEUTROPHILS % 1 % (0-10); PLATELET MORPHOLOGY COMMENT NORMAL (NORMAL)
[2019-11-11 06:38] LABS: HYPOCHROMASIA SLIGHT
[2019-11-11] MEDS ORDERED: KLOR-CON PO PRN (08:40)
[2019-11-11] MEDS ORDERED: MICRO K EXTEN CAP 10 MEQ PO PRN (08:40)
[2019-11-11] MEDS ORDERED: K-RIDER 10 MEQ/NS 100 ML 10 MEQ/100 ML BAG IV PRN (08:40)
[2019-11-11] MEDS ORDERED: POTASSIUM CHL 40 MEQ/NS 0.45% 500 ML IV PRN (08:40)
[2019-11-11] MEDS ORDERED: POTASSIUM CHLORIDE LIQ 20 MEQ UDC PO PRN (08:40)
[2019-11-11] MEDS ORDERED: K-DUR TAB 20 MEQ PO PRN (08:40)
[2019-11-11] MEDS ORDERED: POTASSIUM CHL 60 MEQ/NS 0.45% 500 ML IV PRN (08:40)
[2019-11-11] MEDS ORDERED: ZESTRIL TAB 20 MG ONE (08:50)
[2019-11-11] MEDS: ZESTRIL TAB 20 MG PO SCH (08:55)
[2019-11-11] MEDS: LOVENOX INJ 40 MG SYR SC SCH (08:56)
[2019-11-11] MEDS: ALBUMIN HUMAN 25%- 100 ML 100 ML IV SCH (08:56)
[2019-11-11] MEDS: DUONEB 0.5 MG/3 MG (3 mL) NEB SCH ×4 (08:57→21:05)
[2019-11-11] MEDS: DIFLUCAN PO SCH (08:58)
[2019-11-11] MEDS: NYSTATIN POWDER TOP SCH ×2 (08:59→20:05)
[2019-11-11] MEDS: FLOMAX PO SCH (08:59)
[2019-11-11] MEDS ORDERED: NS 250 ML IV 250 ML IV ONE (13:33)
[2019-11-11] MEDS: NORCO 10/325 TAB PO PRN (19:55)
[2019-11-11] MEDS: PRAVACHOL PO SCH (21:40)
[2019-11-11] MEDS: RESTORIL CAP 15 MG PO PRN (21:41)
--- NOTE | 2019-11-11 23:19 | PCM.PROG ---
Progress Note - Progress Note for Day of Date of Exam: 11/11/19 - Subjective Subjective: IS A 89 YEAR OLD PATIENT OF . HE IS BEING TREATED FOR BILATERAL PNEUMONIA. HE HAS HAD A RECENT DIAGNOSIS OF PANCREATIC CANCER AND HAS HAD RECURRENT ADMISSION HERE FOR SEPSIS. TODAY, HE IS ALERT AND ORIENTED, LYING IN BED ON MORNING ROUNDS. HE CONTINUES WITH SHORTNESS OF BREATH TODAY. HE REPORTS IMPROVEMENT IN ABDOMINAL PAIN. ON EXAMINATION, HEART IS REGULAR IN RATE AND RHYTHM. BILATERAL LUNGS ARE NOTED WITH DIMINISHED LUNG SOUNDS THROUGHOUT. ABDOMEN IS ROUND, SOFT, AND NOTED WITH DIFFUSE TENDERNESS TO PALPATION. NORMAL BOWEL SOUNDS ARE NOTED IN ALL QUADRANTS. A [employer] CATHETER IS NOTED TO BEDSIDE DRAINAGE. HIS VITALS THIS MORNING ARE: 99.8-71-20-93%[place]-136/63. LABS WERE OBTAINED. ABNORMAL LAB VALUES INCLUDE THE FOLLOWING: WBC DECREASED TO 21.5, RBC 2.85, HGB 8.0, HCT 24.7, GLUCOSE 105, TOTAL BILI 0.10, AST 38, ALK PHOS 215, TOTAL PROTEIN 6.1, ALBUMIN 1.9. TODAYS CHEST XRAY REVEALED: proving right and stable left basilar airspace disease. HE IS CURRENTLY RECEIVING ZOSYN 3.75G IV TID, DUONEBS QID, LOVENOX 40MG SC DAILY, DIFLUCAN 100MG PO DAILY, NORCO 10/325MG PO Q8H PRN, AND HIS HOME MEDICATIONS. WE WILL CONTINUE WITH CURRENT ANTIBIOTICS AND PLAN OF CARE TODAY. OTHERWISE, WE PLAN TO FOLLOW UP WITH AM LABS AND CONTINUE TO MONITOR. - Past Medical Family Social History Past Med/Fam/Surg Hx: No changes since H&P Allergies: Allergies niacin Allergy (Verified 09/20/19 10:09) - Review of Systems ROS: No change since H&P - Vital Signs and I&O's Vital Signs: Temperature 100.2 F Pulse Rate [Left Brachial] 83 Pulse Rate [Right Brachial] 80 Pulse Rate 85 Respiratory Rate 18 Blood Pressure [Right Arm] 118/71 Blood Pressure [Left Arm] 132/61 Blood Pressure 121/52 O2 Sat by Pulse Oximetry 92 Intake and Output: Intake & Output 11/09/19 11/10/19 11/11/19 11/12/19 11:59 11:59 11:59 11:59 Intake Total 1430 / 1430 1534 / 1534 1528 / 1528 700 / 700 Output Total 3150 / 3150 1900 / 1900 1375 / 1375 900 / 900 Balance -1720 / -1720 -366 / -366 153 / 153 -200 / -200 - Physical Exam Oriented: Normal Ear: Normal Nose: Normal Throat: Normal Respiratory: Generalized, Diminished Cardiovascular: Normal : Normal Auscultation: Bowel Sounds: Normal Tenderness: Diffuse, Mild Skin: Normal, Wound Musculoskeletal: Back:Thoracic, Back:Lumbar Psychiatric: Normal Mood Description: Calm Affect: Normal Speech Pattern: Clear, Appropriate - Laboratory and Diagnostics Result Diagrams: 11/11/19 04:00 11/11/19 04:00 Labs: 11/04/19 09:45 Blood Blood Culture - Final 11/04/19 09:45 Blood Blood Culture - Final 11/07/19 04:12 Urine,Catheterized Urine Culture - Final 11/02/19 00:55 Blood Blood Culture - Final 11/02/19 00:49 Blood Blood Culture - Final 11/01/19 15:00 Blood Blood Culture - Final 11/01/19 14:55 Blood Blood Culture - Final 11/01/19 21:45 Sputum - Expectorated Sputum Sputum Culture - Final 11/01/19 21:45 Sputum - Expectorated Sputum - Final 11/02/19 09:10 Urine,Clean Catch Urine Culture - Final Laboratory WBC 21.5 X10^3/uL (3.6-10.0) H D 11/11/19 04:00 RBC 2.85 X10^6/uL (4.7-6.0) L 11/11/19 04:00 Hgb 8.0 g/dL (13.5-18.0) L 11/11/19 04:00 Hct 24.7 % (42.0-54.0) L 11/11/19 04:00 MCV 86.9 fL (80.0-100.0) 11/11/19 04:00 MCH 28.2 pg (27.0-34.0) 11/11/19 04:00 MCHC 32.5 g/dL (33.0-35.0) L 11/11/19 04:00 RDW 16.4 % (11.6-16.5) 11/11/19 04:00 Plt Count 264 X10^3/uL (150.0-450.0) 11/11/19 04:00 Plt Count Comment Adequate (ADEQUATE) 11/11/19 04:00 MPV 8.9 fL (7.4-11.0) 11/11/19 04:00 Neut % (Auto) 82.7 % (42.0-75.0) H 11/11/19 04:00 Lymph % (Auto) 10.2 % (21.0-51.0) L 11/11/19 04:00 [place] % (Auto) 4.9 % (0.0-13.0) 11/11/19 04:00 Eos % (Auto) 1.9 % (0.9-2.9) 11/11/19 04:00 Baso % (Auto) 0.3 % (0.2-1.0) 11/11/19 04:00 Neut # (Auto) 17.8 x10^3/uL (2.2-4.8) H 11/11/19 04:00 Lymph # (Auto) 2.2 X10^3/uL (1.3-2.9) 11/11/19 04:00 [place] # (Auto) 1.1 x10^3/uL (0.3-0.8) H 11/11/19 04:00 Eos # (Auto) 0.4 x10^3/uL (0.0-0.2) H 11/11/19 04:00 Baso # (Auto) 0.1 X10^3/uL (0.0-0.1) 11/11/19 04:00 Absolute Nucleated RBC 0.0 /100WBC 11/11/19 04:00 Total Counted 100 11/11/19 04:00 Neutrophils % (Manual) 86 % (39-76) H 11/11/19 04:00 Band Neutrophils % 1 % (0-10) 11/11/19 04:00 Lymphocytes % (Manual) 10 % (13-43) L 11/11/19 04:00 Monocytes % (Manual) 2 % (4-9) L 11/11/19 04:00 Eosinophils % (Manual) 1 % (0-6) 11/11/19 04:00 Metamyelocytes % 1 11/10/19 11:40 Myelocytes % 1 11/10/19 11:40 Plt Morphology Comment Normal (NORMAL) 11/11/19 04:00 RBC Morphology Abnormal (NORMAL) 11/11/19 04:00 Hypochromasia Slight A 11/11/19 04:00 Sodium 138 mmol/L (136-145) 11/11/19 04:00 Corrected Sodium TNP 11/11/19 04:00 Potassium 3.6 mmol/L (3.5-5.1) 11/11/19 04:00 Chloride 103 mmol/L (98-107) 11/11/19 04:00 Carbon Dioxide 29.4 mmol/L (21-32) 11/11/19 04:00 BUN 16 mg/dL (7-18) 11/11/19 04:00 Creatinine 1.25 mg/dL (0.70-1.30) 11/11/19 04:00 Est GFR (MDRD) Af Amer > 60 (>60) 11/11/19 04:00 Est GFR (MDRD) Non-Af 58 (>60) L 11/11/19 04:00 Glucose 105 mg/dL (65-99) H 11/11/19 04:00 Lactic Acid 1.8 mmol/L (0.4-2.0) 11/10/19 11:40 Calcium 9.0 mg/dL (8.5-10.1) 11/11/19 04:00 Corrected Calcium 10.7 mg/dL (8.5-10.1) H 11/11/19 04:00 Magnesium 1.7 mg/dL (1.7-2.9) 11/11/19 04:00 Total Bilirubin 0.10 mg/dL (0.2-1.0) L 11/11/19 04:00 AST 38 Units/L (15-37) H 11/11/19 04:00 ALT 36 Units/L (12-78) 11/11/19 04:00 Alkaline Phosphatase 215 Units/L (46-116) H 11/11/19 04:00 Creatine Kinase 27 Units/L (39-308) L 11/01/19 13:37 CK-MB (CK-2) < 1.0 ng/mL (0-4.0) 11/01/19 13:37 CK/CKMB % Calc 3.7 % (<4) 11/01/19 13:37 Troponin I 0.06 ng/mL (0-1.5) 11/01/19 13:37 Total Protein 6.1 g/dL (6.4-8.2) L 11/11/19 04:00 Albumin 1.9 g/dL (3.4-5.0) L 11/11/19 04:00 Globulin 4.2 g/dL (2.5-4.5) 11/11/19 04:00 Albumin/Globulin Ratio 0.5 Ratio (1.1-2.1) L 11/11/19 04:00 Total PSA < 0.13 ng/mL (0.13-4.0) L 11/04/19 08:18 Total Estradiol 44.4 pg/mL (10.0-42.0) H 11/03/19 07:09 Total Testosterone 215 ng/dL (300-720) L 11/03/19 07:09 Specimen Type Catherized urine 11/07/19 04:12 Urine Color Yellow (YELLOW) 11/07/19 04:12 Urine Appearance Hazy (CLEAR) 11/07/19 04:12 Urine pH 5.0 (5.0 - 8.0) 11/07/19 04:12 Ur Specific [place] 1.010 (1.000-1.030) 11/07/19 04:12 Urine Protein 1+ (NEGATIVE) 11/07/19 04:12 Urine Glucose (UA) Negative (NEGATIVE) 11/07/19 04:12 Urine Ketones Negative (NEGATIVE) 11/07/19 04:12 Urine Occult Blood 1+ (NEGATIVE) 11/07/19 04:12 Urine Nitrite Negative (NEGATIVE) 11/07/19 04:12 Urine Bilirubin Negative (NEGATIVE) 11/07/19 04:12 Urine Urobilinogen Normal (NORMAL) 11/07/19 04:12 Ur Leukocyte Esterase Negative (NEGATIVE) 11/07/19 04:12 Urine RBC 0-2 /HPF (0-3) 11/07/19 04:12 Urine WBC 0-2 /HPF (0-5) 11/07/19 04:12 Ur Squamous Epith Cells Few /HPF (NEGATIVE) 11/07/19 04:12 Other Crystals Many /HPF (NEGATIVE) 11/05/19 10:17 Urine Bacteria 2+ /HPF (NEGATIVE) 11/07/19 04:12 Hyaline Casts Few /LPF (NEGATIVE) 11/07/19 04:12 Granular Casts Few /LPF (NEGATIVE) 11/07/19 04:12 Urine Mucus Moderate /HPF (NEGATIVE) 11/02/19 09:10 Ur Culture Indicated? Yes/culture set up 11/07/19 04:12 Ur Random Sodium 62 mmol/L (40-220) 11/02/19 09:10 Stool Description 75g formed brown 11/05/19 08:35 Stl Occult Blood (IFOB) Negative (NEGATIVE) 11/05/19 08:35 Vancomycin Trough 17.4 ug/mL (-) 11/05/19 21:05 Influenza Type A Ag Negative-presumptive (NEGATIVE) 11/01/19 15:10 Influenza Type B Ag Negative-presumptive (NEGATIVE) 11/01/19 15:10 Mycoplasma pneumon IgG Negative (NEGATIVE) 11/01/19 13:37 SARS-CoV-2 (PCR) Negative (NEGATIVE) 11/01/19 14:52 Blood Type O POSITIVE 11/02/19 07:55 Antibody Screen Negative 11/02/19 07:55 Crossmatch See Detail 11/02/19 07:55 - Plan (1) Bilateral pneumonia Status: Acute Qualifiers: Pneumonia type: due to unspecified organism Lung location: lower lobe of lung Qualified Code(s): J18.9 - Pneumonia, unspecified organism Plan: CONTINUE IV ANTIBIOTICS, NEB [place] (2) Pancreatic cancer Status: Acute Qualifiers: Pancreatic malignancy location: unspecified
[2019-11-12] MEDS: NORCO 10/325 TAB PO PRN (05:36)
[2019-11-12 06:07] LABS: BASOPHILS # (AUTO) 0.1 X10^3/uL (0.0-0.1); EOSINOPHILS # (AUTO) 0.3 x10^3/uL (0.0-0.2); HEMATOCRIT 25.6 % (42.0-54.0); HEMOGLOBIN 8.4 g/dL (13.5-18.0); LYMPHOCYTES # (AUTO) 2.1 X10^3/uL (1.3-2.9); MEAN CORPUSCULAR HEMOGLOBIN 28.7 pg (27.0-34.0); MEAN CORPUSCULAR HGB CONC 32.9 g/dL (33.0-35.0); MEAN CORPUSCULAR VOLUME 87.1 fL (80.0-100.0); MEAN PLATELET VOLUME 8.7 fL (7.4-11.0); MONOCYTES # (AUTO) 0.8 x10^3/uL (0.3-0.8); MONOCYTES % (AUTO) 5.2 % (0.0-13.0); NEUTROPHILS # (AUTO) 11.9 x10^3/uL (2.2-4.8); NEUTROPHILS % (AUTO) 77.8 % (42.0-75.0); PLATELET COUNT 273 X10^3/uL (150.0-450.0); RED BLOOD COUNT 2.94 X10^6/uL (4.7-6.0); RED CELL DISTRIBUTION WIDTH 16.7 % (11.6-16.5); WHITE BLOOD COUNT 15.3 X10^3/uL (3.6-10.0)
[2019-11-12] MEDS: FERROUS GLUCONATE PO SCH (06:07)
[2019-11-12] MEDS: NEURONTIN CAP 300 MG PO SCH (06:07)
[2019-11-12] MEDS: SYNTHROID 175 mcg TAB PO SCH (06:08)
[2019-11-12 06:37] LABS: ALANINE AMINOTRANSFERASE 34 Units/L (12-78); ALBUMIN 2.2 g/dL (3.4-5.0); ALKALINE PHOSPHATASE 227 Units/L (46-116); ASPARTATE AMINO TRANSFERASE 33 Units/L (15-37); BLOOD UREA NITROGEN 12 mg/dL (7-18); CALCIUM 9.1 mg/dL (8.5-10.1); CARBON DIOXIDE 28.4 mmol/L (21-32); CHLORIDE 103 mmol/L (98-107); COR CA(FOR HYPOALB) 10.5 mg/dL (8.5-10.1); CREATININE 1.22 mg/dL (0.70-1.30); SODIUM 137 mmol/L (136-145); TOTAL PROTEIN 6.8 g/dL (6.4-8.2); eGFR NON BLACK RACES 60 (>60)
--- NOTE | 2019-11-12 06:47 | RAD ---
HISTORYShortness of breathSTUDYCHEST x-ray, 1 VIEWCOMPARISONX-ray 11/11/2019FINDINGSImproving lower lobe infiltrates. Heart is likely normal in size. Possible tiny left pleural effusion. No pneumothorax is seen.IMPRESSIONImproving lower lobe infiltrates.Electronically signed by: Ignacio Juarez (Nov 12, 2019 06:45:58)
[2019-11-12 08:19] VITALS: BP 142/66
[2019-11-12] MEDS ORDERED: ZESTRIL TAB 20 MG ONE (09:09)
[2019-11-12] MEDS: NYSTATIN POWDER TOP SCH (09:16)
[2019-11-12] MEDS: ALBUMIN HUMAN 25%- 100 ML 100 ML IV SCH (09:16)
[2019-11-12] MEDS: FLOMAX PO SCH (09:17)
[2019-11-12] MEDS: ZESTRIL TAB 20 MG PO SCH (09:18)
[2019-11-12] MEDS: DUONEB 0.5 MG/3 MG (3 mL) NEB SCH (09:41)
[2019-11-12] MEDS: MERREM VIAL 1 G in NS 100 ML IV + SPIKE MINIBAG* 100 ML IV SCH ×2 (09:58)
[2019-11-12] MEDS: LOVENOX INJ 40 MG SYR SC SCH (14:34)
--- NOTE | 2019-11-12 14:47 | W.DIS.FURT ---
Summary of Discharge Admission Diagnosis Vital Signs: Vital Signs (72 hours) 11/09/19 15:39 11/09/19 16:39 11/09/19 20:00 Temperature 100.6 F H Pulse Rate Pulse Rate [Left Brachial] 104 H Pulse Rate [Right Brachial] Respiratory Rate 18 18 18 Blood Pressure [Left Arm] Blood Pressure [Right Arm] 91/49 O2 Sat by Pulse Oximetry 11/09/19 20:12 11/09/19 20:20 11/09/19 21:20 Temperature Pulse Rate 88 Pulse Rate [Left Brachial] Pulse Rate [Right Brachial] Respiratory Rate 18 18 Blood Pressure [Left Arm] Blood Pressure [Right Arm] O2 Sat by Pulse Oximetry 92 L 11/10/19 00:00 11/10/19 04:00 11/10/19 08:00 Temperature 97.6 F 97.9 F 98.3 F Pulse Rate Pulse Rate [Left Brachial] 73 68 72 Pulse Rate [Right Brachial] Respiratory Rate 24 20 20 Blood Pressure [Left Arm] Blood Pressure [Right Arm] 97/52 112/59 117/57 O2 Sat by Pulse Oximetry 96 98 98 11/10/19 09:06 11/10/19 12:00 11/10/19 16:00 Temperature 97.6 F 97.6 F Pulse Rate 67 Pulse Rate [Left Brachial] Pulse Rate [Right Brachial] 69 80 Respiratory Rate 20 20 Blood Pressure [Left Arm] 132/61 Blood Pressure [Right Arm] 100/49 O2 Sat by Pulse Oximetry 88 L 98 98 11/10/19 19:37 11/10/19 20:00 11/10/19 20:36 Temperature 98.5 F Pulse Rate Pulse Rate [Left Brachial] 80 Pulse Rate [Right Brachial] Respiratory Rate 18 18 18 Blood Pressure [Left Arm] Blood Pressure [Right Arm] 116/56 O2 Sat by Pulse Oximetry 98 11/10/19 21:15 11/11/19 00:00 11/11/19 04:00 Temperature 99.5 F 98.5 F Pulse Rate 80 Pulse Rate [Left Brachial] 81 81 Pulse Rate [Right Brachial] Respiratory Rate 20 16 Blood Pressure [Left Arm] Blood Pressure [Right Arm] 132/62 125/60 O2 Sat by Pulse Oximetry 96 94 L 96 11/11/19 08:00 11/11/19 08:57 11/11/19 11:55 Temperature 99.8 F H 99.4 F Pulse Rate 75 Pulse Rate [Left Brachial] 71 76 Pulse Rate [Right Brachial] Respiratory Rate 20 20 Blood Pressure [Left Arm] Blood Pressure [Right Arm] 136/63 132/63 O2 Sat by Pulse Oximetry 93 L 98 93 L 11/11/19 16:00 11/11/19 19:55 11/11/19 20:00 Temperature 99.8 F H 100.2 F H Pulse Rate Pulse Rate [Left Brachial] 85 83 Pulse Rate [Right Brachial] Respiratory Rate 20 18 18 Blood Pressure [Left Arm] Blood Pressure [Right Arm] 119/81 118/71 O2 Sat by Pulse Oximetry 93 L 92 L 11/11/19 20:55 11/11/19 21:06 11/12/19 00:00 Temperature 99.5 F Pulse Rate 85 Pulse Rate [Left Brachial] 69 Pulse Rate [Right Brachial] Respiratory Rate 18 18 Blood Pressure [Left Arm] Blood Pressure [Right Arm] 150/67 O2 Sat by Pulse Oximetry 92 L 96 11/12/19 04:00 11/12/19 05:36 11/12/19 06:36 Temperature 97.7 F Pulse Rate Pulse Rate [Left Brachial] 76 Pulse Rate [Right Brachial] Respiratory Rate 17 18 18 Blood Pressure [Left Arm] Blood Pressure [Right Arm] 163/71 O2 Sat by Pulse Oximetry 98 11/12/19 08:00 11/12/19 09:41 11/12/19 12:00 Temperature 98.4 F 100.3 F H Pulse Rate 80 Pulse Rate [Left Brachial] Pulse Rate [Right Brachial] 63 Respiratory Rate 18 Blood Pressure [Left Arm] Blood Pressure [Right Arm] 142/66 O2 Sat by Pulse Oximetry 97 99 Labs: Laboratory Last Values WBC 15.3 X10^3/uL (3.6-10.0) H 11/12/19 04:05 RBC 2.94 X10^6/uL (4.7-6.0) L 11/12/19 04:05 Hgb 8.4 g/dL (13.5-18.0) L 11/12/19 04:05 Hct 25.6 % (42.0-54.0) L 11/12/19 04:05 MCV 87.1 fL (80.0-100.0) 11/12/19 04:05 MCH 28.7 pg (27.0-34.0) 11/12/19 04:05 MCHC 32.9 g/dL (33.0-35.0) L 11/12/19 04:05 RDW 16.7 % (11.6-16.5) H 11/12/19 04:05 Plt Count 273 X10^3/uL (150.0-450.0) 11/12/19 04:05 Plt Count Comment Adequate (ADEQUATE) 11/11/19 04:00 MPV 8.7 fL (7.4-11.0) 11/12/19 04:05 Neut % (Auto) 77.8 % (42.0-75.0) H 11/12/19 04:05 Lymph % (Auto) 14.0 % (21.0-51.0) L 11/12/19 04:05 [place] % (Auto) 5.2 % (0.0-13.0) 11/12/19 04:05 Eos % (Auto) 2.0 % (0.9-2.9) 11/12/19 04:05 Baso % (Auto) 1.0 % (0.2-1.0) 11/12/19 04:05 Neut # (Auto) 11.9 x10^3/uL (2.2-4.8) H 11/12/19 04:05 Lymph # (Auto) 2.1 X10^3/uL (1.3-2.9) 11/12/19 04:05 [place] # (Auto) 0.8 x10^3/uL (0.3-0.8) 11/12/19 04:05 Eos # (Auto) 0.3 x10^3/uL (0.0-0.2) H 11/12/19 04:05 Baso # (Auto) 0.1 X10^3/uL (0.0-0.1) 11/12/19 04:05 Absolute Nucleated RBC 0.0 /100WBC 11/12/19 04:05 Total Counted 100 11/11/19 04:00 Neutrophils % (Manual) 86 % (39-76) H 11/11/19 04:00 Band Neutrophils % 1 % (0-10) 11/11/19 04:00 Lymphocytes % (Manual) 10 % (13-43) L 11/11/19 04:00 Monocytes % (Manual) 2 % (4-9) L 11/11/19 04:00 Eosinophils % (Manual) 1 % (0-6) 11/11/19 04:00 Metamyelocytes % 1 11/10/19 11:40 Myelocytes % 1 11/10/19 11:40 Plt Morphology Comment Normal (NORMAL) 11/11/19 04:00 RBC Morphology Abnormal (NORMAL) 11/11/19 04:00 Hypochromasia Slight A 11/11/19 04:00 Sodium 137 mmol/L (136-145) 11/12/19 04:05 Corrected Sodium TNP 11/12/19 04:05 Potassium 4.3 mmol/L (3.5-5.1) 11/12/19 04:05 Chloride 103 mmol/L (98-107) 11/12/19 04:05 Carbon Dioxide 28.4 mmol/L (21-32) 11/12/19 04:05 BUN 12 mg/dL (7-18) 11/12/19 04:05 Creatinine 1.22 mg/dL (0.70-1.30) 11/12/19 04:05 Est GFR (MDRD) Af Amer > 60 (>60) 11/12/19 04:05 Est GFR (MDRD) Non-Af 60 (>60) 11/12/19 04:05 Glucose 93 mg/dL (65-99) 11/12/19 04:05 Lactic Acid 1.8 mmol/L (0.4-2.0) 11/10/19 11:40 Calcium 9.1 mg/dL (8.5-10.1) 11/12/19 04:05 Corrected Calcium 10.5 mg/dL (8.5-10.1) H 11/12/19 04:05 Magnesium 1.7 mg/dL (1.7-2.9) 11/11/19 04:00 Total Bilirubin 0.20 mg/dL (0.2-1.0) 11/12/19 04:05 AST 33 Units/L (15-37) 11/12/19 04:05 ALT 34 Units/L (12-78) 11/12/19 04:05 Alkaline Phosphatase 227 Units/L (46-116) H 11/12/19 04:05 Creatine Kinase 27 Units/L (39-308) L 11/01/19 13:37 CK-MB (CK-2) < 1.0 ng/mL (0-4.0) 11/01/19 13:37 CK/CKMB % Calc 3.7 % (<4) 11/01/19 13:37 Troponin I 0.06 ng/mL (0-1.5) 11/01/19 13:37 Total Protein 6.8 g/dL (6.4-8.2) 11/12/19 04:05 Albumin 2.2 g/dL (3.4-5.0) L 11/12/19 04:05 Globulin 4.6 g/dL (2.5-4.5) H 11/12/19 04:05 Albumin/Globulin Ratio 0.5 Ratio (1.1-2.1) L 11/12/19 04:05 Total PSA < 0.13 ng/mL (0.13-4.0) L 11/04/19 08:18 Total Estradiol 44.4 pg/mL (10.0-42.0) H 11/03/19 07:09 Total Testosterone 215 ng/dL (300-720) L 11/03/19 07:09 Specimen Type Catherized urine 11/07/19 04:12 Urine Color Yellow (YELLOW) 11/07/19 04:12 Urine Appearance Hazy (CLEAR) 11/07/19 04:12 Urine pH 5.0 (5.0 - 8.0) 11/07/19 04:12 Ur Specific [place] 1.010 (1.000-1.030) 11/07/19 04:12 Urine Protein 1+ (NEGATIVE) 11/07/19 04:12 Urine Glucose (UA) Negative (NEGATIVE) 11/07/19 04:12 Urine Ketones Negative (NEGATIVE) 11/07/19 04:12 Urine Occult Blood 1+ (NEGATIVE) 11/07/19 04:12 Urine Nitrite Negative (NEGATIVE) 11/07/19 04:12 Urine Bilirubin Negative (NEGATIVE) 11/07/19 04:12 Urine Urobilinogen Normal (NORMAL) 11/07/19 04:12 Ur Leukocyte Esterase Negative (NEGATIVE) 11/07/19 04:12 Urine RBC 0-2 /HPF (0-3) 11/07/19 04:12 Urine WBC 0-2 /HPF (0-5) 11/07/19 04:12 Ur Squamous Epith Cells Few /HPF (NEGATIVE) 11/07/19 04:12 Other Crystals Many /HPF (NEGATIVE) 11/05/19 10:17 Urine Bacteria 2+ /HPF (NEGATIVE) 11/07/19 04:12 Hyaline Casts Few /LPF (NEGATIVE) 11/07/19 04:12 Granular Casts Few /LPF (NEGATIVE) 11/07/19 04:12 Urine Mucus Moderate /HPF (NEGATIVE) 11/02/19 09:10 Ur Culture Indicated? Yes/culture set up 11/07/19 04:12 Ur Random Sodium 62 mmol/L (40-220) 11/02/19 09:10 Stool Description 75g formed brown 11/05/19 08:35 Stl Occult Blood (IFOB) Negative (NEGATIVE) 11/05/19 08:35 Stool for White Cells Negative (NEGATIVE) 11/12/19 09:25 Stl C. diff Tox B Gene Negative (NEGATIVE) 11/12/19 09:25 Stl C. diff [id number] Negative (NEGATIVE) 11/12/19 09:25 Vancomycin Trough 17.4 ug/mL () 11/05/19 21:05 Influenza Type A Ag Negative-presumptive (NEGATIVE) 11/01/19 15:10 Influenza Type B Ag Negative-presumptive (NEGATIVE) 11/01/19 15:10 Mycoplasma pneumon IgG Negative (NEGATIVE) 11/01/19 13:37 SARS-CoV-2 (PCR) Negative (NEGATIVE) 11/01/19 14:52 Blood Type O POSITIVE 11/02/19 07:55 Antibody Screen Negative 11/02/19 07:55 Crossmatch See Detail 11/02/19 07:55 Reason For Visit: BILATERAL PNEUMONIA Discharge Diagnosis All Active Problems (Updated 11/10/19 @ 12:26 by Sal Mccall) Urinary retention (Acute) Generalized weakness (Acute) UTI (urinary tract infection) (Acute) Hypomagnesemia (Acute) Hypokalemia (Acute) FARRAH (acute kidney injury) (Acute) Hypotension (Acute) Anemia (Acute) Pancreatic cancer (Acute) Pneumonia (Acute) Bilateral pneumonia (Acute) Plan of Treatment: Continue with present treatment and follow up plan. Pt is to keep follow up appointment as instructed and take medications as ordered. Discharge Medications Discharge Medications: niacin Allergy (Verified 04/30/20 10:09) CONTINUE taking the following medications amlodipine 5 mg PO DAILY 11/01/19 [History] cefpodoxime 200 mg PO BID 11/01/19 [History] gabapentin 300 mg PO TID 11/01/19 [History] lisinopril 20 mg PO DAILY 11/01/19 [History]
== END 2019-11-12 14:20 | disposition short-term general hospital (02) | DRG 871 ==
LOC: ER 13:08 → MED/SURG 16:50
PROVIDERS: ADMIT Internal Medicine; ATTEND Internal Medicine
DX: J18.8 Other pneumonia, unspecified organism; E87.6 Hypokalemia; N30.00 Acute cystitis without hematuria; R50.9 Fever, unspecified; N17.8 Other acute kidney failure; I95.89 Other hypotension; R23.8 Other skin changes; E83.42 Hypomagnesemia; A41.89 Other specified sepsis; D64.89 Other specified anemias; Z11.59 Encounter for screening for other viral diseases; M54.5 Low back pain; E78.2 Mixed hyperlipidemia; C25.9 Malignant neoplasm of pancreas, unspecified; K21.9 Gastro-esophageal reflux disease without esophagitis; I10 Essential (primary) hypertension
CPT/HCPCS: 36415; 36430; 71010; 71045; 74177; 80048; 80053; 80202; 81001; 82270; 82550; 82553; 82565; 82670; 83605; 83630; 83735; 84153; 84300; 84403; 84484; 85014; 85018; 85025; 85060; 86738; 86850; 86900; 86901; 86922; 87040; 87045; 87070; 87086; 87205; 87400; 87449; 87493; 87635; 87804; 87899; 93005; 94640; 94760; 96365; 96374; 96375; 97110; 97162; 97167; 97530; 97535; 99284; A4216; A4222; J0456; J0696; J1650; J2185; J2543; J3370; J3475; J3490; J7030; J7040; J7050; J7060; J7120; J7620; P9016; P9047